=== PATIENT | female | born 1950 | race Caucasian/White ===

== ENCOUNTER → 2017-06-23 | Outpatient (CLI) | payer MEDICARE ==
[2017-06-23 11:37] LABS: Cholesterol 145 mg/dL (<200); HDL Cholesterol 68 mg/dL (40-60); LDL Cholesterol,Calculated 54 mg/dL (0-99); Triglycerides 115 mg/dL (<150)
== END | disposition home or self-care (01) ==
LOC: EEVIPCON 10:39 → LABWHC1 10:39
PROVIDERS: ATTEND Psychiatry & Neurology Pain Medicine
DX: I63.9 Cerebral infarction, unspecified (principal)
CPT/HCPCS: 36415; 80061

== ENCOUNTER 2021-09-12 10:58 | Day surgery (SDC) | payer MEDICARE ==
[2021-09-09 12:41] VITALS: BMI 21.9
[~2021-09-12 10:58] MED LIST: HYDROmorphone 0.5 MG/0.5 ML SYRINGE IVP PRN; LACTATED RINGERS 1,000 ML IV SCH; LIDOCAINE 1% (10MG/ML) FOR IV START INTRADERMA PRN; ONDANSETRON 4 MG/2 ML VIAL IVP ONE
[2021-09-12] MEDS ORDERED: ONDANSETRON 4 MG/2 ML VIAL IVP ONE (12:07)
[2021-09-12] MEDS ORDERED: fentaNYL (PF) 50 MCG/ML 2 ML AMP IVP ONE (12:18)
[2021-09-12] MEDS ORDERED: MIDAZOLAM 2 MG/2 ML VIAL IVP ONE (12:18)
[2021-09-12] MEDS ORDERED: CLINDAMYCIN 600 MG in DEXTROSE 5% IN WATER 50 ML IVPB STA ×2 (12:25)
[2021-09-12] MEDS ORDERED: LIDOCAINE 2% INJ 20 MG/ML (2 ML VIAL) ONE (12:34)
[2021-09-12] MEDS ORDERED: ROPIVACAINE 5 MG/ML 30 ML VIAL ONE (12:34)
[2021-09-12] MEDS ORDERED: PROPOFOL 10 MG/ML 20 ML VIAL IV ONE (12:34)
[2021-09-12] MEDS ORDERED: SODIUM CHLORIDE 0.9% (PF) 10 ML VIAL ONE (12:34)
[2021-09-12 13:38] VITALS: TEMP 97.2
--- NOTE | 2021-09-12 13:47 | P.ANPRN ---
Procedure Note - Anesthesia - Nerve Block Performed Left Axillary Single Time Out Performed: Yes ([id number]) Date of Procedure: 09/12/21 Procedure Start Time: 12:18 Procedure Stop Time: 12:24 Location of Patient: PreOp Indication: Acute Post-Operative Pain, Requested by Surgeon Specifically requested for management of pain by DrDaniella: Blair Kurtz Sedation Type: Sedate with meaningful contact maintained Preparation: Sterile Prep Position: Supine Catheter: None Needle Types: Pajunk Needle Gauge: 21 Ultrasound used to visualize needle placement: Yes Ultrasound used to observe medication spread: Yes Injectate: 0.5% Ropivacaine (see comment for volume) (7.5cc + 2.5cc nacl at each median, radial, ulnar and msklcut) Blood Aspirated: No Pain Paresthesia on Injection Noted: No Resistance on Injection: Normal Image Stored and Saved: Yes
--- NOTE | 2021-09-12 14:09 | P.OP ---
Date of Procedure: 09/12/21 Procedure(s) Performed: PREOPERATIVE DIAGNOSES: 1. Left distal radius comminuted displaced Colles' type fracture 2. Moderate osteoporosis POSTOPERATIVE DIAGNOSES: 1. Left distal radius comminuted displaced Colles' type fracture 2. Moderate osteoporosis PROCEDURES PERFORMED: 1. Left distal radius fracture closed reduction and percutaneous pinning 2. Short arm splint placement ANESTHESIA: java software: None COMPLICATIONS: None ESTIMATED BLOOD LOSS: Less than 1 mL. DISPOSITION: To post-anesthesia care unit INDICATIONS: Virginia is a 71-year-old female who fell a couple weeks ago and sustained a displaced fracture of the distal radius. The fracture was initially reduced with good alignment, however has shifted out of place over the past week. We have discussed leaving this fracture alone and letting it heal with residual deformity which would probably be acceptable in terms of function, but considering the amount of dorsal angulation I feel that closed reduction percutaneous pinning would the optimal treatment for this situation. The patient wishes to proceed with surgery. I discussed the steps of the surgery as well as potential risks and complications as being inclusive of, but not limited to: Bleeding, infection, scarring, discomfort, blood vessel and/or nerve damage, need for further surgery, deformity, stiffness, tendon injury, pin site infection, osteomyelitis, loss of limb or life, and other risks. The patient is aware these risks and wishes to proceed with surgery. The consent form has been signed. PROCEDURE: After appropriate consent was obtained, the patient was taken to the operating room placed in the supine position. Anesthesia was initiated, and after confirmation of adequate anesthesia, the patient was carefully positioned. Care was taken to make sure that all pressure points were adequately padded. Prepping and draping were completed in the usual aseptic fashion using ChloraPrep. Timeout was called, confirming patient identity, side, procedure, and administration of antibiotics. The patient's fracture was reduced using manual manipulation technique. This was performed under mini C-arm guidance. Once an acceptable reduction had been obtained, 2 small 3 mm incisions were created on the dorsal aspect of the wrist and spread down to bone using a small mosquito hemostat. 0.062 inch K wires were deployed through these incisions using Kapandji intra-focal pinning technique into the proximal fragment under mini C-arm guidance. 2 such pins were used: one between extensor compartments 3 and 4, and another between compartments 4 and 5. Both pins had good purchase in the volar cortex, and the fracture was buttressed into a very good position on the lateral view. Additionally, one radial styloid pin was placed just dorsal to the first dorsal compartment and directed across the fracture site into the proximal fragment cortex. All 3 pins had satisfactory far cortical purchase. Final mini C-arm images were taken and saved, showing satisfactory realignment of the distal radius fracture. Pins were bent and trimmed. Relaxing incisions were created around the pins using a 15 blade as necessary. Pin protectors were applied. A nonadherent dressing was applied over the pin sites and a well-padded well molded volar splint with the wrist in neutral was applied. Patient tolerated the procedure well and taken to recovery room in stable condition. Counts were correct.
[2021-09-12] MEDS ORDERED: LACTATED RINGERS 1,000 ML IV ONE (14:33)
[2021-09-12 15:05] VITALS: BP 132/82; PULSE 80; RESP 18
== END 2021-09-12 15:50 | disposition home or self-care (01) ==
LOC: OR 10:58
PROVIDERS: ATTEND Orthopaedic Surgery
DX: S52.532A Colles' fracture of left radius, initial encounter for closed fracture (principal); M81.0 Age-related osteoporosis without current pathological fracture; G89.18 Other acute postprocedural pain
CPT/HCPCS: 64415; 25606; J2250; J2405; J3010; J2795; J2704; J1170; J2001

== ENCOUNTER → 2022-02-03 | Outpatient (CLI) | payer MEDICARE ==
--- NOTE | 2022-02-03 20:34 | MR ---
EXAMINATION TYPE: MR cervical spine wo con DATE OF EXAM: 02/03/2022 COMPARISON: None HISTORY: Neck pain, degeneration, stenosis TECHNIQUE: Multiplanar, multisequence images of the cervical spine were acquired without contrast. C2-C3: No evidence for degenerative disc disease. No disc bulge/herniation or protrusion. No Canal stenosis. Foramina are patent bilaterally. There is some facet arthropathy change. C3-C4: Facet arthropathy and uncovertebral joint hypertrophy result in some right-sided foraminal enc roachment, no evident disc herniation. C4-C5: Uncovertebral joint hypertrophy causes some mild right-sided foraminal encroachment which is c ontributed by some anterolisthesis grade 1 C4-5, no disc herniation. C5-C6: Posterior extension endplate disc complex causes mild anterior mass effect on the thecal sac. Uncovertebral joint hypertrophy causes bilateral foraminal encroachment. C6-C7: Posterior extension endplate disc complex causes mild anterior mass effect on the thecal sac. Uncovertebral joint hypertrophy contributes to cause foraminal encroachment bilaterally. C7-T1: No evidence for degenerative disc disease. No disc bulge/herniation or protrusion. No Canal stenosis. Foramina are patent bilaterally. Cervical segments are intact. There is a scoliotic curvature in the thoracic spine, compensatory cur ve in the cervical spine. There is multilevel spondylosis. No significant spinal stenosis. Reversal the normal cervical lordosis is noted centered at C5. Cervical spinal cord is of normal signal. Cran iovertebral junction relationships are within normal limits. IMPRESSION: Scoliosis, degenerative disc disease, facet arthropathy, multilevel foraminal encroachment.
== END | disposition home or self-care (01) ==
LOC: RADMRIMAIN 19:30
PROVIDERS: ATTEND Orthopaedic Surgery
DX: M48.02 Spinal stenosis, cervical region (principal); M50.30 Other cervical disc degeneration, unspecified cervical region
CPT/HCPCS: 72141

== ENCOUNTER → 2022-02-06 | Outpatient (CLI) | payer MEDICARE ==
[~2022-02-06] MED LIST changes: +DENOSUMAB 60 MG/ML 1 ML SYRINGE SQ NR; -HYDROmorphone 0.5 MG/0.5 ML SYRINGE IVP PRN; -LACTATED RINGERS 1,000 ML IV SCH; -LIDOCAINE 1% (10MG/ML) FOR IV START INTRADERMA PRN; -ONDANSETRON 4 MG/2 ML VIAL IVP ONE
[2022-02-06 08:01] VITALS: BP 120/73; PULSE 67; RESP 16; TEMP 97.5
== END | disposition home or self-care (01) ==
LOC: PROCWHC3 07:46
PROVIDERS: ATTEND Family Medicine
DX: M81.0 Age-related osteoporosis without current pathological fracture (principal)
CPT/HCPCS: 96372; J0897

== ENCOUNTER 2022-04-05 09:02 | Day surgery (SDC) | payer MEDICARE ==
[2022-03-31 14:21] VITALS: BMI 24.7
[~2022-04-05 09:02] MED LIST changes: -DENOSUMAB 60 MG/ML 1 ML SYRINGE SQ NR; +LACTATED RINGERS 1,000 ML IV SCH; +LIDOCAINE 1% (10MG/ML) FOR IV START INTRADERMA PRN
[2022-04-05 09:49] VITALS: RESP 18; TEMP 98.1
[2022-04-05] MEDS ORDERED: LACTATED RINGERS 1,000 ML IV ONE (09:53)
--- NOTE | 2022-04-05 10:28 | P.GSHP ---
History of Present Illness H&P Date: 04/05/22 CHIEF COMPLAINT: Colon screen HISTORY OF PRESENT ILLNESS: The patient is a 72-year-old female who presents for colon screen. Lower endoscopy was offered for further evaluation and management. PAST MEDICAL HISTORY: Please see list. PAST SURGICAL HISTORY: Please see list. MEDICATIONS: Please see list. ALLERGIES: Please see list. SOCIAL HISTORY: No illicit drug use FAMILY HISTORY: No reports of Crohn disease or ulcerative colitis. REVIEW OF ORGAN SYSTEMS: CONSTITUTIONAL: No reports of fevers or chills. PHYSICAL EXAM: VITAL SIGNS: Stable GENERAL: Well-developed pleasant in no acute distress. HEENT: No scleral icterus. Extraocular movements grossly intact. Moist buccal mucosa. NECK: Supple without lymphadenopathy. CHEST: Unlabored respirations. Equal bilateral excursions. CARDIOVASCULAR: Regular rate and rhythm. Distal 2+ pulses. ABDOMEN: Soft, nontender, nondistended. MUSCULOSKELETAL: No clubbing, cyanosis, or edema. ASSESSMENT: 1. Colon screen. PLAN: 1. Recommend proceeding with a lower endoscopy Past Medical History Past Medical History: COPD, CVA/TIA, Deep Vein Thrombosis (DVT), Hyperlipidemia, Renal Disease, Seizure Disorder Additional Past Medical History / Comment(s): 2017 cva right side weakness and slow responses at times, short term memory impairment s/p stroke. osteoporosis, low BP, glaucoma, stage 3 chronic kidney disease, chronic sinusitis, left hand fracture s/p fall, stomach ulcers, syncope, dehydration, epilepsy over 25 years ago from last seizures, small hole in heart, 3 small brain aneurysms History of Any Multi-Drug Resistant Organisms: None Reported Past Surgical History: Adenoidectomy, Hysterectomy, Tonsillectomy Additional Past Surgical History / Comment(s): left hand surgey, Past Anesthesia/Blood Transfusion Reactions: No Reported Reaction Smoking Status: Current every day smoker - Past Family History Mother Family Medical History: No Reported History Medications and Allergies Home Medications Medication Instructions Recorded Confirmed Type Aspirin 81 mg PO HS 09/09/21 03/31/22 History Atorvastatin [Lipitor] 40 mg PO HS 09/09/21 03/31/22 History Calcium Carbonate [Calcium] 1,200 mg PO DAILY 09/09/21 03/31/22 History Clopidogrel [Plavix] 75 mg PO HS 09/09/21 03/31/22 History Fluticasone Propionate 220 Mcg 2 puff INHALATION RT-BID PRN 09/09/21 03/31/22 History [Flovent 220 Mcg Inhaler (Mhu)] HYDROcodone/APAP 7.5-325MG [[place] 1 tab PO Q6HR PRN 09/09/21 03/31/22 History 7.5-325] Ipratropium [place] 0.06%Nasal 2 spray EA NOSTRIL BID 09/09/21 03/31/22 History [Atrovent Nasal 0.06%] Latanoprost/Pf [Latanoprost 0.005% 1 drop BOTH EYES HS 09/09/21 03/31/22 History Eye Drop] Midodrine HCl [ProAmantine] 2.5 mg PO DAILY 09/09/21 03/31/22 History Ubidecarenone [Co Q-10] 200 mg PO DAILY 09/09/21 03/31/22 History HYDROcodone/APAP 7.5-325MG [[place] 1 - 2 tab PO Q6HR PRN #32 tab 09/12/21 03/31/22 Rx 7.5-325] Denosumab [Prolia] 60 mg SQ DIRECTED 03/31/22 03/31/22 History Allergies Allergy/AdvReac Type Severity Reaction Status Date / Time Penicillins Allergy throat Verified 03/31/22 14:06 swelling Surgical - Exam Vital Signs Temp Pulse Resp BP Pulse Ox 98.1 F 78 18 132/68 98 04/05/22 09:48 04/05/22 09:48 04/05/22 09:48 04/05/22 09:48 04/05/22 09:48
[2022-04-05] MEDS ORDERED: PROPOFOL 10 MG/ML 20 ML VIAL IV ONE (10:30)
[2022-04-05 11:32] VITALS: BP 139/77; PULSE 65
--- NOTE | 2022-04-05 12:04 | P.PCN ---
Date of Procedure: 04/05/22 Description of Procedure: PREOPERATIVE DIAGNOSIS: Colon screening POSTOPERATIVE DIAGNOSIS: Colitis Diverticulosis Internal hemorrhoids, grade 2 OPERATION: Colonoscopy to the distal ascending colon SURGEON: Joanna Dang MD. ANESTHESIA: MAC. INDICATIONS: The patient is an 72-year-old female who presents for colonoscopy screening. Benefits and risks were described and informed consent was obtained. DESCRIPTION OF PROCEDURE: The patient had undergone Sutab prep. The patient had been brought into the operating room and laid in the left lateral decubitus position. After adequate intravenous sedation, the rectum was examined with 2% lidocaine jelly. External hemorrhoids were encountered. The rectal tone was within normal limits. No lesions were palpated in the rectal vault. An Olympus colonoscope was advanced to the distal ascending cold and despite abdominal wall pressure. The prep was good. Sigmoid diverticulosis was encountered. No colonic polyps were found and removed. Colitis at rectum. Retroflexion of the scope demonstrated grade 3 internal hemorrhoids without active bleeding or inflammation. The colon was desufflated. The patient had tolerated the procedure well. Withdrawal time was over 6 minutes. FINDINGS: Aronchick preparation quality scale 2 (1-5) Internal hemorrhoids, grade 3 External hemorrhoids, grade 3. No arteriovenous malformations. Sigmoid diverticulosis Highly redundant sigmoid colon with termination of scope at distal ascending colon Colitis at rectum RECOMMENDATIONS: Recommend barium enema Plan - Discharge Summary New Discharge Prescriptions: Continue Midodrine HCl [ProAmantine] 2.5 mg PO DAILY Latanoprost/Pf [Latanoprost 0.005% Eye Drop] 1 drop BOTH EYES HS HYDROcodone/APAP 7.5-325MG [[place] 7.5-325] 1 tab PO Q6HR PRN PRN Reason: Pain Clopidogrel [Plavix] 75 mg PO HS Atorvastatin [Lipitor] 40 mg PO HS Denosumab [Prolia] 60 mg SQ DIRECTED Fluticasone Propionate 220 Mcg [Flovent 220 Mcg Inhaler] 2 puff INHALATION RT-BID PRN PRN Reason: Shortness Of Breath Calcium Carbonate [Calcium] 1,200 mg PO DAILY Ubidecarenone [Co Q-10] 200 mg PO DAILY Ipratropium [place] 0.06%Nasal [Atrovent Nasal 0.06%] 2 spray EA NOSTRIL BID Aspirin 81 mg PO HS HYDROcodone/APAP 7.5-325MG [[place] 7.5-325] 1 - 2 tab PO Q6HR PRN #32 tab PRN Reason: Pain Discharge Medication List Aspirin 81 mg PO HS 09/09/21 [History] Atorvastatin [Lipitor] 40 mg PO HS 09/09/21 [History] Calcium Carbonate [Calcium] 1,200 mg PO DAILY 09/09/21 [History] Clopidogrel [Plavix] 75 mg PO HS 09/09/21 [History] Fluticasone Propionate 220 Mcg [Flovent 220 Mcg Inhaler] 2 puff INHALATION RT- BID PRN 09/09/21 [History] HYDROcodone/APAP 7.5-325MG [[place] 7.5-325] 1 tab PO Q6HR PRN 09/09/21 [History] Ipratropium [place] 0.06%Nasal [Atrovent Nasal 0.06%] 2 spray EA NOSTRIL BID 09/09/21 [History] Latanoprost/Pf [Latanoprost 0.005% Eye Drop] 1 drop BOTH EYES HS 09/09/21 [History] Midodrine HCl [ProAmantine] 2.5 mg PO DAILY 09/09/21 [History] Ubidecarenone [Co Q-10] 200 mg PO DAILY 09/09/21 [History] HYDROcodone/APAP 7.5-325MG [[place] 7.5-325] 1 - 2 tab PO Q6HR PRN #32 tab 09/12/21 [Rx] Denosumab [Prolia] 60 mg SQ DIRECTED 03/31/22 [History] Follow up Appointment(s)/Referral(s): Joanna Dang MD [STAFF PHYSICIAN] - 04/18/22 Patient Instructions/Handouts: Diverticulosis (GEN), Diverticulosis Diet (GEN), Colitis (ED) Activity/Diet/Wound Care/Special Instructions: Recommend barium enema Discharge Disposition: HOME SELF-CARE
== END 2022-04-05 12:28 | disposition home or self-care (01) ==
LOC: ORWHC2ENDO 09:02
PROVIDERS: ATTEND Surgery Plastic and Reconstructive Surgery
DX: Z12.11 Encounter for screening for malignant neoplasm of colon (principal); K52.9 Noninfective gastroenteritis and colitis, unspecified; K64.4 Residual hemorrhoidal skin tags; K57.30 Diverticulosis of large intestine without perforation or abscess without bleeding; K64.2 Third degree hemorrhoids; J44.9 Chronic obstructive pulmonary disease, unspecified; Z79.51 Long term (current) use of inhaled steroids; F17.200 Nicotine dependence, unspecified, uncomplicated; Z86.73 Personal history of transient ischemic attack (TIA), and cerebral infarction without residual deficits; Z86.718 Personal history of other venous thrombosis and embolism; G40.909 Epilepsy, unspecified, not intractable, without status epilepticus; E78.5 Hyperlipidemia, unspecified; M81.0 Age-related osteoporosis without current pathological fracture; H40.9 Unspecified glaucoma; N18.30 Chronic kidney disease, stage 3 unspecified; Z87.81 Personal history of (healed) traumatic fracture; Z87.19 Personal history of other diseases of the digestive system; Z86.69 Personal history of other diseases of the nervous system and sense organs; Z86.79 Personal history of other diseases of the circulatory system; Z98.890 Other specified postprocedural states; Z79.82 Long term (current) use of aspirin; Z79.899 Other long term (current) drug therapy; Z79.02 Long term (current) use of antithrombotics/antiplatelets; Z88.0 Allergy status to penicillin
CPT/HCPCS: 45378; J2704

== ENCOUNTER → 2022-05-01 | Outpatient (CLI) | payer MEDICARE ==
--- NOTE | 2022-05-01 11:35 | FL ---
EXAMINATION TYPE: FL barium enema DATE OF EXAM: 05/01/2022 11:23 AM CLINICAL INDICATION:Female, 72 years old with history of D12.6 BENIGN NEOPLASM OF COLON, UNSPECIFIED; COMPARISON: None TECHNIQUE: The procedure was explained and patient history elicited. All patient questions were answ ered prior to beginning. Multiple spot fluoroscopic images of the colon were obtained after the recta l administration of liquid barium as the contrast agent. Multiple postprocedural overhead images, w ere obtained and reviewed. Fluoroscopic time: 5 minutes 17 seconds min Fluoroscopic images:0 Radiographs taken: 41 FINDINGS: The special agent in charge abdominal radiograph demonstrates a normal bowel gas pattern without dilated loo ps of small or large bowel. There is no evidence for organomegaly or pneumoperitoneum. No abnormal calcifications. The visualized osseous structures are intact. Multilevel disc degeneration changes t hroughout the spine. The colon demonstrates redundant course with multiple overlapping loops of colon. Contour without gertrudis dence of focal stricture, internal filling defects. Few scattered clonic diverticula present. Views of the cecum with manual compression are unremarkable. IMPRESSION: 1. No evidence for abnormal stricture or mass. 2. Colonic diverticulosis.
== END | disposition home or self-care (01) ==
LOC: RADFLMAIN 09:28
PROVIDERS: ATTEND Surgery Plastic and Reconstructive Surgery
DX: D12.6 Benign neoplasm of colon, unspecified (principal); K57.30 Diverticulosis of large intestine without perforation or abscess without bleeding
CPT/HCPCS: 74270

== ENCOUNTER → 2022-05-19 | Outpatient (CLI) | payer MEDICARE ==
[2022-05-19 23:00] LABS: Basophils # (A) 0.07 X 10*3/uL (0.00-0.10); Basophils % (A) 1.3 %; Eosinophils % (A) 7.2 %; HCT 42.1 % (37.2-46.3); HGB 12.8 g/dL (12.0-15.0); Immature Grans, Automated 0.4 %; Lymphocytes # (A) 1.65 X 10*3/uL (0.90-5.00); Lymphocytes % (A) 29.7 %; MCH 30.3 pg (27.0-32.0); MCHC 30.4 g/dL (32.0-37.0); MCV 99.8 fL (80.0-97.0); Mean Platelet Volume 9.9 fL (9.5-12.2); Monocytes % (A) 7.2 %; NRBC Per 100 WBC 0 /100 WBCS (0.0-0.0); Neutrophils # (A) 3.02 X 10*3/uL (1.80-7.70); Neutrophils % (A) 54.2 %; Platelet Count 174 X 10*3/uL (140-440); RBC 4.22 X 10*6/uL (4.10-5.20); WBC 5.56 X 10*3/uL (4.50-10.00)
[2022-05-19 23:30] LABS: % Iron Saturation 20.88 (12.00-45.00); African American GFR (CKD) 54.9 (60.0-200.0); Anion Gap 12.9 mmol/L (10.00-18.00); BUN/Creat Ratio 19.4 Ratio (12.00-20.00); Blood Urea Nitrogen 22.5 mg/dL (9.0-27.0); Calcium 9.6 mg/dL (8.7-10.3); Non-African American GFR(CKD) 47.3 (60.0-200.0); Phosphorus 3.5 mg/dL (2.4-5.1); Uric Acid 4.1 mg/dL (2.9-7.7)
[2022-05-19 23:43] LABS: Albumin 4.5 g/dL (3.8-4.9)
== END | disposition home or self-care (01) ==
LOC: LABWHC1 12:24
PROVIDERS: ATTEND Internal Medicine Nephrology
DX: E55.9 Vitamin D deficiency, unspecified (principal); N18.31 Chronic kidney disease, stage 3a; D63.1 Anemia in chronic kidney disease; M10.9 Gout, unspecified; N39.0 Urinary tract infection, site not specified; N25.81 Secondary hyperparathyroidism of renal origin; R80.9 Proteinuria, unspecified
CPT/HCPCS: 36415; 80048; 82040; 82306; 83540; 83550; 83735; 83970; 84100; 84550; 85025

== ENCOUNTER → 2022-11-13 | Outpatient (CLI) | payer MEDICARE ==
--- NOTE | 2022-11-15 08:02 | CTL ---
EXAMINATION TYPE: CT Low Dose Lung DATE OF EXAM ORDERED: 11/13/2022 HISTORY: 72-year-old female F17.210, nicotine dependence, current smoker with 40 pack-year history. L rudolph cancer screening CT DLP: 69.[address] CTDI: 2.0 mGy Automated exposure control for dose reduction was used. SCREENING VISIT: Baseline COMPARISON: None TECHNIQUE: Low dose computed tomography scan was performed through the chest with coronal and sagitta l reconstructions. CT DIAGNOSTIC QUALITY: Satisfactory FINDINGS: The heart is normal size without pericardial effusion. Aorta normal caliber with mild atherosclerotic arch calcifications and conventional arch vessel branc augie anatomy. No thoracic lymphadenopathy by CT size criteria. There is biapical pleural-parenchymal scarring and mild emphysematous change. Additional scattered baltazar bpleural interstitial thickening. There appears to be some interstitial density and groundglass fuentes e with a lower lung predominance along with some subpleural microcystic change and possible mild bron chiolectasis. Again, lower lung predominance. A few tiny calcified granulomas at the right base. Tiny 2 mm pulmonary nodule superior segment left lower lobe, axial image 123. Otherwise, no suspicious pulmonary nodule or mass. Visualized upper abdomen shows a 1 cm cortical lesion at the upper pole right kidney, probably a tiny cyst. This should be reassessed in 6 months to exclude a solid renal mass. Moderate atherosclerotic calcifications abdominal aorta. Bones: No osseous destructive process. IMPRESSION: 1. BI-RADS 2, benign. A few benign calcified granulomas as well as a tiny 2 mm left lower lobe pulmon marry nodule on baseline screening. 2. COPD with mild emphysema. 3. However, in addition, there is interstitial change scattered throughout, lower lung predominant gr oundglass, reticulations, and subpleural microcystic change with mild basilar bronchiolectasis. Consi fabio postinflammatory scarring, chronic aspiration, or interstitial pneumonitis such as NSIP. Pulmonar y medicine referral can be considered if no establish diagnosis and if symptomatic. CT 4. Six-month follow-up CT abdomen to reassess a 1 cm cortical lesion of the right kidney. Possible ti ny cyst. A solid mass should be excluded. LUNG RAD AND CT CHEST RECOMMENDATION: Lung-Rad 2 Benign Appearance or Behavior: Continue annual scre ening with LDCT in 12 months. S Modifier (other clinically significant findings): S, see above regarding 6 month follow-up CT abdom en recommendation.
== END | disposition home or self-care (01) ==
LOC: RADCTMAIN 16:12
PROVIDERS: ATTEND Family Medicine
DX: Z12.2 Encounter for screening for malignant neoplasm of respiratory organs (principal); J43.9 Emphysema, unspecified; J84.10 Pulmonary fibrosis, unspecified; R91.1 Solitary pulmonary nodule; F17.210 Nicotine dependence, cigarettes, uncomplicated
CPT/HCPCS: 71271

== ENCOUNTER → 2022-11-15 | Outpatient (CLI) | payer MEDICARE ==
[~2022-11-15] MED LIST changes: +DENOSUMAB 60 MG/ML 1 ML SYRINGE SQ NR; -LACTATED RINGERS 1,000 ML IV SCH; -LIDOCAINE 1% (10MG/ML) FOR IV START INTRADERMA PRN
[2022-11-15 11:57] VITALS: BP 114/69; PULSE 86; RESP 15; TEMP 98.3
== END ==
LOC: PROCWHC3 11:46
PROVIDERS: ATTEND Family Medicine
DX: M81.0 Age-related osteoporosis without current pathological fracture (principal)
CPT/HCPCS: 96372; J0897

== ENCOUNTER → 2023-05-22 | Outpatient (CLI) | payer MEDICARE ==
[2023-05-22 08:47] VITALS: BP 136/78; PULSE 74; RESP 16; TEMP 97.5
== END ==
LOC: PROCWHC3 08:00
PROVIDERS: ATTEND Family Medicine
DX: M81.0 Age-related osteoporosis without current pathological fracture (principal)
CPT/HCPCS: 96372; J0897

== ENCOUNTER → 2023-11-21 | Outpatient (CLI) | payer MEDICARE ==
--- NOTE | 2023-11-21 11:45 | CTL ---
EXAMINATION TYPE: CT Low Dose Lung DATE OF EXAM: 11/21/2023 7:28 AM CLINICAL INDICATION:Female, 73 years old with history of Z12.2 LUNG CA SCR F17.210 CURRENT SMOKER; cu rrent smoker 1/2 PPD x40 years , history of tobacco use. COMPARISON: 11/13/2022 TECHNIQUE: Multiple axial non-contrast scans were obtained from approximately the lung apices through the upper abdomen. Coronal and sagittal reformatted images were obtained. Low dose technique was uti lized. CT DLP: 71.5 mGycm, Automated exposure control for dose reduction was used. CT Contrast: Contrast used: None Oral contrast used: None FINDINGS: ======== Lack of intravenous contrast and low dose technique limits the evaluation of the vascular and soft ti ssue structures. LUNGS: No evidence of pulmonary fibrosis. No evidence of focal consolidation, pneumothorax or pleural effusion. Centrilobular emphysema changes. Scattered interstitial prominence. Nodules: RUL: None. RML: 4 mm series 9 image 13 RLL: None. MELIA: None. LLL: None. AIRWAY: Patent and unremarkable. HEART: Size within normal limits. MEDIASTINUM: No gross evidence of adenopathy. VASCULATURE: No aortic aneurysm. MUSCULOSKELETAL: No acute osseous abnormalities SOFT TISSUES/LYMPH NODES: Unremarkable. LOWER NECK: No significant findings. UPPER ABDOMEN: No significant findings. IMPRESSION: 1. No clinically significant pulmonary nodules. 2. Mild emphysema. 3. Mild interstitial lung disease most pronounced on the periphery similar to prior. CT LUNG RAD AND CT CHEST RECOMMENDATION: Lung-Rad 2 Benign Appearance or Behavior: Continue annual sc reening with LDCT in 12 months. S Modifier (other clinically significant findings): None Recommend smoking cessation (if current smoker), or continuation of smoking cessation (if prior smoke r). Annual screening for lung cancer with low-dose computed tomography is recommended in adults ages 55 to 77 years who have a 30 pack-year smoking history and currently smoke or have quit within the pa st 15 years. Screening should be discontinued once a person has not smoked for 15 years or develops a health problem that substantially limits life expectancy or the ability or willingness to have curat cheko lung surgery. Lung rads 2021 [email or web address]
== END | disposition home or self-care (01) ==
LOC: RADCTMAIN 06:55
PROVIDERS: ATTEND Family Medicine
DX: Z12.2 Encounter for screening for malignant neoplasm of respiratory organs (principal); F17.210 Nicotine dependence, cigarettes, uncomplicated; J43.9 Emphysema, unspecified; J84.9 Interstitial pulmonary disease, unspecified
CPT/HCPCS: 71271

== ENCOUNTER → 2023-11-21 | Outpatient (CLI) | payer MEDICARE ==
--- NOTE | 2023-11-21 09:24 | BD ---
EXAMINATION TYPE: Axial Bone Density DATE OF EXAM: 11/21/2023 CLINICAL HISTORY: 73 years old Female. ICD-10 CODE: Z78.0 ASYMP [place]KR[place] STATE Height: 62.5 in Weight: 142 lbs FRAX RISK QUESTIONS: Family History (Parent hip fracture): yes mother History of Fracture in Adulthood: left wrist age 71 Secondary Osteoporosis: 3. Menopause before 45: age 36 Current Tobacco Use: yes RISK FACTORS HISTORY OF: History of Wrist Fracture: lt wrist age 71 Surgery to Wrist (left): age 71 MEDICATIONS: Osteoporosis Medications: Which medication: Prolia How Lon years EXAM MEASUREMENTS: Bone mineral densitometry was performed using the [email or web address] System. Bone mineral density as measured about the Lumbar spine is: ----- L1-L4(G/cm2): 1.007 T Score Values are as follows: ----- L1: -2.0 ----- L2: -1.2 ----- L3: -0.8 ----- L4: -1.9 ----- L1-L4: -1.4 Z Score Values are as follows: ----- L1: -0.3 ----- L2: 0.6 ----- L3: 0.9 ----- L4: -0.1 ----- L1-L4: 0.3 Bone mineral density baseline Bone mineral density about the R hip (g/cm2): 0.715 Bone mineral density about the L hip (g/cm2): 0.780 T Score values are as follows: -----R Neck: -2.6 -----L Neck: -2.4 -----R Total: -2.3 -----L Total: -1.8 Z Score values are as follows: -----R Neck: -0.7 -----L Neck: -0.6 -----R Total: -0.7 -----L Total: -0.2 Bone mineral density baseline FRAX%s: The graph provided illustrates a 33.9% chance for a major osteoporotic fx and a 23.0% chance for the hips probability for fx in 10 years time. IMPRESSION: Osteopenia (T Score between -2.5 and -1). There is slightly increased risk of fracture and the patient may be considered for treatment. Re-Screen 2-5 years. NOTE: T-SCORE=SD OF THE YOUNG ADULT MEAN.
== END | disposition home or self-care (01) ==
LOC: RADBDWWP 07:21
PROVIDERS: ATTEND Family Medicine
DX: M81.0 Age-related osteoporosis without current pathological fracture (principal); M85.89 Other specified disorders of bone density and structure, multiple sites; Z78.0 Asymptomatic menopausal state
CPT/HCPCS: 77080

== ENCOUNTER → 2023-12-17 | Outpatient (CLI) | payer MEDICARE ==
[~2023-12-17] MED LIST changes: -DENOSUMAB 60 MG/ML 1 ML SYRINGE SQ NR; +DENOSUMAB 60 MG/ML 1 ML SYRINGE SQ ONE
[2023-12-17 13:42] VITALS: BP 118/75; PULSE 100; RESP 16; TEMP 97.5
== END | disposition home or self-care (01) ==
LOC: PROCWHC3 13:33
PROVIDERS: ATTEND Family Medicine
DX: M81.0 Age-related osteoporosis without current pathological fracture (principal)
CPT/HCPCS: 96372; J0897

== ENCOUNTER 2024-06-19 11:56 | Outpatient (CLI) | payer MEDICARE ==
[2024-06-19 12:19] VITALS: BP 107/72; PULSE 71; RESP 18; TEMP 97.3
[2024-06-19] MEDS: DENOSUMAB 60 MG/ML 1 ML SYRINGE SQ NR (12:20)
== END 2024-06-19 12:41 | disposition home or self-care (01) ==
LOC: PROCWHC3 11:56
PROVIDERS: ATTEND Family Medicine
DX: M81.0 Age-related osteoporosis without current pathological fracture (principal)
CPT/HCPCS: 96372; J0897

== ENCOUNTER 2024-07-25 09:26 | Inpatient (IN) | payer MEDICARE ==
--- NOTE | 2024-07-25 09:46 | ED ---
General Adult HPI - General Chief complaint: Shortness of Breath Stated complaint: weakness,fever,VENKATA Time Seen by Provider: 07/25/24 09:37 Source: patient, family, RN notes reviewed Mode of arrival: wheelchair Limitations: no limitations - History of Present Illness Initial comments: Patient is a 74-year-old female present to the emergency department not feeling well. Patient was diagnosed positive influenza 1 week ago and was given Tamiflu. Patient was feeling somewhat better and then started getting worse again yesterday. Patient feels chilled. Patient is weak all over. Patient does have cough that is productive, unclear what color. Patient has generalized weakness and some mild dyspnea. Patient does have underlying COPD. Majority of history taken from daughter as patient prefers not to talk. Patient did take Tylenol this morning prior to arrival - Related Data Home Medications Medication Instructions Recorded Confirmed Aspirin 81 mg PO DAILY 09/09/21 07/25/24 Atorvastatin [Lipitor] 40 mg PO DAILY 09/09/21 07/25/24 Clopidogrel [Plavix] 75 mg PO DAILY 09/09/21 07/25/24 Latanoprost/Pf [Latanoprost 0.005% 1 drop BOTH EYES HS 09/09/21 07/25/24 Eye Drop] Midodrine HCl [ProAmantine] 2.5 mg PO DAILY 09/09/21 07/25/24 Calcium Carbonate/Vitamin D3 2 tab PO DAILY 07/25/24 07/25/24 [Calcium 600 mg-Vit D3 5 mcg (200 unit)] Ubidecarenone [Coenzyme Q10] 200 mg PO DAILY 07/25/24 07/25/24 Allergies Allergy/AdvReac Type Severity Reaction Status Date / Time Penicillins Allergy throat Verified 07/25/24 09:51 swelling Review of Systems ROS Statement: Those systems with pertinent positive or pertinent negative responses have been documented in the HPI. ROS Other: All systems not noted in ROS Statement are negative. Constitutional: Reports: fever, chills Eyes: Denies: eye pain Respiratory: Reports: as per HPI, cough, dyspnea Endocrine: Reports: fatigue Gastrointestinal: Denies: abdominal pain Past Medical History Past Medical History: COPD, CVA/TIA, Deep Vein Thrombosis (DVT), Hyperlipidemia, Renal Disease, Seizure Disorder Additional Past Medical History / Comment(s): 2017 cva right side weakness and slow responses at times, short term memory impairment s/p stroke. osteoporosis, low BP, glaucoma, stage 3 chronic kidney disease, chronic sinusitis, left hand fracture s/p fall, stomach ulcers, syncope, dehydration, epilepsy over 25 years ago from last seizures, small hole in heart, 3 small brain aneurysms History of Any Multi-Drug Resistant Organisms: None Reported Past Surgical History: Adenoidectomy, Hysterectomy, Tonsillectomy Additional Past Surgical History / Comment(s): left hand surgey, Past Anesthesia/Blood Transfusion Reactions: No Reported Reaction Past Psychological History: No Psychological Hx Reported Smoking Status: Current every day smoker Past Alcohol Use History: None Reported Past Drug Use History: None Reported - Past Family History Mother Family Medical History: No Reported History Brother(s) Family Medical History: Cancer Additional Family Medical History / Comment(s): Lung CA, TB General Exam Limitations: no limitations General appearance: alert Head exam: Present: normocephalic Eye exam: Present: normal appearance Neck exam: Present: normal inspection Respiratory exam: Present: rhonchi Cardiovascular Exam: Present: regular rate, normal rhythm GI/Abdominal exam: Present: soft. Absent: tenderness Extremities exam: Present: normal inspection. Absent: pedal edema, calf t enderness Neurological exam: Present: alert Psychiatric exam: Present: flat affect Skin exam: Present: normal color Course Vital Signs 07/25/24 07/25/24 07/25/24 09:30 10:18 10:45 Temperature 98 F Pulse Rate 99 98 97 Respiratory 20 22 Rate Blood Pressure 118/75 O2 Sat by Pulse 90 L 96 Oximetry 07/25/24 07/25/24 07/25/24 10:55 11:05 14:00 Temperature Pulse Rate 98 92 94 Respiratory 20 18 Rate Blood Pressure 116/69 106/48 O2 Sat by Pulse 97 96 Oximetry EKG Findings - EKG Results: EKG: interpreted by ERMD, sinus rhythm, normal axis, normal QRS, normal ST/T Medical Decision Making - Medical Decision Making Was pt. sent in by a medical professional or institution (, PA, SECURITY GUARD SUPERVISOR, urgent care, hospital, or fpc...) When possible be specific @ -No Did you speak to anyone other than the patient for history (EMS, parent, family, police, friend...)? What history was obtained from this source @ -Daughter is present helps provide history as patient is a poor historian Did you review nursing and triage notes (agree or disagree)? Why? @ -I reviewed and agree with nursing and triage notes Were old charts reviewed (outside hosp., previous admission, EMS record, old EKG, old radiological studies, urgent care reports/EKG's, fpc records)? Report findings @ -No old charts were reviewed Differential Diagnosis (chest pain, altered mental status, abdominal pain women, abdominal pain men, vaginal bleeding, weakness, fever, dyspnea, syncope, headache, dizziness, GI bleed, back pain, seizure, CVA, palpatations, mental health, musculoskeletal)? @ -Differential Dyspnea: Coronary syndrome, arrhythmia, tamponade, asthma, COPD, pulmonary embolism, pneumonia, pneumothorax, pulmonary effusion, anaphylaxis, diabetic ketoacidosis, flailed chest, pulmonary contusion, diaphragmatic rupture, anemia, neuromuscular, this is not meant to be an all-inclusive list. EKG interpreted by me (3pts min.). @ -As above X-rays interpreted by me (1pt min.). @ -Chest x-ray concerning for lower infiltrate CT interpreted by me (1pt min.). @ -None done U/S interpreted by me (1pt. min.). @ -None done What testing was considered but not performed or refused? (CT, X-rays, U/S, labs)? Why? @ -None What meds were considered but not given or refused? Why? @ -None Did you discuss the management of the patient with other professionals (professionals i.e. , PA, SECURITY GUARD SUPERVISOR, lab, RT, psych nurse, social worker masters, salesperson men's hats, teacher, enforcement safety officer, case fitter)? Give summary @ -Case discussed with Dr. Newton who did evaluate patient and will admit covering Dr. Shields. Was smoking cessation discussed for >3mins.? @ -No Was critical care preformed (if so, how long)? @ -31 minutes critical care time Were there social determinants of health that impacted care today? How? (Homelessness, low income, unemployed, alcoholism, drug addiction, transportation, low edu. Level, literacy, decrease access to med. care, retirement, rehab)? @ -No Was there de-escalation of care discussed even if they declined (Discuss DNR or withdrawal of care, Hospice)? DNR status @ -No What co-morbidities impacted this encounter? (DM, HTN, Smoking, COPD, CAD, Cancer, CVA, ARF, Chemo, Hep., AIDS, mental health diagnosis, sleep apnea, morbid obesity)? @ -None Was patient admitted / discharged? Hospital course, mention meds given and route, prescriptions, significant lab abnormalities, going to OR and other pertinent info. @ -Patient presents with cough dyspnea and weakness. Chest x-ray showing potential pneumonia. There is concern for pneumonia and sepsis diagnosed at 1440. Blood cultures and IV antibiotics will be added. Admission orders written. Patient and family updated. Patient was reevaluated. Undiagnosed new problem with uncertain prognosis? @ -No Drug Therapy requiring intensive monitoring for toxicity (Heparin, Nitro, Insulin, Cardizem)? @ -No Were any procedures done? @ -No Diagnosis/symptom? @ -Pneumonia Acute, or Chronic, or Acute on Chronic? @ -Acute Uncomplicated (without systemic symptoms) or Complicated (systemic symptoms)? @ -Default Side effects of treatment? @ -No Exacerbation, Progression, or Severe Exacerbation? @ -No Poses a threat to life or bodily function? How? (Chest pain, USA, CT, pneumonia, PE, COPD, DKA, ARF, appy, cholecystitis, CVA, Diverticulitis, Homicidal, Suicidal, threat to staff... and all critical care pts) @ -No - Lab Data Result diagrams: 07/25/24 10:03 07/25/24 10:03 Lab Results 07/25/24 07/25/24 07/25/24 Range/Units 10:03 10:03 10:03 WBC 15.1 H (3.8-10.6) k/uL RBC 4.13 (3.80-5.40) m/uL Hgb 12.6 (11.4-16.0) gm/dL Hct 39.2 (34.0-46.0) % MCV 95.0 (80.0-100.0) fL MCH 30.5 (25.0-35.0) pg MCHC 32.1 (31.0-37.0) g/dL RDW 13.0 (11.5-15.5) % Plt Count 197 (150-450) k/uL MPV 7.4 Neutrophils % (Manual) 60 % Band Neuts % (Manual) 25 % Lymphocytes % (Manual) 6 % Monocytes % (Manual) 8 % Eosinophils % (Manual) 1 % Neutrophils # (Manual) 12.80 H (1.3-7.7) k/uL Lymphocytes # (Manual) 0.91 L (1.0-4.8) k/uL Monocytes # (Manual) 1.21 H (0-1.0) k/uL Eosinophils # (Manual) 0.15 (0-0.7) k/uL Nucleated RBCs 0 (0-0) /100 WBC Manual Slide Review Performed RBC Morphology Normal Sodium 139 (137-145) mmol/L Potassium 3.8 (3.5-5.1) mmol/L Chloride 105 (98-107) mmol/L Carbon Dioxide 23 (22-30) mmol/L Anion Gap 11 mmol/L BUN 28 H (7-17) mg/dL Creatinine 1.01 (0.52-1.04) mg/dL Est GFR (CKD-EPI)AfAm 64 (>60 ml/min/1.73 sqM) Est GFR (CKD-EPI)NonAf 55 (>60 ml/min/1.73 sqM) Glucose 153 H (74-99) mg/dL Lactic Ac Sepsis Rflx Plasma Lactic Acid Sam 2.8 H* (0.7-2.0) mmol/L Calcium 9.9 (8.4-10.2) mg/dL Magnesium 1.3 L (1.6-2.3) mg/dL Total Bilirubin 1.2 (0.2-1.3) mg/dL AST 24 (14-36) U/L ALT 34 (4-34) U/L Alkaline Phosphatase 111 (38-126) U/L NT-Pro-B Natriuret Pep pg/mL Total Protein 6.6 (6.3-8.2) g/dL Albumin 4.1 (3.5-5.0) g/dL Influenza Type A (PCR) (Not Detectd) Influenza Type B (PCR) (Not Detectd) RSV (PCR) (Not Detectd) SARS-CoV-2 (PCR) (Not Detectd) 07/25/24 07/25/24 07/25/24 Range/Units 10:03 10:03 10:32 WBC (3.8-10.6) k/uL RBC (3.80-5.40) m/uL Hgb (11.4-16.0) gm/dL Hct (34.0-46.0) % MCV (80.0-100.0) fL MCH (25.0-35.0) pg MCHC (31.0-37.0) g/dL RDW (11.5-15.5) % Plt Count (150-450) k/uL MPV Neutrophils % (Manual) % Band Neuts % (Manual) % Lymphocytes % (Manual) % Monocytes % (Manual) % Eosinophils % (Manual) % Neutrophils # (Manual) (1.3-7.7) k/uL Lymphocytes # (Manual) (1.0-4.8) k/uL Monocytes # (Manual) (0-1.0) k/uL Eosinophils # (Manual) (0-0.7) k/uL Nucleated RBCs (0-0) /100 WBC Manual Slide Review RBC Morphology Sodium (137-145) mmol/L Potassium (3.5-5.1) mmol/L Chloride (98-107) mmol/L Carbon Dioxide (22-30) mmol/L Anion Gap mmol/L BUN (7-17) mg/dL Creatinine (0.52-1.04) mg/dL Est GFR (CKD-EPI)AfAm (>60 ml/min/1.73 sqM) Est GFR (CKD-EPI)NonAf (>60 ml/min/1.73 sqM) Glucose (74-99) mg/dL Lactic Ac Sepsis Rflx Y Plasma Lactic Acid Sam (0.7-2.0) mmol/L Calcium (8.4-10.2) mg/dL Magnesium (1.6-2.3) mg/dL Total Bilirubin (0.2-1.3) mg/dL AST (14-36) U/L ALT (4-34) U/L Alkaline Phosphatase (38-126) U/L NT-Pro-B Natriuret Pep 2720 pg/mL Total Protein (6.3-8.2) g/dL Albumin (3.5-5.0) g/dL Influenza Type A (PCR) Not Detected (Not Detectd) Influenza Type B (PCR) Not Detected (Not Detectd) RSV (PCR) Not Detected (Not Detectd) SARS-CoV-2 (PCR) Not Detected (Not Detectd) Disposition Clinical Impression: Pneumonia Disposition: ADMITTED IP TO THIS HOSP Is patient prescribed a controlled substance at d/c from ED?: No Referrals: Travon Marc DO [Primary Care Provider] - 1-2 days Time of Disposition: 14:41
[2024-07-25] MEDS: IBUPROFEN 400 MG TAB PO STA (10:17)
[2024-07-25] MEDS: SODIUM CHLORIDE 0.9% 1,000 ML IV SCH (10:17)
--- NOTE | 2024-07-25 10:25 | XR ---
EXAMINATION TYPE: XR chest 2V DATE OF EXAM: 07/25/2024 10:19 AM COMPARISON: None CLINICAL INDICATION: Female, 74 years old with history of difficulty breathing, shortness of breath TECHNIQUE: AP and lateral views FINDINGS: Heart borderline enlarged. Interstitial prominence and mild patchy bibasilar densities. No sizable pl eural effusion. IMPRESSION: Correlate for CHF with pulmonary vascular congestion. [facility], , 07/25/2024 10:22 AM
[2024-07-25 10:29] LABS: ALT 34 U/L (4-34); AST 24 U/L (14-36); African American GFR (CKD) 64 (>60 ml/min/1.73 sqM); Albumin 4.1 g/dL (3.5-5.0); Alkaline Phosphatase 111 U/L (38-126); Anion Gap 11 mmol/L; Blood Urea Nitrogen 28 mg/dL (7-17); Calcium 9.9 mg/dL (8.4-10.2); Carbon Dioxide 23 mmol/L (22-30); Chloride 105 mmol/L (98-107); Glucose 153 mg/dL (74-99); Magnesium 1.3 mg/dL (1.6-2.3); Non-African American GFR(CKD) 55 (>60 ml/min/1.73 sqM); Potassium 3.8 mmol/L (3.5-5.1); Sodium 139 mmol/L (137-145); Total Bilirubin 1.2 mg/dL (0.2-1.3); Total Protein 6.6 g/dL (6.3-8.2)
[2024-07-25 10:38] LABS: HCT 39.2 % (34.0-46.0); HGB 12.6 gm/dL (11.4-16.0); MCH 30.5 pg (25.0-35.0); MCHC 32.1 g/dL (31.0-37.0); Mean Platelet Volume 7.4; Platelet Count 197 k/uL (150-450); RBC 4.13 m/uL (3.80-5.40); WBC 15.1 k/uL (3.8-10.6)
[2024-07-25] MEDS: IPRATROPIUM-ALBUTEROL 3 ML NEB INHALATION STA (10:44)
[2024-07-25 10:54] LABS: Influenza A Not Detected (Not Detectd); Influenza B Not Detected (Not Detectd); RSV Not Detected (Not Detectd)
[2024-07-25 11:39] LABS: Band Neutrophils % 25 %; Eosinophils # (M) 0.15 k/uL (0-0.7); Lymphocytes # (M) 0.91 k/uL (1.0-4.8); Monocytes # (M) 1.21 k/uL (0-1.0); Neutrophils % (M) 60 %; Nucleated Red Blood Cells 0 /100 WBC (0-0); Total Cells Counted 100
[2024-07-25 11:40] LABS: RBC Morphology Normal
[2024-07-25] MEDS ORDERED: DEXTROSE 50% SYRINGE 50 ML IVP PRN ×2 (13:56)
--- NOTE | 2024-07-25 14:29 | HP ---
HISTORY AND PHYSICAL CHIEF COMPLAINT: Shortness of breath, fever, weakness. HISTORY OF PRESENT ILLNESS: This is a 74-year-old woman with a past medical history of multiple medical problems, was diagnosed of having influenza about a week ago from [facility]. The patient had cough and sputum. The patient was given Tamiflu, but the patient was getting weaker, short of breath, confused. The patient had an episode of vomiting yesterday. The patient is feeling chilly feeling. The patient came to [facility], had features of sepsis and as well as right lower lobe pneumonia. The patient is being admitted for further evaluation and treatment. There is no history of any headache, or loss of consciousness at this time. The viral testing is negative at this time. PAST MEDICAL HISTORY: Reviewed include COPD, hyperlipidemia, DVT. Rest of the history and rest of the chart are also reviewed. HOME MEDICATIONS: Reviewed include Coenzyme Q10. Rest of the medications reviewed. ALLERGIES: Penicillin. FAMILY HISTORY: History of lung cancer. SOCIAL HISTORY: Current smoking. REVIEW OF SYSTEMS: Fourteen-point review of systems is negative except as mentioned earlier. PHYSICAL EXAMINATION: VITAL SIGNS: Pulse is 92, blood pressure 116/69, respirations 20. HEENT: Conjunctivae normal. NECK: No JVD. CARDIOVASCULAR: S1, S2. RESPIRATIONS: Breath sounds diminished at the bases. Bilateral scattered rhonchi and crackles. ABDOMEN: Soft, nontender. NERVOUS SYSTEM: Diffusely weak. LABORATORY DATA: Lactic acid 2.8. Rest of the labs are noted. ASSESSMENT: 1. Chronic obstructive pulmonary disease acute exacerbation with right lower pneumonia, possibly gram-negative. 2. History of recent flu. 3. Possible sepsis present on admission, change in mental status, metabolic encephalopathy. 4. Increased WBC. 5. History of deep venous thrombosis. 6. Hyperlipidemia. 7. History of seizure. 8. Multiple complex medical issues. RECOMMENDATIONS AND DISCUSSION: This is a 74-year-old woman, who presented with multiple complex medical issues, we will monitor the patient closely. Continue current management and continue symptomatic treatment. We will recommend broad-spectrum IV antibiotics. The patient had episodes of vomiting. I would recommend Zosyn to begin with Infectious Disease, Pulmonary consultation and cultures, bronchodilators, steroids. Prognosis guarded because of multiple complex medical issues. Further recommendations to follow. See orders for further details. Discussed with family at length at the bedside. MMODL / IJN: [id number] /
[2024-07-25] MEDS: LEVOFLOXACIN 500MG-D5W PMX 500 MG in DEXTROSE/WATER 1 100ML.BAG IVPB SCH (14:34)
[2024-07-25] MEDS: methylPREDNISolone SOD SUCCI 125 MG/2 ML VIAL IV SCH (14:37)
[2024-07-25] MEDS: PANTOPRAZOLE 40 MG/10 ML VIAL IVP SCH (14:39)
[2024-07-25] MEDS ORDERED: PNEUMONIA PROTOCOL UTILIZED 1 EACH MISC PO PRN (14:41)
[2024-07-25] MEDS: HEPARIN SODIUM,PORCINE 5,000 UNIT/ML 1 ML VIAL SQ SCH (15:17)
[2024-07-25] MEDS: CEFEPIME 2 GM in SODIUM CHLORIDE 0.9% 100 ML IVPB STA (15:29)
[2024-07-25] MEDS: CEFEPIME 2 GM in SODIUM CHLORIDE 0.9% 100 ML IVPB SCH ×2 (15:44→22:51)
[2024-07-25] MEDS: AZITHROMYCIN 500 MG in SODIUM CHLORIDE 0.9% 250 ML IVPB STA (16:12)
[2024-07-25] MEDS: FORMOTEROL FUMARATE 20 MCG/2 ML NEBU INHALATION SCH (16:34)
[2024-07-25] MEDS: BUDESONIDE 1 MG/2 ML NEBU INHALATION SCH (16:34)
[2024-07-25] MEDS: IPRATROPIUM-ALBUTEROL 3 ML NEB INHALATION SCH (16:36)
[2024-07-25 18:10] LABS: Glucose,Whole Blood 159 mg/dL (70-110)
[2024-07-25] MEDS: INSULIN LISPRO (HumaLOG) 100 UNIT/ML 10 mL VL SQ SCH (18:15)
[2024-07-25] MEDS: HYDROcodone/APAP 5-325MG 1 EACH TAB PO PRN (18:16)
--- NOTE | 2024-07-25 19:18 | CT ---
EXAMINATION TYPE: CT chest angio for PE DATE OF EXAM: 07/25/2024 6:53 PM COMPARISON: 11/21/2023 CLINICAL INDICATION: Female, 74 years old with history of elevated d dimer / shortness of breath., Hi gh dimer, SOB, weakness. Flu x 1 week ago with fever., TECHNIQUE: CT of the chest is performed on a spiral scan at 2 mm thick sections. Study is performed with intravenous contrast timed for evaluation for pulmonary embolism. This will limit additional po rtions of the evaluation. 10mm MIP images reconstructed by the technologist are reviewed on the comp uter in the coronal and sagittal planes. Contrast used:50 cc mL of Isovue 370 with IV Contrast, (none if empty) Oral contrast used: (none if empty) CT DLP: 229 mGycm, Automated exposure control for dose reduction was used. FINDINGS: No persistent filling defects are evident to suggest an acute pulmonary embolism. No mediastinal or hilar adenopathy enlarged by CT criteria is evident. There are several small lymph nodes within the mediastinum increased in size from comparison. The ascending aorta diameter at the level of the main pulmonary artery is 3.5 cm. The main pulmonary artery diameter at the bifurcation is 2.6 cm. No definite coronary artery calcification evident. There is a large consolidation with air bronchograms posterior medial right lung. Correlate for pneum onia or mass. Infiltrate is also present left infrahilar region. Findings are new from the comparison of 11/21/[address] sections were through the upper abdomen. Upper abdomen appears unremarkable. IMPRESSION: 1. No acute pulmonary embolism. 2. Consolidation or mass within the posterior medial right lung base. Correlate with symptoms. Follow -up to clearing is recommended. 3. Scattered infiltrates in the left lower lung field. Mass and infectious etiologies within the diff erential. [facility], , 07/25/2024 7:15 PM
[2024-07-25] MEDS ORDERED: IPRATROPIUM-ALBUTEROL 3 ML NEB INHALATION PRN (20:02)
[2024-07-25 23:33] LABS: Glucose,Whole Blood 164 mg/dL (70-110)
[2024-07-26] MEDS: LATANOPROST 0.005% OPHTH DROPS 2.5 ML BTL BOTH EYES SCH (01:21)
[2024-07-26 06:07] LABS: Glucose,Whole Blood 159 mg/dL (70-110)
--- NOTE | 2024-07-26 07:15 | P.CONS ---
History of Present Illness - Reason for Consult Consult date: 07/25/24 Sepsis Requesting physician: Pilar Newton - Chief Complaint Weakness and cough x days - History of Present Illness Patient is a 74-year-old female with a past medical history significant for COPD, CVA/TIA, Deep Vein Thrombosis (DVT), Hyperlipidemia, Renal Disease, Seizure Disorder presenting to the hospital for evaluation of not feeling well in this patient who was recently diagnosed with influenza A and has been treated with the Tamiflu patient mention did have some improvement initially however started getting worse day before presentation to the hospital has been complaining of feeling chilled generalized weakness patient also complaining of cough which has been moderate intensity bring up some sputum but not sure about the color and also associated shortness of breath with the symptoms the patient was evaluated on presentation to the hospital patient was afebrile no fever have been called subsequently patient was mildly tachycardic heart rate of 99 but not hypotensive she was hypoxic with O2 sats of 90% on presentation to the hospital currently on 2 L nasal cannula oxygen patient did have white count of 15.1 with a left shift creatinine is 1.01 electrolytes are normal liver enzymes normal influenza RSV COVID testing negative patient did yun ve a chest x-ray suggestive of correlate for CHF with pulmonary vascular congestion patient has been started on cefepime and Zithromax infectious disease was consulted for further management of antibiotic therapy Review of Systems Positive point and negatives has been mentioned in the HPI, complete review of systems was performed and all other systems are negative Past Medical History Past Medical History: COPD, CVA/TIA, Deep Vein Thrombosis (DVT), Hyperlipidemia, Renal Disease, Seizure Disorder Additional Past Medical History / Comment(s): 2017 cva right side weakness and slow responses at times, short term memory impairment s/p stroke. osteoporosis, low BP, glaucoma, stage 3 chronic kidney disease, chronic sinusitis, left hand fracture s/p fall, stomach ulcers, syncope, dehydration, epilepsy over 25 years ago from last seizures, small hole in heart, 3 small brain aneurysms History of Any Multi-Drug Resistant Organisms: None Reported Past Surgical History: Adenoidectomy, Hysterectomy, Tonsillectomy Additional Past Surgical History / Comment(s): left hand surgey, Past Anesthesia/Blood Transfusion Reactions: No Reported Reaction Past Psychological History: No Psychological Hx Reported Smoking Status: Current every day smoker Past Alcohol Use History: None Reported Past Drug Use History: None Reported - Past Family History Mother Family Medical History: No Reported History Brother(s) Family Medical History: Cancer Additional Family Medical History / Comment(s): Lung CA, TB Medications and Allergies Home Medications Medication Instructions Recorded Confirmed Type Aspirin 81 mg PO DAILY 09/09/21 07/25/24 History Atorvastatin [Lipitor] 40 mg PO DAILY 09/09/21 07/25/24 History Clopidogrel [Plavix] 75 mg PO DAILY 09/09/21 07/25/24 History Latanoprost/Pf [Latanoprost 0.005% 1 drop BOTH EYES HS 09/09/21 07/25/24 History Eye Drop] Midodrine HCl [ProAmantine] 2.5 mg PO DAILY 09/09/21 07/25/24 History Calcium Carbonate/Vitamin D3 2 tab PO DAILY 07/25/24 07/25/24 History [Calcium 600 mg-Vit D3 5 mcg (200 unit)] Ubidecarenone [Coenzyme Q10] 200 mg PO DAILY 07/25/24 07/25/24 History Allergies Allergy/AdvReac Type Severity Reaction Status Date / Time Penicillins Allergy throat Verified 07/25/24 09:51 swelling Physical Exam Vitals: Vital Signs Temp Pulse Resp BP Pulse Ox 07/25/24 14:00 94 18 106/48 96 07/25/24 11:05 92 20 116/69 97 07/25/24 10:55 98 07/25/24 10:45 97 07/25/24 10:18 98 22 96 07/25/24 09:30 98 F 99 20 118/75 90 L Intake and Output 07/24/24 07/25/24 07/25/24 22:59 06:59 14:59 Other: Weight 63.503 kg GENERAL DESCRIPTION: Elderly female lying in bed, no distress. No tachypnea or accessory muscle of respiration use. HEENT: Shows Pallor , no scleral icterus. Oral mucous membrane is dry. No thrush NECK: Trachea central, no thyromegaly. LUNGS: Unlabored breathing. Decreased breath sound at the base HEART: S1, S2, regular rate and rhythm. No loud murmur ABDOMEN: Soft, no tenderness , guarding or rigidity, no organomegaly EXTREMITIES: No edema of feet. SKIN: No rash, no masses palpable. NEUROLOGICAL: The patient is awake, alert, oriented x3, mood and affect normal. Results CBC & Chem 7: 07/25/24 10:03 07/25/24 10:03 Labs: Abnormal Lab Results - Last 24 Hours (Table) 07/25/24 07/25/24 07/25/24 Range/Units 10:03 10:03 10:03 WBC 15.1 H (3.8-10.6) k/uL Neutrophils # (Manual) 12.80 H (1.3-7.7) k/uL Lymphocytes # (Manual) 0.91 L (1.0-4.8) k/uL Monocytes # (Manual) 1.21 H (0-1.0) k/uL BUN 28 H (7-17) mg/dL Glucose 153 H (74-99) mg/dL Plasma Lactic Acid Sam 2.8 H* (0.7-2.0) mmol/L Magnesium 1.3 L (1.6-2.3) mg/dL Assessment and Plan (1) Sepsis Current Visit: Yes Status: Acute Code(s): A41.9 - SEPSIS, UNSPECIFIED ORGANISM SNOMED Code(s): 49243544 (2) Penicillin allergy Current Visit: Yes Status: Acute Code(s): Z88.0 - ALLERGY STATUS TO PENICILLIN SNOMED Code(s): 35870952 (3) Leukocytosis Current Visit: Yes Status: Acute Code(s): D72.829 - ELEVATED WHITE BLOOD CELL COUNT, UNSPECIFIED SNOMED Code(s): 575230750 (4) Pneumonia Current Visit: Yes Status: Acute Code(s): J18.9 - PNEUMONIA, UNSPECIFIED ORGANISM SNOMED Code(s): 829541373 Plan: 1patient presented to hospital with generalized weakness increasing shortness of breath patient also have a cough productive of sputum patient did have tachycardia with a heart rate of 99 elevated white count meeting criteria for SIRS source is likely pneumonia in this patient who recently did have influenza will need to cover for resistant gram-positive as well as gram-negative pathogen 2-try to obtain sputum for Gram stain and culture 3-patient will be treated with cefepime and Zithromax while waiting for the workup to be completed We will follow on clinical condition and cultures to further adjust medication if needed Thank you for this consultation we will follow the patient along with you Dictation was produced using dragon dictation software. please excuse any grammatical, word or spelling errors. Time with Patient: Greater than 30
--- NOTE | 2024-07-26 07:22 | XR ---
EXAMINATION TYPE: XR chest 2V DATE OF EXAM: 07/26/2024 6:49 AM COMPARISON: 07/25/2024 CLINICAL INDICATION: Female, 74 years old with history of pneumonia, TECHNIQUE: XR chest 2V view(s) obtained. FINDINGS: The heart size is normal. The pulmonary vasculature is normal. Minimal infiltrate may be developing along the left lower lobe. Correlate for developing pneumonia. C onsider atypical pneumonia. IMPRESSION: 1. Mild developing infiltrate along the left lower lobe. Correlate for pneumonia. Atelectasis could b e considered. Consider atypical pneumonia. [facility], , 07/26/2024 7:20 AM
[2024-07-26] MEDS ORDERED: CALCIUM CARBONATE PO SCH (09:00)
[2024-07-26] MEDS ORDERED: VITAMIN D3 PO SCH (09:00)
[2024-07-26] MEDS ORDERED: [UNRECOGNIZED DRUG - OTHER] PO SCH (09:00)
[2024-07-26] MEDS: IPRATROPIUM-ALBUTEROL 3 ML NEB INHALATION SCH (09:07)
[2024-07-26 09:49] LABS: ALT 27 U/L (8-44); AST 20 U/L (13-35); Albumin 3.5 g/dL (3.8-4.9); Albumin/Globulin Ratio 1.94 Ratio (1.60-3.17); Alkaline Phosphatase 65 U/L (41-126); BUN/Creat Ratio 24.64 Ratio (12.00-20.00); Blood Urea Nitrogen 27.1 mg/dL (9.0-27.0); Calcium 8.4 mg/dL (8.7-10.3); Carbon Dioxide 20.6 mmol/L (21.6-31.8); Chloride 108 mmol/L (96-109); Globulin 1.8 g/dL (1.6-3.3); Glucose 142 mg/dL (70-110); Potassium 4.1 mmol/L (3.5-5.5); Sodium 141 mmol/L (135-145); Total Bilirubin 0.7 mg/dL (0.3-1.2); Total Protein 5.3 g/dL (6.2-8.2)
[2024-07-26 10:19] LABS: Basophils # (A) 0.07 X 10*3/uL (0.00-0.10); Basophils % (A) 0.5 %; Eosinophils # (A) 0.32 X 10*3/uL (0.04-0.35); Eosinophils % (A) 2.4 %; HCT 34.1 % (37.2-46.3); HGB 11.1 g/dL (12.0-15.0); Lymphocytes # (A) 0.75 X 10*3/uL (0.90-5.00); Lymphocytes % (A) 5.7 %; MCH 30.9 pg (27.0-32.0); MCHC 32.6 g/dL (32.0-37.0); Mean Platelet Volume 10.4 FL (9.5-12.2); Monocytes # (A) 0.45 X 10*3/uL (0.20-1.00); Monocytes % (A) 3.4 %; NRBC Per 100 WBC 0 X 10*3/uL (0.00-0.01); Neutrophils % (A) 83.9 %; Platelet Count 158 X 10*3/uL (140-440); RBC 3.59 X 10*6/uL (4.10-5.20); RDW 13.3 % (11.5-14.5); WBC 13.23 X 10*3/uL (4.50-10.00)
[2024-07-26] MEDS: MIDODRINE 5 MG TAB PO SCH (10:59)
[2024-07-26] MEDS: CHOLECALCIFEROL 25 MCG (1000 IU) TABLET PO SCH (11:02)
[2024-07-26] MEDS: CLOPIDOGREL 75 MG TAB PO SCH (11:03)
[2024-07-26] MEDS: CALCIUM CARBONATE 500 MG CHEWABLE PO SCH (11:03)
[2024-07-26] MEDS: PANTOPRAZOLE 40 MG TABLET PO SCH (11:03)
[2024-07-26] MEDS: ASPIRIN 81 MG PO SCH (11:03)
[2024-07-26] MEDS: ATORVASTATIN 40 MG TAB PO SCH (11:03)
[2024-07-26] MEDS: NICOTINE 14MG/24HR PATCH TRANSDERM SCH (11:08)
[2024-07-26] MEDS ORDERED: VANCOMYCIN IV PER PHARMACY 1 EACH MISC MISCELLANE PRN (11:24)
[2024-07-26 12:12] LABS: Glucose,Whole Blood 180 mg/dL (70-110)
[2024-07-26] MEDS: AZITHROMYCIN 500 MG in SODIUM CHLORIDE 0.9% 250 ML IVPB SCH (12:48)
[2024-07-26] MEDS: VANCOMYCIN 1,250 MG in SODIUM CHLORIDE 0.9% 250 ML IVPB ONE (14:22)
--- NOTE | 2024-07-26 14:54 | P.PN ---
Subjective Progress Note Date: 07/26/24 Principal diagnosis: Reason for follow-up is pneumonia Patient is a 74-year-old female with a past medical history significant for COPD, CVA/TIA, Deep Vein Thrombosis (DVT), Hyperlipidemia, Renal Disease, Seizure Disorder presenting to the hospital for evaluation of not feeling well in this patient who was recently diagnosed with influenza A and has been treated with the Tamiflu presented to hospital with weakness including shortness of breath and cough has been diagnosed with pneumonia. On today's evaluation that is 07/26/2024, patient did not have any fever and denies any chills, patient is breathing slightly comfortably on 3 L nasal oxygen, patient with no chest pain or any worsening cough patient did not have any abdominal pain nausea vomiting or any loose stools. Patient white count is down to 13.23, creatinine is 1.[address] angiogram of the chest that was negative for PE showed large consolidation medial right lung Objective - Vital Signs Vital signs: Vital Signs Temp 97.8 F 07/26/24 07:06 Pulse 86 07/26/24 12:31 Resp 20 07/26/24 07:06 BP 108/62 07/26/24 07:06 Pulse Ox 97 07/26/24 07:06 FiO2 Intake & Output 07/25/24 07/26/24 07/26/24 18:59 06:59 18:59 Output Total 350 Balance -350 Weight 63.503 kg 63.503 kg Output: Urine 350 Other: # Voids 2 3 # Bowel Movements 1 - Exam GENERAL DESCRIPTION: An elderly female lying in bed in no distress RESPIRATORY SYSTEM: Unlabored breathing , decreased breath sounds at bases HEART: S1 S2 regular rate and rhythm , ABDOMEN: Soft , no tenderness EXTREMITIES: No edema feet - Labs CBC & Chem 7: 07/26/24 05:55 07/26/24 05:55 Labs: Abnormal Lab Results - Last 24 Hours (Table) 07/25/24 07/25/24 07/25/24 Range/Units 14:51 14:51 18:04 WBC (4.50-10.00) X 10*3/uL RBC (4.10-5.20) X 10*6/uL Hgb (12.0-15.0) g/dL Hct (37.2-46.3) % Immature Gran # (0.00-0.04) X 10*3/uL Neutrophils # (1.80-7.70) X 10*3/uL Lymphocytes # (0.90-5.00) X 10*3/uL D-Dimer 28.80 H (<0.60) mg/L FEU Carbon Dioxide (21.6-31.8) mmol/L Anion Gap (4.00-12.00) mmol/L BUN (9.0-27.0) mg/dL Est GFR (CKD-EPI) (>=60) BUN/Creatinine Ratio (12.00-20.00) Ratio Glucose (70-110) mg/dL POC Glucose (mg/dL) 159 H (70-110) mg/dL Plasma Lactic Acid Sam 3.0 H* (0.7-2.0) mmol/L Calcium (8.7-10.3) mg/dL Total Protein (6.2-8.2) g/dL Albumin (3.8-4.9) g/dL Procalcitonin (0.02-0.50) ng/mL 07/25/24 07/26/24 07/26/24 Range/Units 23:32 05:55 05:55 WBC 13.23 H (4.50-10.00) X 10*3/uL RBC 3.59 L (4.10-5.20) X 10*6/uL Hgb 11.1 L (12.0-15.0) g/dL Hct 34.1 L (37.2-46.3) % Immature Gran # 0.54 H (0.00-0.04) X 10*3/uL Neutrophils # 11.10 H (1.80-7.70) X 10*3/uL Lymphocytes # 0.75 L (0.90-5.00) X 10*3/uL D-Dimer (<0.60) mg/L FEU Carbon Dioxide 20.6 L (21.6-31.8) mmol/L Anion Gap 12.40 H (4.00-12.00) mmol/L BUN 27.1 H (9.0-27.0) mg/dL Est GFR (CKD-EPI) 53 L (>=60) BUN/Creatinine Ratio 24.64 H (12.00-20.00) Ratio Glucose 142 H (70-110) mg/dL POC Glucose (mg/dL) 164 H (70-110) mg/dL Plasma Lactic Acid Sam (0.7-2.0) mmol/L Calcium 8.4 L (8.7-10.3) mg/dL Total Protein 5.3 L (6.2-8.2) g/dL Albumin 3.5 L (3.8-4.9) g/dL Procalcitonin (0.02-0.50) ng/mL 07/26/24 07/26/24 07/26/24 Range/Units 05:55 06:05 12:09 WBC (4.50-10.00) X 10*3/uL RBC (4.10-5.20) X 10*6/uL Hgb (12.0-15.0) g/dL Hct (37.2-46.3) % Immature Gran # (0.00-0.04) X 10*3/uL Neutrophils # (1.80-7.70) X 10*3/uL Lymphocytes # (0.90-5.00) X 10*3/uL D-Dimer (<0.60) mg/L FEU Carbon Dioxide (21.6-31.8) mmol/L Anion Gap (4.00-12.00) mmol/L BUN (9.0-27.0) mg/dL Est GFR (CKD-EPI) (>=60) BUN/Creatinine Ratio (12.00-20.00) Ratio Glucose (70-110) mg/dL POC Glucose (mg/dL) 159 H 180 H (70-110) mg/dL Plasma Lactic Acid Sam (0.7-2.0) mmol/L Calcium (8.7-10.3) mg/dL Total Protein (6.2-8.2) g/dL Albumin (3.8-4.9) g/dL Procalcitonin 2.82 H (0.02-0.50) ng/mL Assessment and Plan (1) Sepsis Current Visit: Yes Status: Acute Code(s): A41.9 - SEPSIS, UNSPECIFIED ORGANISM SNOMED Code(s): 92650958 (2) Penicillin allergy Current Visit: Yes Status: Acute Code(s): Z88.0 - ALLERGY STATUS TO PENICILLIN SNOMED Code(s): 61629706 (3) Leukocytosis Current Visit: Yes Status: Acute Code(s): D72.829 - ELEVATED WHITE BLOOD CELL COUNT, UNSPECIFIED SNOMED Code(s): 092458778 (4) Pneumonia Current Visit: Yes Status: Acute Code(s): J18.9 - PNEUMONIA, UNSPECIFIED ORGANISM SNOMED Code(s): 762924128 Plan: 1patient presented to hospital with generalized weakness increasing shortness of breath patient also have a cough productive of sputum patient did have tachycardia with a heart rate of 99 elevated white count meeting criteria for SIRS source is likely pneumonia in this patient who recently did have influenza will need to cover for resistant gram-positive as well as gram-negative pathogen 2-sputum has been obtained results will be followed 3-patient did have a CT of the chest with significant pneumonia right side, patient will be treated with cefepime and Zithromax while waiting for the culture finalize Family the bedside question concern answered Dictation was produced using [employer] dictation software. please excuse any grammatical, word or spelling errors. Time with Patient: Less than 30
--- NOTE | 2024-07-26 15:23 | P.CNPUL ---
History of Present Illness Consult date: 07/26/24 Reason for consult: dyspnea History of present illness: This is a 74-year-old female patient, presenting with symptoms of weakness, lethargy, cough, chest tightness, congestion, shortness of breath and wheeze. Her symptoms started approximately a week ago. At that time, the patient went to an urgent care and she was diagnosed having influenza infection. She was given Tamiflu. She did improve and her condition subsequently compensated. She was producing colored sputum. She was also getting progressively more weak and debilitated and for that reason she ended up coming into the hospital. In the hospital, she was given a combination of Rocephin and Zithromax. Repeat viral screen came back negative. The white cell count was at 13 with a hemoglobin of 11.1 and a platelet count of 158. D-dimer was quite elevated at 28. Based on that, the patient was given a CT angiogram that showed no evidence of any pulmonary embolism. However, there was an extensive consolidation in the right lower lobe posterior/superior segment in addition to some scattered infiltration in the left lung specially along the lines of the lingula. She is currently on oxygen at 3 L and her current pulse ox is 97%. Hemodynamically stable. She is a former smoker. She is known to have COPD. She also has a remote history of DVT and pulmonary embolism more than 20 years ago and the patient is currently off anticoagulants. She has history of hypertension, previous history of CVA back in 2017 with some right-sided weakness and impairment in the short-term memory following the stroke. She has osteoporosis, chronic stage III kidney disease, glaucoma, and previous history of [employer]IVE aneurysms, nonsurgical. Review of Systems Constitutional: Reports fatigue, Reports weakness Eyes: denies as per HPI, denies blurred vision, denies bulging eye, denies decreased vision, denies diplopia, denies discharge, denies dry eye, denies irritation, denies itching, denies pain, denies photophobia, denies loss of peripheral vision, denies loss of vision, denies tunnel vision/blind spots Ears: deny: decreased hearing, ear discharge, earache, tinnitus Ears, nose, mouth and throat: Reports as per HPI Breasts: absent: as per HPI, change in shape, gynecomastia, masses, nipple discharge, pain, skin changes, swelling Cardiovascular: Reports decreased exercise tolerance, Reports dyspnea on exertion Respiratory: Reports cough, Reports cough with sputum, Reports dyspnea, Reports wheezing Gastrointestinal: Reports as per HPI Genitourinary: Reports as per HPI Menstruation: Reports as per HPI Musculoskeletal: Reports muscle weakness Musculoskeletal: absent: ankle pain, ankle stiffness, ankle swelling, as per HPI, elbow pain, elbow stiffness, elbow swelling, foot pain, foot stiffness, foot swelling, hand pain, hand stiffness, hand swelling, hip pain, hip stiffness, hip swelling, knee pain, knee stiffness, knee swelling, shoulder pain, shoulder stiffness, shoulder swelling, wrist pain, wrist stiffness, wrist swelling Integumentary: Reports as per HPI Neurological: Reports as per HPI Psychiatric: Reports as per HPI Endocrine: Reports as per HPI, Reports fatigue Hematologic/Lymphatic: Reports as per HPI Allergic/Immunologic: Reports as per HPI Past Medical History Past Medical History: COPD, CVA/TIA, Deep Vein Thrombosis (DVT), Hyperlipidemia, Renal Disease, Seizure Disorder Additional Past Medical History / Comment(s): 2017 cva right side weakness and slow responses at times, short term memory impairment s/p stroke. osteoporosis, low BP, glaucoma, stage 3 chronic kidney disease, chronic sinusitis, left hand fracture s/p fall, stomach ulcers, syncope, dehydration, epilepsy over 25 years ago from last seizures, small hole in heart, 3 small brain aneurysms History of Any Multi-Drug Resistant Organisms: None Reported Past Surgical History: Adenoidectomy, Hysterectomy, Tonsillectomy Additional Past Surgical History / Comment(s): left hand surgey, Past Anesthesia/Blood Transfusion Reactions: No Reported Reaction Past Psychological History: No Psychological Hx Reported Smoking Status: Current every day smoker Past Alcohol Use History: None Reported Past Drug Use History: None Reported - Past Family History Mother Family Medical History: No Reported History Brother(s) Family Medical History: Cancer Additional Family Medical History / Comment(s): Lung CA, TB Medications and Allergies Home Medications Medication Instructions Recorded Confirmed Type Aspirin 81 mg PO DAILY 09/09/21 07/25/24 History Atorvastatin [Lipitor] 40 mg PO DAILY 09/09/21 07/25/24 History Clopidogrel [Plavix] 75 mg PO DAILY 09/09/21 07/25/24 History Latanoprost/Pf [Latanoprost 0.005% 1 drop BOTH EYES HS 09/09/21 07/25/24 History Eye Drop] Midodrine HCl [ProAmantine] 2.5 mg PO DAILY 09/09/21 07/25/24 History Calcium Carbonate/Vitamin D3 2 tab PO DAILY 07/25/24 07/25/24 History [Calcium 600 mg-Vit D3 5 mcg (200 unit)] Ubidecarenone [Coenzyme Q10] 200 mg PO DAILY 07/25/24 07/25/24 History Allergies Allergy/AdvReac Type Severity Reaction Status Date / Time Penicillins Allergy throat Verified 07/25/24 09:51 swelling Physical Exam Vitals: Vital Signs Temp Pulse Pulse Resp BP BP Pulse Ox 07/26/24 09:28 84 07/26/24 09:18 86 07/26/24 09:07 84 07/26/24 07:06 97.8 F 86 20 108/62 97 07/26/24 01:34 98.1 F 89 16 127/68 97 07/25/24 21:31 90 20 117/60 96 07/25/24 20:14 89 07/25/24 20:04 87 07/25/24 20:03 87 07/25/24 20:00 98.0 F 94 17 112/57 94 L 07/25/24 19:52 85 07/25/24 18:04 95 18 115/33 96 07/25/24 17:08 87 20 97/54 96 07/25/24 15:39 95 20 95/51 07/25/24 14:00 94 18 106/48 96 Intake and Output 07/25/24 07/26/24 07/26/24 22:59 06:59 14:59 Output Total 350 Balance -350 Output: Urine 350 Other: # Voids 2 3 # Bowel Movements 1 Weight 63.503 kg The patient appeared lethargic and weak, currently on 2 L of oxygen by nasal cannula. No altered mentation. No use of accessory muscles of breathing. Head exam is unremarkable. No scleral icterus or corneal arcus noted. Neck is without jugular venous distension, thyromegaly, or carotid bruits. Carotid upstrokes are brisk bilaterally. Lungs are scattered rhonchi and crackles heard bilaterally worse in the right lung base. Cardiac exam reveals the PMI to be normally sized and situated. Rhythm is regular. First and second heart sounds normal. No murmurs, rubs or gallops. Abdominal exam reveals normal bowel sounds, no masses, no organomegaly and no aortic enlargement. Extremities are nonedematous and both femoral and pedal pulses are normal. Examination of the skin revealed no evidence of significant rashes, suspicious appearing nevi or other concerning lesions. Neurologically, the patient is awake and alert and the patient does not have any focal neurological deficit. Cranial nerves are essentially intact. Results - Laboratory Findings CBC and BMP: 07/26/24 05:55 07/26/24 05:55 PT/INR, D-dimer D-Dimer 28.80 mg/L FEU (<0.60) H 07/25/24 14:51 Abnormal lab findings: Abnormal Labs 07/25/24 07/25/24 07/25/24 10:03 10:03 10:03 WBC 15.1 H RBC Hgb Hct Immature Gran # Neutrophils # Neutrophils # (Manual) 12.80 H Lymphocytes # Lymphocytes # (Manual) 0.91 L Monocytes # (Manual) 1.21 H D-Dimer Carbon Dioxide Anion Gap BUN 28 H Est GFR (CKD-EPI) BUN/Creatinine Ratio Glucose 153 H POC Glucose (mg/dL) Plasma Lactic Acid Sam 2.8 H* Calcium Magnesium 1.3 L Total Protein Albumin 07/25/24 07/25/24 07/25/24 14:51 14:51 18:04 WBC RBC Hgb Hct Immature Gran # Neutrophils # Neutrophils # (Manual) Lymphocytes # Lymphocytes # (Manual) Monocytes # (Manual) D-Dimer 28.80 H Carbon Dioxide Anion Gap BUN Est GFR (CKD-EPI) BUN/Creatinine Ratio Glucose POC Glucose (mg/dL) 159 H Plasma Lactic Acid Sam 3.0 H* Calcium Magnesium Total Protein Albumin 07/25/24 07/26/24 07/26/24 23:32 05:55 05:55 WBC 13.23 H RBC 3.59 L Hgb 11.1 L Hct 34.1 L Immature Gran # 0.54 H Neutrophils # 11.10 H Neutrophils # (Manual) Lymphocytes # 0.75 L Lymphocytes # (Manual) Monocytes # (Manual) D-Dimer Carbon Dioxide 20.6 L Anion Gap 12.40 H BUN 27.1 H Est GFR (CKD-EPI) 53 L BUN/Creatinine Ratio 24.64 H Glucose 142 H POC Glucose (mg/dL) 164 H Plasma Lactic Acid Sam Calcium 8.4 L Magnesium Total Protein 5.3 L Albumin 3.5 L 07/26/24 06:05 WBC RBC Hgb Hct Immature Gran # Neutrophils # Neutrophils # (Manual) Lymphocytes # Lymphocytes # (Manual) Monocytes # (Manual) D-Dimer Carbon Dioxide Anion Gap BUN Est GFR (CKD-EPI) BUN/Creatinine Ratio Glucose POC Glucose (mg/dL) 159 H Plasma Lactic Acid Sam Calcium Magnesium Total Protein Albumin - Diagnostic Findings Chest x-ray: image reviewed CT scan - chest: image reviewed Assessment and Plan Plan: Bilateral pneumonia following an acute viral infection, most likely secondary to bacterial superinfection. The patient had an influenza infection approximately a week ago and she was treated with Tamiflu. After some initial improvement, the patient's condition decompensated. Acute hypoxic respiratory failure currently on 3 days of oxygen by nasal cannula Acute leukocytosis related to above Generalized weakness and lethargy secondary to pneumonia, rule out underlying sepsis COPD exacerbation secondary to above with secondary shortness of breath Remote history of DVT and pulmonary embolism, currently on no anticoagulants Chronic kidney disease, currently inactive and stable History of seizure disorder History of CVA back in 2017 with some residual memory deficits and right-sided weakness History of [employer]IVE aneurysm History of glaucoma Osteoporosis Plan Titrate oxygen flow to maintain saturation above 90% Broad-spectrum antibiotic coverage coverage for gram-negative and staph. The patient will be given a combination of cefepime, Zithromax and vancomycin DuoNeb nebulized treatments [id number] IV Solu-Medrol 60 mg every 6 hours Check procalcitonin level Obtain sputum Gram stain and culture Obtain blood culture Resume home medications Heparin subcu for DVT prophylaxis Will continue to follow
[2024-07-26 16:46] LABS: Glucose,Whole Blood 250 mg/dL (70-110)
[2024-07-26 19:24] LABS: Glucose,Whole Blood 131 mg/dL (70-110)
--- NOTE | 2024-07-26 20:22 | US ---
EXAMINATION TYPE: US venous doppler duplex LE BI DATE OF EXAM: 07/26/2024 7:51 PM COMPARISON: NONE CLINICAL INDICATION: Female, 74 years old with history of dvt; DVT, Pain TECHNIQUE: The lower extremity deep venous system is examined utilizing real time linear array sonog summer with graded compression, color doppler sonography, and spectral doppler. SIDE PERFORMED: Bilateral FINDINGS: VESSELS IMAGED: Common Femoral Vein Deep Femoral Vein Greater Saphenous Vein * Femoral Vein Popliteal Vein Small Saphenous Vein * Proximal Calf Veins (* superficial vessels) Right Leg: Negative for DVT, Color Doppler imaging shows patency of the vessels. Spectral waveforms are within normal limits. Left Leg: Positive for DVT Popliteal Vein, Color Doppler imaging shows patency of the vessels. Spect ral waveforms are within normal limits. IMPRESSION: 1. Deep venous thrombosis within the left popliteal vein. 2. Right lower extremity ultrasound negative for deep venous thrombosis. [facility], , 07/26/2024 8:20 PM
--- NOTE | 2024-07-27 03:58 | PN ---
PROGRESS NOTE DATE OF SERVICE: 07/26/2024 SUBJECTIVE: This is a 74-year-old woman, who was admitted with fever, COPD exacerbation and right lower lobe pneumonia, who also had recent flu. The patient also is confused. The patient is on broad spectrum IV antibiotics. Cultures are negative so far. The flu testing was negative. This time, procalcitonin was elevated 2.82. PAST MEDICAL HISTORY: Reviewed. REVIEW OF SYSTEMS: Fourteen-point review of systems negative except as mentioned earlier., except tiredness. PHYSICAL EXAMINATION: VITAL SIGNS: Pulse is 84, blood pressure 108/65, respirations 20. HEENT: Conjunctivae normal. NECK: No JVD. CARDIOVASCULAR: S1, S2. RESPIRATIONS: Few scattered rhonchi. ABDOMEN: Soft. Nontender. LEGS: No edema. NERVOUS SYSTEM: Nonfocal. LABORATORY DATA: D-dimer is significantly elevated. CT angio of the chest showed a posteromedial lung base mass or consolidation on the right. ASSESSMENT: 1. Chronic obstructive pulmonary disease with exacerbation with bilateral pneumonia, right more than left with possibly gram-negative with sepsis present on admission. 2. Rule out right basal mass lesion. 3. History of recent flu. 4. Increased WBC. 5. History of deep venous thrombosis. 6. Hyperlipidemia. 7. History of seizure disorders. 8. Multiple complex medical issues. RECOMMENDATIONS: Recommended to continue with current management, continue with treatment. The patient is on cefepime. I will continue to monitor. I would recommend infectious Disease and Pulmonary consultations. I would also recommend ultrasound of the legs to complete the workup. Prognosis is extremely guarded because of multiple complex medical issues. Further recommendations were discussed with family. MMALLYSONL / KRYSTENN: [id number] /
[2024-07-27 04:18] LABS: African American GFR (CKD) 84 (>60 ml/min/1.73 sqM); Non-African American GFR(CKD) 73 (>60 ml/min/1.73 sqM)
[2024-07-27 06:01] LABS: Glucose,Whole Blood 146 mg/dL (70-110)
[2024-07-27] MEDS ORDERED: LEVOFLOXACIN 750MG-D5W PMX 750 MG in DEXTROSE/WATER 1 150ML.BAG IVPB SCH (09:00)
[2024-07-27] MEDS: VANCOMYCIN 1,250 MG in SODIUM CHLORIDE 0.9% 250 ML IVPB SCH (10:05)
--- NOTE | 2024-07-27 11:36 | P.PN ---
Subjective Progress Note Date: 07/27/24 This is a 74-year-old female patient, presenting with symptoms of weakness, lethargy, cough, chest tightness, congestion, shortness of breath and wheeze. Her symptoms started approximately a week ago. At that time, the patient went to an urgent care and she was diagnosed having influenza infection. She was given Tamiflu. She did improve and her condition subsequently compensated. She was producing colored sputum. She was also getting progressively more weak and debilitated and for that reason she ended up coming into the hospital. In the hospital, she was given a combination of Rocephin and Zithromax. Repeat viral screen came back negative. The white cell count was at 13 with a hemoglobin of 11.1 and a platelet count of 158. D-dimer was quite elevated at 28. Based on that, the patient was given a CT angiogram that showed no evidence of any pulmonary embolism. However, there was an extensive consolidation in the right lower lobe posterior/superior segment in addition to some scattered infiltration in the left lung specially along the lines of the lingula. She is currently on oxygen at 3 L and her current pulse ox is 97%. Hemodynamically stable. She is a former smoker. She is known to have COPD. She also has a remote history of DVT and pulmonary embolism more than 20 years ago and the patient is currently off anticoagulants. She has history of hypertension, previous history of CVA back in 2017 with some right-sided weakness and impairment in the short-term memory following the stroke. She has osteoporosis, chronic stage III kidney disease, glaucoma, and previous history of PHOTOCOPYING EQUIPMENT REPAIRER aneurysms, nonsurgical. On today's evaluation of 07/27/2024, the patient remains on broad-spectrum antibiotics. She is on a combination of cefepime Zithromax and vancomycin. Sputum and blood culture still pending for now. Clinically, feeling better, more awake and alert compared to yesterday. Cough and congestion somewhat subsided compared to yesterday. Hemodynamically stable remains on 3 L of oxygen by nasal cannula with a pulse ox of 98%. Procalcitonin level is elevated suggestive of underlying bacterial infection. Her procalcitonin level was at 2.35. Legionella urine antigen was negative. Viral screen was negative. Objective - Vital Signs Vital signs: Vital Signs Temp 98 F 07/27/24 07:54 Pulse 93 07/27/24 07:54 Resp 20 07/27/24 07:54 BP 118/66 07/27/24 07:54 Pulse Ox 98 07/27/24 07:54 FiO2 32 07/26/24 16:04 Intake & Output 07/26/24 07/27/24 07/27/24 18:59 06:59 18:59 Intake Total 150 Output Total 350 Balance -350 150 Intake: Oral 150 Output: Urine 350 Other: Voiding Method Toilet External Catheter # Voids 1 1 - Exam The patient appeared lethargic and weak, currently on 2 L of oxygen by nasal cannula. No altered mentation. No use of accessory muscles of breathing. Head exam is unremarkable. No scleral icterus or corneal arcus noted. Neck is without jugular venous distension, thyromegaly, or carotid bruits. Carotid upstrokes are brisk bilaterally. Lungs are scattered rhonchi and crackles heard bilaterally worse in the right lung base. Cardiac exam reveals the PMI to be normally sized and situated. Rhythm is regular. First and second heart sounds normal. No murmurs, rubs or gallops. Abdominal exam reveals normal bowel sounds, no masses, no organomegaly and no aortic enlargement. Extremities are nonedematous and both femoral and pedal pulses are normal. Examination of the skin revealed no evidence of significant rashes, suspicious appearing nevi or other concerning lesions. Neurologically, the patient is awake and alert and the patient does not have any focal neurological deficit. Cranial nerves are essentially intact. - Labs CBC & Chem 7: 07/26/24 05:55 07/27/24 03:25 Labs: Abnormal Lab Results - Last 24 Hours (Table) 07/26/24 07/26/24 07/26/24 Range/Units 05:55 05:55 05:55 WBC 13.23 H (4.50-10.00) X 10*3/uL RBC 3.59 L (4.10-5.20) X 10*6/uL Hgb 11.1 L (12.0-15.0) g/dL Hct 34.1 L (37.2-46.3) % Immature Gran # 0.54 H (0.00-0.04) X 10*3/uL Neutrophils # 11.10 H (1.80-7.70) X 10*3/uL Lymphocytes # 0.75 L (0.90-5.00) X 10*3/uL Carbon Dioxide 20.6 L (21.6-31.8) mmol/L Anion Gap 12.40 H (4.00-12.00) mmol/L BUN 27.1 H (9.0-27.0) mg/dL Est GFR (CKD-EPI) 53 L (>=60) BUN/Creatinine Ratio 24.64 H (12.00-20.00) Ratio Glucose 142 H (70-110) mg/dL POC Glucose (mg/dL) (70-110) mg/dL Calcium 8.4 L (8.7-10.3) mg/dL Total Protein 5.3 L (6.2-8.2) g/dL Albumin 3.5 L (3.8-4.9) g/dL Procalcitonin 2.82 H (0.02-0.50) ng/mL 07/26/24 07/26/24 07/26/24 Range/Units 12:09 16:44 19:22 WBC (4.50-10.00) X 10*3/uL RBC (4.10-5.20) X 10*6/uL Hgb (12.0-15.0) g/dL Hct (37.2-46.3) % Immature Gran # (0.00-0.04) X 10*3/uL Neutrophils # (1.80-7.70) X 10*3/uL Lymphocytes # (0.90-5.00) X 10*3/uL Carbon Dioxide (21.6-31.8) mmol/L Anion Gap (4.00-12.00) mmol/L BUN (9.0-27.0) mg/dL Est GFR (CKD-EPI) (>=60) BUN/Creatinine Ratio (12.00-20.00) Ratio Glucose (70-110) mg/dL POC Glucose (mg/dL) 180 H 250 H 131 H (70-110) mg/dL Calcium (8.7-10.3) mg/dL Total Protein (6.2-8.2) g/dL Albumin (3.8-4.9) g/dL Procalcitonin (0.02-0.50) ng/mL 07/27/24 Range/Units 05:59 WBC (4.50-10.00) X 10*3/uL RBC (4.10-5.20) X 10*6/uL Hgb (12.0-15.0) g/dL Hct (37.2-46.3) % Immature Gran # (0.00-0.04) X 10*3/uL Neutrophils # (1.80-7.70) X 10*3/uL Lymphocytes # (0.90-5.00) X 10*3/uL Carbon Dioxide (21.6-31.8) mmol/L Anion Gap (4.00-12.00) mmol/L BUN (9.0-27.0) mg/dL Est GFR (CKD-EPI) (>=60) BUN/Creatinine Ratio (12.00-20.00) Ratio Glucose (70-110) mg/dL POC Glucose (mg/dL) 146 H (70-110) mg/dL Calcium (8.7-10.3) mg/dL Total Protein (6.2-8.2) g/dL Albumin (3.8-4.9) g/dL Procalcitonin (0.02-0.50) ng/mL Microbiology - Last 24 Hours (Table) 07/26/24 16:01 Gram Stain - Preliminary Sputum 07/25/24 15:00 Blood Culture - Preliminary Blood Assessment and Plan Plan: Bilateral pneumonia following an acute viral infection, most likely secondary to bacterial superinfection. The patient had an influenza infection approximately a week ago and she was treated with Tamiflu. After some initial improvement, the patient's condition decompensated. Acute hypoxic respiratory failure currently on 3 days of oxygen by nasal cannula Acute leukocytosis related to above Generalized weakness and lethargy secondary to pneumonia, rule out underlying sepsis COPD exacerbation secondary to above with secondary shortness of breath Remote history of DVT and pulmonary embolism, currently on no anticoagulants Chronic kidney disease, currently inactive and stable History of seizure disorder History of CVA back in 2017 with some residual memory deficits and right-sided weakness History of PHOTOCOPYING EQUIPMENT REPAIRER aneurysm History of glaucoma Osteoporosis Plan Clinically better and more improved compared to yesterday. Still on broad- spectrum antibiotics and bronchodilators. She is also on steroids. Titrate oxygen flow to maintain saturation above 90% Broad-spectrum antibiotic coverage coverage for gram-negative and staph. The patient will be given a combination of cefepime, Zithromax and vancomycin. Procalcitonin is elevated suggestive of underlying bacterial infection. DuoNeb nebulized treatments [id number] IV Solu-Medrol 60 mg every 6 hours Check procalcitonin level is elevated Obtain sputum Gram stain and culture, still pending Obtain blood culture Resume home medications Heparin subcu for DVT prophylaxis Will continue to follow
[2024-07-27 11:56] LABS: Glucose,Whole Blood 194 mg/dL (70-110)
--- NOTE | 2024-07-27 13:25 | P.PN ---
Subjective Progress Note Date: 07/27/24 Principal diagnosis: Reason for follow-up is pneumonia Patient is a 74-year-old female with a past medical history significant for COPD, CVA/TIA, Deep Vein Thrombosis (DVT), Hyperlipidemia, Renal Disease, Seizure Disorder presenting to the hospital for evaluation of not feeling well in this patient who was recently diagnosed with influenza A and has been treated with the Tamiflu presented to hospital with weakness including shortness of breath and cough has been diagnosed with pneumonia. On today's evaluation that is 07/27/2024, Patient is afebrile patient is cur rently on 4 L nasal oxygen and mention breathing slightly comfortably denies any chest pain did have a cough but no worsening cough or sputum production no abdominal pain or diarrhea. The patient did have creatinine 0.81 blood in sputum cultures currently pending Objective - Vital Signs Vital signs: Vital Signs Temp 98 F 07/27/24 07:54 Pulse 93 07/27/24 07:54 Resp 20 07/27/24 07:54 BP 118/66 07/27/24 07:54 Pulse Ox 98 07/27/24 07:54 FiO2 32 07/26/24 16:04 Intake & Output 07/26/24 07/27/24 07/27/24 18:59 06:59 18:59 Intake Total 150 Output Total 350 Balance -350 150 Intake: Oral 150 Output: Urine 350 Other: Voiding Method Toilet External Catheter # Voids 1 1 - Exam GENERAL DESCRIPTION: An elderly female lying in bed in no distress RESPIRATORY SYSTEM: Unlabored breathing , decreased breath sounds at bases HEART: S1 S2 regular rate and rhythm , ABDOMEN: Soft , no tenderness EXTREMITIES: No edema feet - Labs CBC & Chem 7: 07/26/24 05:55 07/27/24 03:25 Labs: Abnormal Lab Results - Last 24 Hours (Table) 07/26/24 07/26/24 07/26/24 Range/Units 05:55 11:32 12:09 POC Glucose (mg/dL) 180 H (70-110) mg/dL Procalcitonin 2.82 H 2.34 H (0.02-0.50) ng/mL 07/26/24 07/26/24 07/27/24 Range/Units 16:44 19:22 05:59 POC Glucose (mg/dL) 250 H 131 H 146 H (70-110) mg/dL Procalcitonin (0.02-0.50) ng/mL Microbiology - Last 24 Hours (Table) 07/26/24 16:01 Gram Stain - Preliminary Sputum 07/25/24 15:00 Blood Culture - Preliminary Blood Assessment and Plan (1) Sepsis Current Visit: Yes Status: Acute Code(s): A41.9 - SEPSIS, UNSPECIFIED ORGANISM SNOMED Code(s): 83179688 (2) Penicillin allergy Current Visit: Yes Status: Acute Code(s): Z88.0 - ALLERGY STATUS TO PENICILLIN SNOMED Code(s): 38245490 (3) Leukocytosis Current Visit: Yes Status: Acute Code(s): D72.829 - ELEVATED WHITE BLOOD CELL COUNT, UNSPECIFIED SNOMED Code(s): 197362765 (4) Pneumonia Current Visit: Yes Status: Acute Code(s): J18.9 - PNEUMONIA, UNSPECIFIED ORGANISM SNOMED Code(s): 091771113 Plan: 1patient presented to hospital with generalized weakness increasing shortness of breath patient also have a cough productive of sputum patient did have tachycardia with a heart rate of 99 elevated white count meeting criteria for SIRS source is likely pneumonia in this patient who recently did have influenza will need to cover for resistant gram-positive as well as gram-negative pathogen 2-blood sputum culture has been pending 3-patient did have a CT of the chest with significant pneumonia right side, 4-patient will be continued cefepime and vancomycin while waiting for the culture to finalize discontinue Zithromax Dictation was produced using [employer] dictation software. please excuse any grammatical, word or spelling errors. Time with Patient: Less than 30
[2024-07-27 17:21] LABS: Glucose,Whole Blood 152 mg/dL (70-110)
[2024-07-27] MEDS: CEFEPIME 2 GM in SODIUM CHLORIDE 0.9% 100 ML IVPB SCH (17:26)
--- NOTE | 2024-07-27 19:23 | P.CONS ---
History of Present Illness - Reason for Consult Consult date: 07/27/24 Left lower extremity DVT - History of Present Illness The patient is a 74-year-old white female, with multiple medical problems. She had come into the emergency room, because of progressive shortness of breath, chest discomfort, and cough. The patient did go to the urgent care 7 to 8 days ago, because of respiratory symptoms as well as fever. She was diagnosed with influenza A, and was placed on Tamiflu. She states that she improved on the same initially, but then developed the above-mentioned symptoms, which were progressive causing her to come to the ER. In the ER her D-dimer was elevated leading to a CT angiogram. This was negative for PE but showed significant right lower lobe consolidation, as well as scattered infiltrates in the left lung. It was therefore felt that the patient likely had developed superimposed bacterial pneumonia. She was admitted, and placed on antibiotics. She is being followed by pulmonary medicine and ID The patient had Dopplers of bilateral lower extremities done, presumably for the elevated D-dimer. She states that she does get nocturnal leg cramps but has not noticed any change in pattern of her chronic complaints. Dopplers were negative on the right but on the left showed a popliteal DVT. Report unfortunately does not mention if this appears to be chronic or acute, or defines specifically if this is occlusive or nonocclusive. The wording of the report appears to indicate that it is nonocclusive The patient's labs showed a mild anemia and leukocytosis, consistent with the fact of infection. The patient states that she had DVT and PE many years ago. She does not recall details but feels that it may have been associated with a hospitalization. She states that she was having multiple seizures at that time. She had a stroke in 2017, and does have problems with recall. She believes that she was treated with warfarin for several months at the time. She has not been on any anticoagulation since but has been taking aspirin. Review of her records in this EMR shows no prior venous Dopplers. I also checked her records in [facility], with again no prior venous Dopplers found Review of Systems Constitutional: Reports fatigue, Reports fever, Reports poor appetite, Reports weakness Eyes: denies blurred vision, denies pain Ears: deny: decreased hearing, ear discharge, earache, tinnitus Ears, nose, mouth and throat: Denies headache, Denies sore throat Cardiovascular: Reports chest pain, Reports shortness of breath Respiratory: Reports cough with sputum, Reports dyspnea Gastrointestinal: Denies abdominal pain, Denies diarrhea, Denies nausea, Denies vomiting Genitourinary: Denies dysuria, Denies hematuria Menstruation: Reports postmenopausal Musculoskeletal: Reports muscle cramps Integumentary: Denies pruritus, Denies rash Neurological: Reports as per HPI, Reports memory loss, Reports weakness (Mild intermittent right-sided weakness with exertion) Psychiatric: Reports difficulty concentrating, Reports memory loss Endocrine: Reports fatigue Hematologic/Lymphatic: Reports as per HPI, Reports thrombophilia Past Medical History Past Medical History: COPD, CVA/TIA, Deep Vein Thrombosis (DVT), Hyperlipidemia, Renal Disease, Seizure Disorder Additional Past Medical History / Comment(s): 2017 cva right side weakness and slow responses at times, short term memory impairment s/p stroke. osteoporosis, low BP, glaucoma, stage 3 chronic kidney disease, chronic sinusitis, left hand fracture s/p fall, stomach ulcers, syncope, dehydration, epilepsy over 25 years ago from last seizures, small hole in heart, 3 small brain aneurysms History of Any Multi-Drug Resistant Organisms: None Reported Past Surgical History: Adenoidectomy, Hysterectomy, Tonsillectomy Additional Past Surgical History / Comment(s): left hand surgey, Past Anesthesia/Blood Transfusion Reactions: No Reported Reaction Past Psychological History: No Psychological Hx Reported Smoking Status: Current every day smoker Past Alcohol Use History: None Reported Past Drug Use History: None Reported - Past Family History Mother Family Medical History: No Reported History Brother(s) Family Medical History: Cancer Additional Family Medical History / Comment(s): Lung CA, TB Medications and Allergies Home Medications Medication Instructions Recorded Confirmed Type Aspirin 81 mg PO DAILY 09/09/21 07/25/24 History Atorvastatin [Lipitor] 40 mg PO DAILY 09/09/21 07/25/24 History Clopidogrel [Plavix] 75 mg PO DAILY 09/09/21 07/25/24 History Latanoprost/Pf [Latanoprost 0.005% 1 drop BOTH EYES HS 09/09/21 07/25/24 History Eye Drop] Midodrine HCl [ProAmantine] 2.5 mg PO DAILY 09/09/21 07/25/24 History Calcium Carbonate/Vitamin D3 2 tab PO DAILY 07/25/24 07/25/24 History [Calcium 600 mg-Vit D3 5 mcg (200 unit)] Ubidecarenone [Coenzyme Q10] 200 mg PO DAILY 07/25/24 07/25/24 History Allergies Allergy/AdvReac Type Severity Reaction Status Date / Time Penicillins Allergy throat Verified 07/25/24 09:51 swelling Physical Exam Vitals: Vital Signs Temp Pulse Pulse Resp BP Pulse Ox 07/27/24 17:22 98.0 F 102 H 20 123/69 96 07/27/24 15:45 96 07/27/24 15:34 92 07/27/24 11:51 92 07/27/24 11:37 88 99 07/27/24 07:54 98 F 93 20 118/66 98 07/27/24 01:14 98.4 F 91 17 109/62 98 07/26/24 20:36 98.5 F 111 H 107/53 98 07/26/24 20:21 96 07/26/24 20:01 95 07/26/24 20:00 95 105 H 97/53 07/26/24 19:49 92 Intake and Output 07/27/24 07/27/24 07/27/24 06:59 14:59 22:59 Intake Total 150 Balance 150 Intake: Oral 150 Other: # Voids 1 2 - Constitutional General appearance: no acute distress (On O2) - EENT Eyes: EOMI, PERRLA ENT: hearing grossly normal, normal oropharynx - Neck Neck: no lymphadenopathy Thyroid: bilateral: normal size - Respiratory Respiratory: right: diminished (Significantly diminished air entry lower one third right lung), left: rales - Cardiovascular Rhythm: regular Heart sounds: normal: S1, S2 - Gastrointestinal General gastrointestinal: normal bowel sounds, soft - Integumentary Integumentary: normal - Neurologic Neurologic: CNII-XII intact - Musculoskeletal Musculoskeletal: generalized weakness, strength equal bilaterally - Psychiatric Appears mildly agitated and in Psychiatric: A&O x's 3 Results CBC & Chem 7: 07/26/24 05:55 07/27/24 03:25 Labs: Abnormal Lab Results - Last 24 Hours (Table) 07/26/24 07/26/24 07/27/24 Range/Units 11:32 19:22 05:59 POC Glucose (mg/dL) 131 H 146 H (70-110) mg/dL Procalcitonin 2.34 H (0.02-0.50) ng/mL 07/27/24 07/27/24 Range/Units 11:54 17:19 POC Glucose (mg/dL) 194 H 152 H (70-110) mg/dL Procalcitonin (0.02-0.50) ng/mL Microbiology - Last 24 Hours (Table) 07/26/24 16:01 Gram Stain - Preliminary Sputum 07/25/24 15:00 Blood Culture - Preliminary Blood Chest x-ray: report reviewed CT scan - chest: report reviewed Venous US: report reviewed Assessment and Plan (1) Deep vein thrombosis (DVT) of popliteal vein of left lower extremity Narrative/Plan: The patient initially had a CT angiogram done because of her respiratory complaints and elevated D-dimer. This was negative for PE as detailed. It is not clear to me as to why the Dopplers were done, whether due to the elevated D-dimer, for complaints of leg cramps, or her prior history of DVT. Per report shows a left popliteal DVT. As noted in the HPI, unfortunately, it does not comment on whether this is chronic or acute appearing, or whether it is occlusive or nonocclusive, clearly. I am assuming that it is nonocclusive, as the report goes on to mention flow in that vessel. -This situation, it is possible that this represents an incidental, old chronic thrombus. If you are able to definitely confirm that, then the patient would require no intervention other than continuation of aspirin, and DVT prophylaxis during this admission. However I could not find any prior studies to compare, either in this EMR, or at [facility]. The patient herself was unable to furnish specific details about her previous event which according to her was several years ago. -Since at this time, it cannot be defined if this clot is old versus new, and the patient does have reasonable provoking risk factors in terms of recent influenza, and ongoing major pneumonia, it is probably reasonable, based on my e stimation of risk versus benefit to start her on anticoagulation currently. We will subsequently follow-up with her daughter and try to get more details, including previous reports for comparison. I will also consult vascular surgery to review the studies and repeat a Doppler if required, to try to define the nature of this clot better if possible. -If down the line it can be confirmed that this is an old clot, and the patient can be taken off full dose anticoagulation and switched back to aspirin. If a new clot is confirmed, or cannot be ruled out, then I would recommend full dose anticoagulation for 3 months for provoked thrombus. In that situation a hypercoagulable workup would also need to be considered as an outpatient for a history of recurrent thrombus Current Visit: Yes Status: Acute Code(s): I82.432 - ACUTE EMBOLISM AND THROMBOSIS OF LEFT POPLITEAL VEIN SNOMED Code(s): 541418879 Plan: Defer to the admitting service and other consultants for management of her presenting complaint, and other medical problems
[2024-07-27 20:42] LABS: Glucose,Whole Blood 166 mg/dL (70-110)
[2024-07-27] MEDS: ENOXAPARIN 60 MG/0.6 ML SYRINGE SQ SCH (21:36)
--- NOTE | 2024-07-28 | PN ---
PROGRESS NOTE DATE OF SERVICE: 07/27/2024 SUBJECTIVE: This is a 74-year-old woman admitted with fever, COPD acute exacerbation as well as bilateral pneumonia, is being closely monitored. The patient is on broad-spectrum IV antibiotics. The venous Doppler was done, which showed positive DVT in the left leg possibly. The patient is being closely monitored. Multiple consultants are following the patient closely. Cultures are negative so far. PAST MEDICAL HISTORY: Reviewed. REVIEW OF SYSTEMS: Fourteen-point review of systems is negative except as mentioned earlier. CURRENT MEDICATIONS: Reviewed. PHYSICAL EXAMINATION: VITAL SIGNS: Pulse 88, blood pressure 118/64, respirations 22. CHEST: A few scattered rhonchi and crackles. ABDOMEN: Soft. NERVOUS SYSTEM: Nonfocal. LABORATORY DATA: WBC 13.23, rest of the labs are noted. Procalcitonin is 2.34. ASSESSMENT: 1. Chronic obstructive pulmonary disease acute exacerbation with bilateral pneumonia, right more than the left, with possibly gram-negative with sepsis present on admission. 2. Rule out right basal lung mass lesion. 3. History of recent flu. 4. Possible left popliteal vein deep venous thrombosis. 5. History of deep venous thrombosis. 6. Increased WBC. 7. Hyperlipidemia. 8. History of seizure disorder. 9. Multiple complex medical issues. RECOMMENDATIONS AND DISCUSSION: I recommend to continue current management and continue symptomatic treatment. Continue with empiric antibiotics. The patient is on cefepime. Follow the cultures. I would also recommend Hematology/Oncology consultation for popliteal DVT, otherwise repeat labs will be ordered. Guarded prognosis. Continue the rest of medications. Further recommendations to follow. Discussed with the family at length. MMODL / IJN: [id number] /
[2024-07-28 04:10] LABS: ALT 25 U/L (4-34); AST 21 U/L (14-36); African American GFR (CKD) 74 (>60 ml/min/1.73 sqM); Albumin 2.8 g/dL (3.5-5.0); Albumin/Globulin Ratio 1.2; Alkaline Phosphatase 89 U/L (38-126); Anion Gap 7 mmol/L; Blood Urea Nitrogen 32 mg/dL (7-17); Calcium 7.8 mg/dL (8.4-10.2); Carbon Dioxide 19 mmol/L (22-30); Chloride 115 mmol/L (98-107); Globulin 2.3 g/dL; Glucose 158 mg/dL (74-99); Non-African American GFR(CKD) 65 (>60 ml/min/1.73 sqM); Potassium 3.5 mmol/L (3.5-5.1); Sodium 141 mmol/L (137-145); Total Bilirubin 0.6 mg/dL (0.2-1.3); Total Protein 5.1 g/dL (6.3-8.2)
[2024-07-28] MEDS: VANCOMYCIN 1,250 MG in SODIUM CHLORIDE 0.9% 250 ML IVPB SCH (06:09)
[2024-07-28 06:18] LABS: Glucose,Whole Blood 148 mg/dL (70-110)
[2024-07-28 08:58] LABS: Acanthocytes 2+ (None Seen); Basophils # (A) 0.04 X 10*3/uL (0.00-0.10); Basophils % (A) 0.3 %; Eosinophils # (A) 0 X 10*3/uL (0.04-0.35); Eosinophils % (A) 0 %; HCT 30.3 % (37.2-46.3); HGB 9.6 g/dL (12.0-15.0); Lymphocytes # (A) 0.65 X 10*3/uL (0.90-5.00); Lymphocytes % (A) 4.1 %; MCH 30.9 pg (27.0-32.0); MCHC 31.7 g/dL (32.0-37.0); MCV 97.4 FL (80.0-97.0); Mean Platelet Volume 10.9 FL (9.5-12.2); Monocytes # (A) 0.42 X 10*3/uL (0.20-1.00); Monocytes % (A) 2.6 %; NRBC Per 100 WBC 0 X 10*3/uL (0.00-0.01); Neutrophils # (A) 14.62 X 10*3/uL (1.80-7.70); Neutrophils % (A) 91.9 %; Platelet Count 215 X 10*3/uL (140-440); RBC 3.11 X 10*6/uL (4.10-5.20); RDW 14.3 % (11.5-14.5); WBC 15.91 X 10*3/uL (4.50-10.00)
--- NOTE | 2024-07-28 10:18 | CA ---
Transthoracic Echo Report Name: Virginia Johnson Age: 74 Gender: F : 1950 Exam Date: 07/25/2024 14:14 Exam Location: [place] [facility] Ht (in): 63 Wt (lb): 140 Ordering Physician: Pilar Newton MD Attending/Referring Phys: Scutcher Tender Chelo Duran RDCS Procedure CPT: Indications: stroke Cardiac Hx: Technical Quality: Good Contrast 1: Agitated Saline Total Dose (mL): 9 Contrast 2: Total Dose (mL): MEASUREMENTS (Male / Female) Normal Values 2D ECHO LV Diastolic Diameter PLAX 3.0 cm 4.2 - 5.9 / 3.9 - 5.3 cm LV Systolic Diameter PLAX 2.4 cm IVS Diastolic Thickness 1.2 cm 0.6 - 1.0 / 0.6 - 0.9 cm LVPW Diastolic Thickness 1.0 cm 0.6 - 1.0 / 0.6 - 0.9 cm LV Relative Wall Thickness 0.7 RV Internal Dim ED PLAX 2.8 cm LA Systolic Diameter LX 3.3 cm 3.0 - 4.0 / 2.7 - 3.8 cm LV Diastolic Volume MOD 4C 58.3 cm??? LV Systolic Volume MOD 4C 27.9 cm??? LV Ejection Fraction MOD 4C 52.1 % LV Cardiac Index MOD 4C 1703.4 cm???/min???m??? LV Diastolic Length 4C 7.2 cm LV Systolic Length 4C 6.0 cm LV Diastolic Volume MOD 2C 38.2 cm??? LV Systolic Volume MOD 2C 16.3 cm??? LV Ejection Fraction MOD 2C 57.4 % LV Cardiac Index MOD 2C 1231.7 cm???/min???m??? LV Diastolic Length 2C 7.3 cm LV Systolic Length 2C 6.1 cm M-MODE Aortic Root Diameter MM 2.7 cm DOPPLER AV Peak Velocity 109.4 cm/s AV Peak Gradient 4.8 mmHg Mitral E Point Velocity 61.5 cm/s Mitral A Point Velocity 63.5 cm/s Mitral E to A Ratio 1.0 MV Deceleration Time 192.9 ms MV E' Velocity 7.9 cm/s Mitral E to MV E' Ratio 7.8 FINDINGS Left Ventricle Left ventricular ejection fraction is estimated at 55-60 %. Small left ventricular cavity. Mildly increased septal wall thickness. Mildly increased posterior wall thickness. Normal left ventricular wall motion. Right Ventricle Normal right ventricular size. Unable to estimate the right ventricular systolic pressure. Right Atrium Normal right atrial size. No right atrial thrombus or mass seen. Negative agitated saline bubble study for right to left shunt. Left Atrium Normal left atrial size. No left atrial thrombus or mass present. Mitral Valve Structurally normal mitral valve. No mitral stenosis, regurgitation or prolapse. Aortic Valve Trileaflet aortic valve. No aortic valve stenosis or regurgitation. Tricuspid Valve Structurally normal tricuspid valve. Mild tricuspid regurgitation. Pulmonic Valve Structurally normal pulmonic valve. No pulmonic regurgitation. Pericardium No pericardial effusion. Aorta Normal size aortic root and proximal ascending aorta. CONCLUSIONS Indication: CVA shortness of breath weakness fever Hyperdynamic circulation Left ventricular ejection fraction greater than 60% No intracardiac masses No evidence for [id number] shunt at the interatrial level Previewed by: Dr. Robe Gross MD (Electronically Signed) Final Date: 28 July 2024 10:17
[2024-07-28 12:14] LABS: Glucose,Whole Blood 185 mg/dL (70-110)
--- NOTE | 2024-07-28 12:15 | P.GSCN ---
History of Present Illness Consult date: 07/28/24 Reason for Consult: DVT left lower extremity old versus new. Please evaluate to define if acute or chronic Requesting physician: Edwin Starks History of present illness: This is a pleasant 74-year-old female who presented to the emergency department with complaints of shortness of breath and not feeling well. Patient states she was recently diagnosed with influenza. States she was starting to feel better after taking her Tamiflu but then was feeling worse again overall started having nausea and vomiting and increased weakness. Patient is admitted with pneumonia. She has a past medical history including COPD, daily smoker, hypertension, previous history of CVA with some right-sided weakness and short-term memory deficits, chronic kidney disease and remote history of left lower extremity DVT and pulmonary embolism over 20 years ago. Apparently patient was complaining of some left lower extremity discomfort and cramping in her leg yesterday when she got up to walk. They ordered a venous duplex that reports a left lower extremity popliteal deep vein thrombosis. Hematology was consulted for lower extremity DVT for anticoagulation recommendations. Family Sociologist made consulted vascular surgery to evaluate whether DVT is acute or chronic. Patient had not been anticoagulation, she was started on Lovenox 60 mg every 12 hours. Patient currently denies any shortness of breath or chest pain. She is on 2 L of oxygen per nasal cannula. Denies any pain in her left lower extremity or swelling. Review of Systems A 14 point review systems was completed all pertinent positives and negatives as stated in the HPI. Past Medical History Past Medical History: COPD, CVA/TIA, Deep Vein Thrombosis (DVT), Hyperlipidemia, Renal Disease, Seizure Disorder Additional Past Medical History / Comment(s): 2017 cva right side weakness and slow responses at times, short term memory impairment s/p stroke. osteoporosis, low BP, glaucoma, stage 3 chronic kidney disease, chronic sinusitis, left hand fracture s/p fall, stomach ulcers, syncope, dehydration, epilepsy over 25 years ago from last seizures, small hole in heart, 3 small brain aneurysms History of Any Multi-Drug Resistant Organisms: None Reported Past Surgical History: Adenoidectomy, Hysterectomy, Tonsillectomy Additional Past Surgical History / Comment(s): left hand surgey, Past Anesthesia/Blood Transfusion Reactions: No Reported Reaction Past Psychological History: No Psychological Hx Reported Smoking Status: Current every day smoker Past Alcohol Use History: None Reported Past Drug Use History: None Reported - Past Family History Mother Family Medical History: No Reported History Brother(s) Family Medical History: Cancer Additional Family Medical History / Comment(s): Lung CA, TB Medications and Allergies Home Medications Medication Instructions Recorded Confirmed Type Aspirin 81 mg PO DAILY 09/09/21 07/25/24 History Atorvastatin [Lipitor] 40 mg PO DAILY 09/09/21 07/25/24 History Clopidogrel [Plavix] 75 mg PO DAILY 09/09/21 07/25/24 History Latanoprost/Pf [Latanoprost 0.005% 1 drop BOTH EYES HS 09/09/21 07/25/24 History Eye Drop] Midodrine HCl [ProAmantine] 2.5 mg PO DAILY 09/09/21 07/25/24 History Calcium Carbonate/Vitamin D3 2 tab PO DAILY 07/25/24 07/25/24 History [Calcium 600 mg-Vit D3 5 mcg (200 unit)] Ubidecarenone [Coenzyme Q10] 200 mg PO DAILY 07/25/24 07/25/24 History Allergies Allergy/AdvReac Type Severity Reaction Status Date / Time Penicillins Allergy throat Verified 07/25/24 09:51 swelling Surgical - Exam Vital Signs Temp Pulse Resp BP Pulse Ox 98 F 99 20 118/75 90 L 07/25/24 09:30 07/25/24 09:30 07/25/24 09:30 07/25/24 09:30 07/25/24 09:30 General appearance: The patient is alert, oriented, appears in no acute distress. HET: Head is normocephalic and atraumatic. Pupils are equal and reactive. Neck: Supple. Heart: Regular. Lungs: Equal expansion, normal respiratory effort. Abdomen: Soft, nontender, nondistended. Extremities: Normal skin color and turgor. Left lower extremity without any swelling. Palpable DP and PT pulse. Neurological: No focal deficits. Strength and sensation are grossly intact. Results - Labs 07/28/24 03:09 07/28/24 03:09 Abnormal Lab Results - Last 24 Hours (Table) 07/26/24 07/27/24 07/27/24 Range/Units 11:32 11:54 17:19 Chloride (98-107) mmol/L Carbon Dioxide (22-30) mmol/L BUN (7-17) mg/dL Glucose (74-99) mg/dL POC Glucose (mg/dL) 194 H 152 H (70-110) mg/dL Calcium (8.4-10.2) mg/dL Total Protein (6.3-8.2) g/dL Albumin (3.5-5.0) g/dL Procalcitonin 2.34 H (0.02-0.50) ng/mL 07/27/24 07/28/24 07/28/24 Range/Units 20:40 03:09 06:13 Chloride 115 H (98-107) mmol/L Carbon Dioxide 19 L (22-30) mmol/L BUN 32 H (7-17) mg/dL Glucose 158 H (74-99) mg/dL POC Glucose (mg/dL) 166 H 148 H (70-110) mg/dL Calcium 7.8 L (8.4-10.2) mg/dL Total Protein 5.1 L (6.3-8.2) g/dL Albumin 2.8 L (3.5-5.0) g/dL Procalcitonin (0.02-0.50) ng/mL Microbiology - Last 24 Hours (Table) 07/25/24 15:00 Blood Culture - Preliminary Blood 07/26/24 16:01 Gram Stain - Preliminary Sputum Diabetes panel 07/28/24 Range/Units 03:09 Sodium 141 (137-145) mmol/L Potassium 3.5 (3.5-5.1) mmol/L Chloride 115 H (98-107) mmol/L Carbon Dioxide 19 L (22-30) mmol/L BUN 32 H (7-17) mg/dL Creatinine 0.89 (0.52-1.04) mg/dL Glucose 158 H (74-99) mg/dL Calcium 7.8 L (8.4-10.2) mg/dL AST 21 (14-36) U/L ALT 25 (4-34) U/L Alkaline Phosphatase 89 (38-126) U/L Total Protein 5.1 L (6.3-8.2) g/dL Albumin 2.8 L (3.5-5.0) g/dL Calcium panel 07/28/24 Range/Units 03:09 Calcium 7.8 L (8.4-10.2) mg/dL Albumin 2.8 L (3.5-5.0) g/dL Pituitary panel 07/28/24 Range/Units 03:09 Sodium 141 (137-145) mmol/L Potassium 3.5 (3.5-5.1) mmol/L Chloride 115 H (98-107) mmol/L Carbon Dioxide 19 L (22-30) mmol/L BUN 32 H (7-17) mg/dL Creatinine 0.89 (0.52-1.04) mg/dL Glucose 158 H (74-99) mg/dL Calcium 7.8 L (8.4-10.2) mg/dL Adrenal panel 07/28/24 Range/Units 03:09 Sodium 141 (137-145) mmol/L Potassium 3.5 (3.5-5.1) mmol/L Chloride 115 H (98-107) mmol/L Carbon Dioxide 19 L (22-30) mmol/L BUN 32 H (7-17) mg/dL Creatinine 0.89 (0.52-1.04) mg/dL Glucose 158 H (74-99) mg/dL Calcium 7.8 L (8.4-10.2) mg/dL Total Bilirubin 0.6 (0.2-1.3) mg/dL AST 21 (14-36) U/L ALT 25 (4-34) U/L Alkaline Phosphatase 89 (38-126) U/L Total Protein 5.1 L (6.3-8.2) g/dL Albumin 2.8 L (3.5-5.0) g/dL - Imaging Comments: Ultrasound venous duplex bilateral lower extremities reports deep venous thrombosis within the left popliteal vein. Right lower extremity ultrasound negative for deep vein thrombosis. Chest CT angiogram reports no acute pulmonary embolism. Consolidation or mass within the posterior medial right lung base. Correlate with symptoms. Follow- up to clearing is recommended. Scattered infiltrates in the left lower lung field. Mass and infectious etiologies within the differential. Assessment and Plan Assessment: 1. Left lower extremity popliteal deep vein thrombosis 2. Pneumonia 3. Smoker 4. Remote history of pulmonary embolism in left lower extremity DVT greater than 20 years ago Plan: Venous duplex reviewed with Dr. Hernandez from radiology and appears to be acute left popliteal deep vein thrombosis. Continue anticoagulation per recommendations from hematology. There is no indication for any vascular surgical intervention. Thank you for this consultation, we will sign off at this time. The impression and plan of care has been dictated as directed. Dr. Copeland I performed a history and examination of this patient, discussed the same with the dictator. I agree with the dictator's note ,documented as a scribe. Any additional findings or plans will be noted.
--- NOTE | 2024-07-28 12:20 | P.PN ---
Subjective Progress Note Date: 07/28/24 Principal diagnosis: Reason for follow-up is pneumonia Patient is a 74-year-old female with a past medical history significant for COPD, CVA/TIA, Deep Vein Thrombosis (DVT), Hyperlipidemia, Renal Disease, Seizure Disorder presenting to the hospital for evaluation of not feeling well in this patient who was recently diagnosed with influenza A and has been treated with the Tamiflu presented to hospital with weakness including shortness of breath and cough has been diagnosed with pneumonia. On today's evaluation that is 07/28/2024, patient has been afebrile, patient is breathing comfortably and is currently on 2 L nasal oxygen, patient denies having any chest pain and cough has decreased in intensity, patient denies nausea vomiting or diarrhea and no abdominal pain. Patient white count is 15.91, creatinine 0.89 blood and sputum cultures currently pending Objective - Vital Signs Vital signs: Vital Signs Temp 97.8 F 07/28/24 07:30 Pulse 71 07/28/24 07:30 Resp 17 07/28/24 07:30 BP 145/74 07/28/24 07:30 Pulse Ox 96 07/28/24 07:30 FiO2 32 07/26/24 16:04 Intake & Output 07/27/24 07/28/24 07/28/24 18:59 06:59 18:59 Other: Voiding Method Toilet # Voids 2 - Exam GENERAL DESCRIPTION: An elderly female lying in bed in no distress RESPIRATORY SYSTEM: Unlabored breathing , decreased breath sounds at bases HEART: S1 S2 regular rate and rhythm , ABDOMEN: Soft , no tenderness EXTREMITIES: No edema feet - Labs CBC & Chem 7: 07/28/24 03:09 07/28/24 03:09 Labs: Abnormal Lab Results - Last 24 Hours (Table) 07/26/24 07/27/24 07/27/24 Range/Units 11:32 11:54 17:19 WBC (4.50-10.00) X 10*3/uL RBC (4.10-5.20) X 10*6/uL Hgb (12.0-15.0) g/dL Hct (37.2-46.3) % MCV (80.0-97.0) FL MCHC (32.0-37.0) g/dL Immature Gran # (0.00-0.04) X 10*3/uL Neutrophils # (1.80-7.70) X 10*3/uL Lymphocytes # (0.90-5.00) X 10*3/uL Eosinophils # (0.04-0.35) X 10*3/uL Acanthocytes (Spur) (None Seen) Chloride (98-107) mmol/L Carbon Dioxide (22-30) mmol/L BUN (7-17) mg/dL Glucose (74-99) mg/dL POC Glucose (mg/dL) 194 H 152 H (70-110) mg/dL Calcium (8.4-10.2) mg/dL Total Protein (6.3-8.2) g/dL Albumin (3.5-5.0) g/dL Procalcitonin 2.34 H (0.02-0.50) ng/mL 07/27/24 07/28/24 07/28/24 Range/Units 20:40 03:09 03:09 WBC 15.91 H (4.50-10.00) X 10*3/uL RBC 3.11 L (4.10-5.20) X 10*6/uL Hgb 9.6 L (12.0-15.0) g/dL Hct 30.3 L (37.2-46.3) % MCV 97.4 H (80.0-97.0) FL MCHC 31.7 L (32.0-37.0) g/dL Immature Gran # 0.18 H (0.00-0.04) X 10*3/uL Neutrophils # 14.62 H (1.80-7.70) X 10*3/uL Lymphocytes # 0.65 L (0.90-5.00) X 10*3/uL Eosinophils # 0 L (0.04-0.35) X 10*3/uL Acanthocytes (Spur) 2+ A (None Seen) Chloride 115 H (98-107) mmol/L Carbon Dioxide 19 L (22-30) mmol/L BUN 32 H (7-17) mg/dL Glucose 158 H (74-99) mg/dL POC Glucose (mg/dL) 166 H (70-110) mg/dL Calcium 7.8 L (8.4-10.2) mg/dL Total Protein 5.1 L (6.3-8.2) g/dL Albumin 2.8 L (3.5-5.0) g/dL Procalcitonin (0.02-0.50) ng/mL 07/28/24 Range/Units 06:13 WBC (4.50-10.00) X 10*3/uL RBC (4.10-5.20) X 10*6/uL Hgb (12.0-15.0) g/dL Hct (37.2-46.3) % MCV (80.0-97.0) FL MCHC (32.0-37.0) g/dL Immature Gran # (0.00-0.04) X 10*3/uL Neutrophils # (1.80-7.70) X 10*3/uL Lymphocytes # (0.90-5.00) X 10*3/uL Eosinophils # (0.04-0.35) X 10*3/uL Acanthocytes (Spur) (None Seen) Chloride (98-107) mmol/L Carbon Dioxide (22-30) mmol/L BUN (7-17) mg/dL Glucose (74-99) mg/dL POC Glucose (mg/dL) 148 H (70-110) mg/dL Calcium (8.4-10.2) mg/dL Total Protein (6.3-8.2) g/dL Albumin (3.5-5.0) g/dL Procalcitonin (0.02-0.50) ng/mL Microbiology - Last 24 Hours (Table) 07/25/24 15:00 Blood Culture - Preliminary Blood 07/26/24 16:01 Gram Stain - Preliminary Sputum Assessment and Plan (1) Sepsis Current Visit: Yes Status: Acute Code(s): A41.9 - SEPSIS, UNSPECIFIED OR GANISM SNOMED Code(s): 86290903 (2) Penicillin allergy Current Visit: Yes Status: Acute Code(s): Z88.0 - ALLERGY STATUS TO PENICILLIN SNOMED Code(s): 19066466 (3) Leukocytosis Current Visit: Yes Status: Acute Code(s): D72.829 - ELEVATED WHITE BLOOD KATINA L COUNT, UNSPECIFIED SNOMED Code(s): 284952706 (4) Pneumonia Current Visit: Yes Status: Acute Code(s): J18.9 - PNEUMONIA, UNSPECIFIED ORGANISM SNOMED Code(s): 392282690 Plan: 1patient presented to hospital with generalized weakness increasing shortness of breath patient also have a cough productive of sputum patient did have tachycardia with a heart rate of 99 elevated white count meeting criteria for SIRS source is likely pneumonia in this patient who recently did have influenza will need to cover for resistant gram-positive as well as gram-negative pathogen 2-blood sputum culture has been pending 3-patient did have a CT of the chest with significant pneumonia right side, there was no PE she did have a DVT on the ultrasound being followed by vascular and hematology 4-patient current being treated with cefepime and vancomycin while waiting for the culture to finalize and monitor clinical course closely Dictation was produced using [employer] dictation software. please excuse any grammatical, word or spelling errors. Time with Patient: Less than 30
--- NOTE | 2024-07-28 15:33 | P.PN ---
Subjective Progress Note Date: 07/28/24 This is a 74-year-old female patient, presenting with symptoms of weakness, lethargy, cough, chest tightness, congestion, shortness of breath and wheeze. Her symptoms started approximately a week ago. At that time, the patient went to an urgent care and she was diagnosed having influenza infection. She was given Tamiflu. She did improve and her condition subsequently compensated. She was producing colored sputum. She was also getting progressively more weak and debilitated and for that reason she ended up coming into the hospital. In the hospital, she was given a combination of Rocephin and Zithromax. Repeat viral screen came back negative. The white cell count was at 13 with a hemoglobin of 11.1 and a platelet count of 158. D-dimer was quite elevated at 28. Based on that, the patient was given a CT angiogram that showed no evidence of any pulmonary embolism. However, there was an extensive consolidation in the right lower lobe posterior/superior segment in addition to some scattered infiltration in the left lung specially along the lines of the lingula. She is currently on oxygen at 3 L and her current pulse ox is 97%. Hemodynamically stable. She is a former smoker. She is known to have COPD. She also has a remote history of DVT and pulmonary embolism more than 20 years ago and the patient is currently off anticoagulants. She has history of hypertension, previous history of CVA back in 2017 with some right-sided weakness and impairment in the short-term memory following the stroke. She has osteoporosis, chronic stage III kidney disease, glaucoma, and previous history of MATERIALS MANAGEMENT MANAGER aneurysms, nonsurgical. On today's evaluation of 07/27/2024, the patient remains on broad-spectrum antibiotics. She is on a combination of cefepime Zithromax and vancomycin. Sputum and blood culture still pending for now. Clinically, feeling better, more awake and alert compared to yesterday. Cough and congestion somewhat subsided compared to yesterday. Hemodynamically stable remains on 3 L of oxygen by nasal cannula with a pulse ox of 98%. Procalcitonin level is elevated s uggestive of underlying bacterial infection. Her procalcitonin level was at 2.35. Legionella urine antigen was negative. Viral screen was negative. The patient is seen today July 28, 2024 in follow-up on the regular medical floor. She is currently resting in bed. Maintaining O2 saturations in the 90s on 2 L/min per nasal cannula. Blood and sputum cultures revealed no growth. White count 15.9. Hemoglobin 9.6. Platelets 258. Sodium 141. Potassium 3.5. Bicarb 19. BUN 32. Creatinine 0.89. Glucose 158. She remains on DuoNeb inhalations, Pulmicort and Perforomist inhalations, Solu-Medrol. Remains on vancomycin and cefepime. NicoDerm patch in place. Lovenox for DVT prophylaxis. Objective - Vital Signs Vital signs: Vital Signs Temp 97.8 F 07/28/24 07:30 Pulse 92 07/28/24 15:20 Resp 17 07/28/24 07:30 BP 145/74 07/28/24 07:30 Pulse Ox 96 07/28/24 07:30 FiO2 32 07/26/24 16:04 Intake & Output 07/27/24 07/28/24 07/28/24 18:59 06:59 18:59 Other: Voiding Method Toilet # Voids 2 - Exam GENERAL EXAM: Alert, weak, 74-year-old female, on 2 L nasal cannula, comfortable in no apparent distress. HEAD: Normocephalic. EYES: Normal reaction of pupils, equal size. NOSE: Clear with pink turbinates. THROAT: No erythema or exudates. NECK: No masses, no JVD. CHEST: No chest wall deformity. LUNGS: Equal air entry with no crackles, wheeze, rhonchi or dullness. CVS: S1 and S2 normal with no audible murmur, regular rhythm. ABDOMEN: No hepatosplenomegaly, normal bowel sounds, no guarding or rigidity. SPINE: No scoliosis or deformity SKIN: No rashes CENTRAL NERVOUS SYSTEM: No focal deficits, tone is normal in all 4 extremities. EXTREMITIES: There is no peripheral edema. No clubbing, no cyanosis. Peripheral pulses are intact. - Labs CBC & Chem 7: 07/28/24 03:09 07/28/24 03:09 Labs: Abnormal Lab Results - Last 24 Hours (Table) 07/27/24 07/27/24 07/28/24 Range/Units 17:19 20:40 03:09 WBC (4.50-10.00) X 10*3/uL RBC (4.10-5.20) X 10*6/uL Hgb (12.0-15.0) g/dL Hct (37.2-46.3) % MCV (80.0-97.0) FL MCHC (32.0-37.0) g/dL Immature Gran # (0.00-0.04) X 10*3/uL Neutrophils # (1.80-7.70) X 10*3/uL Lymphocytes # (0.90-5.00) X 10*3/uL Eosinophils # (0.04-0.35) X 10*3/uL Acanthocytes (Spur) (None Seen) Chloride 115 H (98-107) mmol/L Carbon Dioxide 19 L (22-30) mmol/L BUN 32 H (7-17) mg/dL Glucose 158 H (74-99) mg/dL POC Glucose (mg/dL) 152 H 166 H (70-110) mg/dL Calcium 7.8 L (8.4-10.2) mg/dL Total Protein 5.1 L (6.3-8.2) g/dL Albumin 2.8 L (3.5-5.0) g/dL 07/28/24 07/28/24 07/28/24 Range/Units 03:09 06:13 12:13 WBC 15.91 H (4.50-10.00) X 10*3/uL RBC 3.11 L (4.10-5.20) X 10*6/uL Hgb 9.6 L (12.0-15.0) g/dL Hct 30.3 L (37.2-46.3) % MCV 97.4 H (80.0-97.0) FL MCHC 31.7 L (32.0-37.0) g/dL Immature Gran # 0.18 H (0.00-0.04) X 10*3/uL Neutrophils # 14.62 H (1.80-7.70) X 10*3/uL Lymphocytes # 0.65 L (0.90-5.00) X 10*3/uL Eosinophils # 0 L (0.04-0.35) X 10*3/uL Acanthocytes (Spur) 2+ A (None Seen) Chloride (98-107) mmol/L Carbon Dioxide (22-30) mmol/L BUN (7-17) mg/dL Glucose (74-99) mg/dL POC Glucose (mg/dL) 148 H 185 H (70-110) mg/dL Calcium (8.4-10.2) mg/dL Total Protein (6.3-8.2) g/dL Albumin (3.5-5.0) g/dL Microbiology - Last 24 Hours (Table) 07/26/24 16:01 Gram Stain - Preliminary Sputum Sputum Culture - Preliminary 07/25/24 15:00 Blood Culture - Preliminary Blood Assessment and Plan Assessment: Bilateral pneumonia following an acute viral infection, most likely secondary to bacterial superinfection. The patient had an influenza infection approximately a week ago and she was treated with Tamiflu. After some initial improvement, the patient's condition decompensated Acute hypoxic respiratory failure currently on 2 L of oxygen by nasal cannula Acute leukocytosis related to above Generalized weakness and lethargy secondary to pneumonia, rule out underlying sepsis COPD exacerbation secondary to above with secondary shortness of breath Remote history of DVT and pulmonary embolism, currently on no anticoagulants Chronic kidney disease, currently inactive and stable History of seizure disorder History of CVA back in 2017 with some residual memory deficits and right-sided weakness History of MATERIALS MANAGEMENT MANAGER aneurysm History of glaucoma Osteoporosis Plan: The patient was seen and evaluated Labs and medications reviewed Currently on oxygen at 2 L/min per nasal cannula Continued on DuoNeb inhalations Continued on Pulmicort and Perforomist inhalations Continued on Solu-Medrol NicoDerm patch in place Educated regarding smoking cessation Lovenox for DVT prophylaxis Protonix for GI prophylaxis Remains on vancomycin and cefepime Blood and sputum cultures pending We will continue to follow I have personally seen and examined the patient, performed the documentation and the assessment and plan as written. Number of minutes spent on the visit: 10 Dictation was produced using [employer] dictation software. Please excuse any grammatical, word or spelling errors.
[2024-07-28 16:41] LABS: Glucose,Whole Blood 180 mg/dL (70-110)
--- NOTE | 2024-07-28 19:19 | P.PN ---
Subjective Progress Note Date: 07/28/24 Pt resting comfortably in bedside chair. Denies SOB. Continues on heparin drip Objective - Vital Signs Vital signs: Vital Signs Temp 97.8 F 07/28/24 07:30 Pulse 92 07/28/24 11:12 Resp 17 07/28/24 07:30 BP 145/74 07/28/24 07:30 Pulse Ox 96 07/28/24 07:30 FiO2 32 07/26/24 16:04 Intake & Output 07/27/24 07/28/24 07/28/24 18:59 06:59 18:59 Other: Voiding Method Toilet # Voids 2 - Constitutional General appearance: Present: average body habitus, no acute distress - EENT Eyes: Present: anicteric sclerae, EOMI ENT: Present: hearing grossly normal - Respiratory Details: breathing is even and unlabored - Cardiovascular Details: skin warm and dry - Gastrointestinal General gastrointestinal: Present: soft. Absent: tenderness - Integumentary Integumentary: Absent: cyanotic, jaundiced - Psychiatric Psychiatric: Present: A&O x's 3 - Labs CBC & Chem 7: 07/28/24 03:09 07/28/24 03:09 Labs: Abnormal Lab Results - Last 24 Hours (Table) 07/27/24 07/27/24 07/27/24 Range/Units 11:54 17:19 20:40 WBC (4.50-10.00) X 10*3/uL RBC (4.10-5.20) X 10*6/uL Hgb (12.0-15.0) g/dL Hct (37.2-46.3) % MCV (80.0-97.0) FL MCHC (32.0-37.0) g/dL Immature Gran # (0.00-0.04) X 10*3/uL Neutrophils # (1.80-7.70) X 10*3/uL Lymphocytes # (0.90-5.00) X 10*3/uL Eosinophils # (0.04-0.35) X 10*3/uL Acanthocytes (Spur) (None Seen) Chloride (98-107) mmol/L Carbon Dioxide (22-30) mmol/L BUN (7-17) mg/dL Glucose (74-99) mg/dL POC Glucose (mg/dL) 194 H 152 H 166 H (70-110) mg/dL Calcium (8.4-10.2) mg/dL Total Protein (6.3-8.2) g/dL Albumin (3.5-5.0) g/dL 07/28/24 07/28/24 07/28/24 Range/Units 03:09 03:09 06:13 WBC 15.91 H (4.50-10.00) X 10*3/uL RBC 3.11 L (4.10-5.20) X 10*6/uL Hgb 9.6 L (12.0-15.0) g/dL Hct 30.3 L (37.2-46.3) % MCV 97.4 H (80.0-97.0) FL MCHC 31.7 L (32.0-37.0) g/dL Immature Gran # 0.18 H (0.00-0.04) X 10*3/uL Neutrophils # 14.62 H (1.80-7.70) X 10*3/uL Lymphocytes # 0.65 L (0.90-5.00) X 10*3/uL Eosinophils # 0 L (0.04-0.35) X 10*3/uL Acanthocytes (Spur) 2+ A (None Seen) Chloride 115 H (98-107) mmol/L Carbon Dioxide 19 L (22-30) mmol/L BUN 32 H (7-17) mg/dL Glucose 158 H (74-99) mg/dL POC Glucose (mg/dL) 148 H (70-110) mg/dL Calcium 7.8 L (8.4-10.2) mg/dL Total Protein 5.1 L (6.3-8.2) g/dL Albumin 2.8 L (3.5-5.0) g/dL Microbiology - Last 24 Hours (Table) 07/25/24 15:00 Blood Culture - Preliminary Blood Assessment and Plan (1) Deep vein thrombosis (DVT) of popliteal vein of left lower extremity Current Visit: Yes Status: Acute Code(s): I82.432 - ACUTE EMBOLISM AND THRO MBOSIS OF LEFT POPLITEAL VEIN SNOMED Code(s): 366715426 (2) Leukocytosis Current Visit: Yes Status: Acute Code(s): D72.829 - ELEVATED WHITE BLOOD CELL COUNT, UNSPECIFIED SNOMED Code(s): 542298082 (3) Pneumonia Current Visit: Yes Status: Acute Code(s): J18.9 - PNEUMONIA, UNSPECIFIED ORGANISM SNOMED Code(s): 383986431 Plan: LLE DVT: The patient initially had a CT angiogram done because of her respiratory complaints and elevated D-dimer. This was negative for PE as detailed. It is not clear to me as to why the Dopplers were done, whether due to the elevated D-dimer, for complaints of leg cramps, or her prior history of DVT. Per report shows a left popliteal DVT. As noted in the HPI, unfortunately, it does not comment on whether this is chronic or acute appearing, or whether it is occlusive or nonocclusive, clearly. I am assuming that it is nonocclusive, as the report goes on to mention flow in that vessel. -This situation, it is possible that this represents an incidental, old chronic thrombus. If you are able to definitely confirm that, then the patient would require no intervention other than continuation of aspirin, and DVT prophylaxis during this admission. However I could not find any prior studies to compare, either in this EMR, or at [facility]. The patient herself was unable to furnish specific details about her previous event which according to her was several years ago. -Since at this time, it cannot be defined if this clot is old versus new, and the patient does have reasonable provoking risk factors in terms of recent influenza, and ongoing major pneumonia, it is probably reasonable, based on my estimation of risk versus benefit to start her on anticoagulation currently. -We spoke with daughter today, who states she believes patient had BLE DVTs approx 15 years ago, and possible PE as well. Unsure how long she was anticoagulated for at that time or what drug was used -Will consult vascular surgery to review the studies and repeat a Doppler if required, to try to define the nature of this clot better if possible. -Upon review of vascular surgery note, they further reviewed case with radiology and this is felt to be an acute clot. In this case, we would recommend full dose anticoagulation for 3 months for provoked thrombus. Once no innervations or procedures are planned, pt can be transitioned to Eliquis or Xarelto -Due to history of recurrent thrombus, will schedule clinic f/u to obtain hypercoagulable workup
[2024-07-28 20:11] LABS: Glucose,Whole Blood 186 mg/dL (70-110)
--- NOTE | 2024-07-28 23:21 | PN ---
PROGRESS NOTE DATE OF SERVICE: 07/28/2024 SUBJECTIVE: This is a 74-year-old woman, who was admitted with COPD with acute exacerbation, bilateral pneumonia, who also had DVT of the popliteal vein. Multiple consultants are following the patient closely. Vascular Surgery has seen the patient, recommends anticoagulation. No chest pain. No palpitation. PHYSICAL EXAMINATION: VITAL SIGNS: Pulse is 92, blood pressure 145/75, respirations 17. CHEST: Clear to auscultation. CARDIOVASCULAR: S1 and S2. ABDOMEN: Soft. NERVOUS SYSTEM: Nonfocal. LABORATORY DATA: Reviewed. ASSESSMENT: 1. Chronic obstructive pulmonary disease with acute exacerbation with bilateral pneumonia, right more than the left, with possibly gram-negative with sepsis present on admission. 2. Rule out right basal lung mass lesion. 3. Left popliteal vein deep vein thrombosis, possibly acute per Vascular. 4. History of recent flu. 5. History of deep vein thrombosis. 6. Increased WBC. 7. Hyperlipidemia. 8. Seizure disorders. 9. Multiple complex medical issues. RECOMMENDATIONS: Recommended to continue with current management, continue with symptomatic treatment. Continue with the antibiotic. Continue with bronchodilators. Increase ambulation. Otherwise, the patient is on aspirin and Lovenox 60 subcu b.i.d. We will continue to monitor. Further recommendations to follow. Repeat labs will be ordered. MMODL / IJN: [id number] /
[2024-07-29 06:16] LABS: Glucose,Whole Blood 155 mg/dL (70-110)
[2024-07-29 08:40] LABS: HCT 30.9 % (37.2-46.3); HGB 9.7 g/dL (12.0-15.0); MCH 30.1 pg (27.0-32.0); MCHC 31.4 g/dL (32.0-37.0); Mean Platelet Volume 10.5 FL (9.5-12.2); NRBC Per 100 WBC 0 X 10*3/uL (0.00-0.01); Platelet Count 230 X 10*3/uL (140-440); RBC 3.22 X 10*6/uL (4.10-5.20); RDW 14.2 % (11.5-14.5); WBC 13.84 X 10*3/uL (4.50-10.00)
[2024-07-29 08:48] LABS: BUN/Creat Ratio 31.33 Ratio (12.00-20.00); Blood Urea Nitrogen 28.2 mg/dL (9.0-27.0); Carbon Dioxide 19.5 mmol/L (21.6-31.8); Chloride 115 mmol/L (96-109); Glucose 166 mg/dL (70-110); Potassium 3.9 mmol/L (3.5-5.5); Sodium 143 mmol/L (135-145)
[2024-07-29 08:49] LABS: Calcium 7.6 mg/dL (8.7-10.3)
[2024-07-29 11:16] LABS: Band Neutrophils % 5 %; Basophils # (M) 0 X 10*3/uL (0.00-0.10); Crenated RBC 2+ (None Seen); Eosinophils # (M) 0 X 10*3/uL (0.04-0.35); Lymphocytes # (M) 1.11 X 10*3/uL (0.90-5.00); Metamyelocytes % 3 % (0-0); Monocytes # (M) 0.83 X 10*3/uL (0.20-1.00); Myelocytes % 7 % (0-0); Neutrophils # (M) 10.52 X 10*3/uL (1.80-7.70); Neutrophils % (M) 71 %
[2024-07-29 11:31] LABS: Glucose,Whole Blood 244 mg/dL (70-110)
--- NOTE | 2024-07-29 12:35 | P.PN ---
Subjective Progress Note Date: 07/29/24 Principal diagnosis: Reason for follow-up is pneumonia Patient is a 74-year-old female with a past medical history significant for COPD, CVA/TIA, Deep Vein Thrombosis (DVT), Hyperlipidemia, Renal Disease, Seizure Disorder presenting to the hospital for evaluation of not feeling well in this patient who was recently diagnosed with influenza A and has been treated with the Tamiflu presented to hospital with weakness including shortness of breath and cough has been diagnosed with pneumonia. On today's evaluation that is 07/29/2024, Patient is afebrile this morning p atient denies having any chest pain still complaining of some shortness of breath but no worsening cough, the patient is currently on 2 L nasal cannula oxygen, patient denies any abdominal pain no diarrhea no nausea no vomiting. Patient white count is down to 13.84, creatinine 0.9 sputum did not grow MRSA or Pseudomonas blood culture has been pending Objective - Vital Signs Vital signs: Vital Signs Temp 98.5 F 07/29/24 07:14 Pulse 78 07/29/24 09:42 Resp 16 07/29/24 09:18 BP 152/80 07/29/24 07:14 Pulse Ox 96 07/29/24 09:17 FiO2 32 07/26/24 16:04 Intake & Output 07/28/24 07/29/24 07/29/24 18:59 06:59 18:59 Intake Total 1000 720 Balance 1000 720 Intake: Intake, IV Titration 1000 Amount Cefepime 2 gm In Sodium 100 Chloride 0.9% 100 ml @ 25 mls/hr IVPB Q8HR [facility] Rx# :[id number] Sodium Chloride 0.9% 1, 900 000 ml @ 75 mls/hr IV . [id number] [facility] Rx#:[id number] Oral 720 Other: Voiding Method Toilet Toilet # Voids 5 - Exam GENERAL DESCRIPTION: An elderly female lying in bed in no distress RESPIRATORY SYSTEM: Unlabored breathing , decreased breath sounds at bases HEART: S1 S2 regular rate and rhythm , ABDOMEN: Soft , no tenderness EXTREMITIES: No edema feet - Labs CBC & Chem 7: 07/29/24 03:25 07/29/24 03:25 Labs: Abnormal Lab Results - Last 24 Hours (Table) 07/28/24 07/28/24 07/29/24 Range/Units 16:40 20:09 03:25 WBC 13.84 H (4.50-10.00) X 10*3/uL RBC 3.22 L (4.10-5.20) X 10*6/uL Hgb 9.7 L (12.0-15.0) g/dL Hct 30.9 L (37.2-46.3) % MCHC 31.4 L (32.0-37.0) g/dL Neutrophils # (Manual) 10.52 H (1.80-7.70) X 10*3/uL Eosinophils # (Manual) 0 L (0.04-0.35) X 10*3/uL Crenated Cell 2+ A (None Seen) Chloride (96-109) mmol/L Carbon Dioxide (21.6-31.8) mmol/L BUN (9.0-27.0) mg/dL BUN/Creatinine Ratio (12.00-20.00) Ratio Glucose (70-110) mg/dL POC Glucose (mg/dL) 180 H 186 H (70-110) mg/dL Calcium (8.7-10.3) mg/dL 07/29/24 07/29/24 07/29/24 Range/Units 03:25 06:15 11:29 WBC (4.50-10.00) X 10*3/uL RBC (4.10-5.20) X 10*6/uL Hgb (12.0-15.0) g/dL Hct (37.2-46.3) % MCHC (32.0-37.0) g/dL Neutrophils # (Manual) (1.80-7.70) X 10*3/uL Eosinophils # (Manual) (0.04-0.35) X 10*3/uL Crenated Cell (None Seen) Chloride 115 H (96-109) mmol/L Carbon Dioxide 19.5 L (21.6-31.8) mmol/L BUN 28.2 H (9.0-27.0) mg/dL BUN/Creatinine Ratio 31.33 H (12.00-20.00) Ratio Glucose 166 H (70-110) mg/dL POC Glucose (mg/dL) 155 H 244 H (70-110) mg/dL Calcium 7.6 L (8.7-10.3) mg/dL Microbiology - Last 24 Hours (Table) 07/26/24 16:01 Gram Stain - Final Sputum Sputum Culture - Final 07/25/24 15:00 Blood Culture - Preliminary Blood Assessment and Plan (1) Sepsis Current Visit: Yes Status: Acute Code(s): A41.9 - SEPSIS, UNSPECIFIED ORGANISM SNOMED Code(s): 46400631 (2) Penicillin allergy Current Visit: Yes Status: Acute Code(s): Z88.0 - ALLERGY STATUS TO PENICILLIN SNOMED Code(s): 55762254 (3) Leukocytosis Current Visit: Yes Status: Acute Code(s): D72.829 - ELEVATED WHITE BLOOD CELL COUNT, UNSPECIFIED SNOMED Code(s): 643254457 (4) Pneumonia Current Visit: Yes Status: Acute Code(s): J18.9 - PNEUMONIA, UNSPECIFIED ORGANISM SNOMED Code(s): 334755592 Plan: 1patient presented to hospital with generalized weakness increasing shortness of breath patient also have a cough productive of sputum patient did have tachycardia with a heart rate of 99 elevated white count meeting criteria for SIRS source is likely pneumonia in this patient who recently did have influenza will need to cover for resistant gram-positive as well as gram-negative pathogen 2-blood sputum culture has been pending 3-patient did have a CT of the chest with significant pneumonia right side, there was no PE she did have a DVT on the ultrasound being followed by vascular and hematology 4-patient is afebrile white count is trending down sputum has been negative for MRSA/Pseudomonas will continue cefepime however discontinue vancomycin Dictation was produced using [employer] dictation software. please excuse any grammatical, word or spelling errors. Time with Patient: Less than 30
--- NOTE | 2024-07-29 13:50 | P.PN ---
Subjective Progress Note Date: 07/29/24 This is a 74-year-old female patient, presenting with symptoms of weakness, lethargy, cough, chest tightness, congestion, shortness of breath and wheeze. Her symptoms started approximately a week ago. At that time, the patient went to an urgent care and she was diagnosed having influenza infection. She was given Tamiflu. She did improve and her condition subsequently compensated. She was producing colored sputum. She was also getting progressively more weak and debilitated and for that reason she ended up coming into the hospital. In the hospital, she was given a combination of Rocephin and Zithromax. Repeat viral screen came back negative. The white cell count was at 13 with a hemoglobin of 11.1 and a platelet count of 158. D-dimer was quite elevated at 28. Based on that, the patient was given a CT angiogram that showed no evidence of any pulmonary embolism. However, there was an extensive consolidation in the right lower lobe posterior/superior segment in addition to some scattered infiltration in the left lung specially along the lines of the lingula. She is currently on oxygen at 3 L and her current pulse ox is 97%. Hemodynamically stable. She is a former smoker. She is known to have COPD. She also has a remote history of DVT and pulmonary embolism more than 20 years ago and the patient is currently off anticoagulants. She has history of hypertension, previous history of CVA back in 2017 with some right-sided weakness and impairment in the short-term memory following the stroke. 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 On today's evaluation of 07/27/2024, the patient remains on broad-spectrum antibiotics. She is on a combination of cefepime Zithromax and vancomycin. Sputum and blood culture still pending for now. Clinically, feeling better, more awake and alert compared to yesterday. Cough and congestion somewhat subsided compared to yesterday. Hemodynamically stable remains on 3 L of oxygen by nasal cannula with a pulse ox of 98%. Procalcitonin level is elevated s uggestive of underlying bacterial infection. Her procalcitonin level was at 2.35. Legionella urine antigen was negative. Viral screen was negative. The patient is seen today July 28, 2024 in follow-up on the regular medical floor. She is currently resting in bed. Maintaining O2 saturations in the 90s on 2 L/min per nasal cannula. Blood and sputum cultures revealed no growth. White count 15.9. Hemoglobin 9.6. Platelets 258. Sodium 141. Potassium 3.5. Bicarb 19. BUN 32. Creatinine 0.89. Glucose 158. She remains on DuoNeb inhalations, Pulmicort and Perforomist inhalations, Solu-Medrol. Remains on vancomycin and cefepime. NicoDerm patch in place. Lovenox for DVT prophylaxis. The patient is seen today July 29, 2024 in follow-up on the regular medical floor. She is awake and alert. Resting comfortably in bed. Maintaining good O2 saturations in the 90s on 2 L/min per nasal cannula. Remains afebrile. Hemodynamically stable. White count 13.8. Hemoglobin 9.7. Platelets 230. Sodium 143. Potassium 3.9. Bicarb 20. BUN 28. Creatinine 0.9. Glucose 166. She is continued on DuoNeb inhalations, Pulmicort and Perforomist inhalations, IV Solu-Medrol. NicoDerm patch remains in place. Lovenox for anticoagulation. Remains on cefepime. Blood culture revealed no growth. Sputum culture revealed no growth. Objective - Vital Signs Vital signs: Vital Signs Temp 98.7 F 07/29/24 13:21 Pulse 90 07/29/24 13:21 Resp 16 07/29/24 13:21 BP 146/72 07/29/24 13:21 Pulse Ox 98 07/29/24 13:21 FiO2 32 07/26/24 16:04 Intake & Output 07/28/24 07/29/24 07/29/24 18:59 06:59 18:59 Intake Total 1000 720 Balance 1000 720 Intake: Intake, IV Titration 1000 Amount Cefepime 2 gm In Sodium 100 Chloride 0.9% 100 ml @ 25 mls/hr IVPB Q8HR [facility] Rx# :[id number] Sodium Chloride 0.9% 1, 900 000 ml @ 75 mls/hr IV . [id number] [facility] Rx#:[id number] Oral 720 Other: Voiding Method Toilet Toilet # Voids 5 - Exam GENERAL EXAM: Alert, weak, 74-year-old female, resting in bed, on 2 L nasal cannula, in no apparent distress. HEAD: Normocephalic. EYES: Normal reaction of pupils, equal size. NOSE: Clear with pink turbinates. THROAT: No erythema or exudates. NECK: No masses, no JVD. CHEST: No chest wall deformity. LUNGS: Equal air entry with no crackles, wheeze, rhonchi or dullness. CVS: S1 and S2 normal with no audible murmur, regular rhythm. ABDOMEN: No hepatosplenomegaly, normal bowel sounds, no guarding or rigidity. SPINE: No scoliosis or deformity SKIN: No rashes CENTRAL NERVOUS SYSTEM: No focal deficits, tone is normal in all 4 extremities. EXTREMITIES: There is no peripheral edema. No clubbing, no cyanosis. Peripheral pulses are intact. - Labs CBC & Chem 7: 07/29/24 03:25 07/29/24 03:25 Labs: Abnormal Lab Results - Last 24 Hours (Table) 07/28/24 07/28/24 07/29/24 Range/Units 16:40 20:09 03:25 WBC 13.84 H (4.50-10.00) X 10*3/uL RBC 3.22 L (4.10-5.20) X 10*6/uL Hgb 9.7 L (12.0-15.0) g/dL Hct 30.9 L (37.2-46.3) % MCHC 31.4 L (32.0-37.0) g/dL Neutrophils # (Manual) 10.52 H (1.80-7.70) X 10*3/uL Eosinophils # (Manual) 0 L (0.04-0.35) X 10*3/uL Crenated Cell 2+ A (None Seen) Chloride (96-109) mmol/L Carbon Dioxide (21.6-31.8) mmol/L BUN (9.0-27.0) mg/dL BUN/Creatinine Ratio (12.00-20.00) Ratio Glucose (70-110) mg/dL POC Glucose (mg/dL) 180 H 186 H (70-110) mg/dL Calcium (8.7-10.3) mg/dL 07/29/24 07/29/24 07/29/24 Range/Units 03:25 06:15 11:29 WBC (4.50-10.00) X 10*3/uL RBC (4.10-5.20) X 10*6/uL Hgb (12.0-15.0) g/dL Hct (37.2-46.3) % MCHC (32.0-37.0) g/dL Neutrophils # (Manual) (1.80-7.70) X 10*3/uL Eosinophils # (Manual) (0.04-0.35) X 10*3/uL Crenated Cell (None Seen) Chloride 115 H (96-109) mmol/L Carbon Dioxide 19.5 L (21.6-31.8) mmol/L BUN 28.2 H (9.0-27.0) mg/dL BUN/Creatinine Ratio 31.33 H (12.00-20.00) Ratio Glucose 166 H (70-110) mg/dL POC Glucose (mg/dL) 155 H 244 H (70-110) mg/dL Calcium 7.6 L (8.7-10.3) mg/dL Microbiology - Last 24 Hours (Table) 07/26/24 16:01 Gram Stain - Final Sputum Sputum Culture - Final 07/25/24 15:00 Blood Culture - Preliminary Blood Assessment and Plan Assessment: Bilateral pneumonia following an acute viral infection, most likely secondary to bacterial superinfection. The patient had an influenza infection approximately a week ago and she was treated with Tamiflu. After some initial improvement, the patient's condition decompensated Acute hypoxic respiratory failure currently on 2 L of oxygen by nasal cannula Acute leukocytosis related to above Generalized weakness and lethargy secondary to pneumonia, rule out underlying sepsis COPD exacerbation secondary to above with secondary shortness of breath Remote history of DVT and pulmonary embolism, currently on no anticoagulants Chronic kidney disease History of seizure disorder History of CVA back in 2017 with some residual memory deficits and right-sided weakness History of DRY [employer]END[employer] aneurysm History of glaucoma Osteoporosis Plan: The patient was seen and evaluated Labs and medications reviewed Continued on DuoNeb inhalations Continued on Pulmicort and Perforomist inhalations Discontinue Solu-Medrol Initiated on a prednisone taper NicoDerm patch in place Educated regarding smoking cessation Lovenox for DVT prophylaxis Protonix for GI prophylaxis Remains on cefepime per ID service Blood and sputum cultures revealed no growth Will plan for follow-up chest x-ray in a.m. Titrate down the FiO2 as tolerated To be evaluated for possible home oxygen prior to discharge I have personally seen and examined the patient, performed the documentation and the assessment and plan as written. Number of minutes spent on the visit: 10 Dictation was produced using [employer] dictation software. Please excuse any grammatical, word or spelling errors.
--- NOTE | 2024-07-29 16:09 | PN ---
PROGRESS NOTE DATE OF SERVICE: 07/29/2024 SUBJECTIVE: This is a 74-year-old woman, who was admitted with COPD acute exacerbation, pneumonia, also had popliteal DVT. Multiple consultants are following the patient. No chest pain. No palpitation. OBJECTIVE: VITAL SIGNS: Pulse is 90, blood pressure 140/74, respirations 16. CHEST: Clear to auscultation. A few scattered rhonchi and crackles. ABDOMEN: Soft. NERVOUS SYSTEM: Nonfocal. LABORATORY DATA: Reviewed. ASSESSMENT: 1. Chronic obstructive pulmonary disease acute exacerbation with bilateral pneumonia, right more than left, with possibly gram-negative with sepsis present on admission. 2. Rule out right lung basal mass lesion. 3. Left popliteal artery deep vein thrombosis, possibly acute per Vascular. 4. History of recent flu. 5. History of deep vein thrombosis. 6. Increased WBC. 7. Hyperlipidemia. 8. Seizure disorder. 9. Multiple complex medical issues. RECOMMENDATIONS: Recommended to continue current management and continue symptomatic treatment. Otherwise, closely follow with Vascular, Hematology, and Oncology. The patient is on Lovenox. We will continue to monitor. Tapering steroids. Increase ambulation. Possible discharge in the next 24 to 48 hours. Overall prognosis extremely guarded because of multiple complex medical issues. MMODL / IJN: [id number] /
[2024-07-29 16:18] LABS: Glucose,Whole Blood 176 mg/dL (70-110)
[2024-07-29] MEDS ORDERED: VANCOMYCIN TROUGH DUE 1 EACH MISC MISCELLANE ONE (17:00)
--- NOTE | 2024-07-29 19:33 | XR ---
EXAMINATION TYPE: XR chest 1V portable DATE OF EXAM: 07/29/2024 7:22 PM COMPARISON: Chest radiographs from 07/26/2024 TECHNIQUE: XR chest 1V portable Portable AP radiograph of the chest. CLINICAL INDICATION:Female, 74 years old with history of shortness of breath; FINDINGS: Lungs/Pleura: There is no evidence of pleural effusion or pneumothorax. Improving medial right lower lung airspace opacities. Chronic senescent parenchymal change. Pulmonary vascularity: Unremarkable. Heart/mediastinum: Cardiomediastinal silhouette is unremarkable. Atherosclerotic calcifications are seen in the aorta. Musculoskeletal: No acute osseous pathology. IMPRESSION: Improving medial right lower lung airspace opacities. [facility], , 07/29/2024 7:30 PM
[2024-07-29 20:01] LABS: Glucose,Whole Blood 142 mg/dL (70-110)
[2024-07-29] MEDS: CEFEPIME 2 GM in SODIUM CHLORIDE 0.9% 100 ML IVPB SCH (20:41)
--- NOTE | 2024-07-29 23:39 | P.PN ---
Subjective Progress Note Date: 07/29/24 Principal diagnosis: acute on chronic DVT In f/u today pt denies fevers, SOB, chest pain, worsening leg swelling or leg pain. She is very anxious about lovenox injections. Objective - Vital Signs Vital signs: Vital Signs Temp 98.7 F 07/29/24 13:21 Pulse 90 07/29/24 13:21 Resp 16 07/29/24 13:21 BP 146/72 07/29/24 13:21 Pulse Ox 98 07/29/24 13:21 FiO2 32 07/26/24 16:04 Intake & Output 07/28/24 07/29/24 07/29/24 18:59 06:59 18:59 Intake Total 1000 720 Balance 1000 720 Intake: Intake, IV Titration 1000 Amount Cefepime 2 gm In Sodium 100 Chloride 0.9% 100 ml @ 25 mls/hr IVPB Q8HR [facility] Rx# :[id number] Sodium Chloride 0.9% 1, 900 000 ml @ 75 mls/hr IV . [id number] [facility] Rx#:[id number] Oral 720 Other: Voiding Method Toilet Toilet # Voids 5 - Constitutional General appearance: Present: average body habitus, cooperative, mild distress (anxiety) - EENT Eyes: Present: anicteric sclerae, EOMI ENT: Present: hearing grossly normal - Respiratory Respiratory: bilateral: diminished - Cardiovascular Rhythm: regular Heart sounds: normal: S1, S2 Abnormal Heart Sounds: Absent: systolic murmur, diastolic murmur, rub, S3 Gallop, S4 Gallop, click, other - Gastrointestinal General gastrointestinal: Present: soft - Neurologic Neurologic: Present: CNII-XII intact - Musculoskeletal Musculoskeletal: Present: generalized weakness - Psychiatric Psychiatric Comment(s): anxious about injections Psychiatric: Present: A&O x's 3 - Labs CBC & Chem 7: 07/29/24 03:25 07/29/24 03:25 Labs: Abnormal Lab Results - Last 24 Hours (Table) 07/28/24 07/28/24 07/29/24 Range/Units 16:40 20:09 03:25 WBC 13.84 H (4.50-10.00) X 10*3/uL RBC 3.22 L (4.10-5.20) X 10*6/uL Hgb 9.7 L (12.0-15.0) g/dL Hct 30.9 L (37.2-46.3) % MCHC 31.4 L (32.0-37.0) g/dL Neutrophils # (Manual) 10.52 H (1.80-7.70) X 10*3/uL Eosinophils # (Manual) 0 L (0.04-0.35) X 10*3/uL Crenated Cell 2+ A (None Seen) Chloride (96-109) mmol/L Carbon Dioxide (21.6-31.8) mmol/L BUN (9.0-27.0) mg/dL BUN/Creatinine Ratio (12.00-20.00) Ratio Glucose (70-110) mg/dL POC Glucose (mg/dL) 180 H 186 H (70-110) mg/dL Calcium (8.7-10.3) mg/dL 07/29/24 07/29/24 07/29/24 Range/Units 03:25 06:15 11:29 WBC (4.50-10.00) X 10*3/uL RBC (4.10-5.20) X 10*6/uL Hgb (12.0-15.0) g/dL Hct (37.2-46.3) % MCHC (32.0-37.0) g/dL Neutrophils # (Manual) (1.80-7.70) X 10*3/uL Eosinophils # (Manual) (0.04-0.35) X 10*3/uL Crenated Cell (None Seen) Chloride 115 H (96-109) mmol/L Carbon Dioxide 19.5 L (21.6-31.8) mmol/L BUN 28.2 H (9.0-27.0) mg/dL BUN/Creatinine Ratio 31.33 H (12.00-20.00) Ratio Glucose 166 H (70-110) mg/dL POC Glucose (mg/dL) 155 H 244 H (70-110) mg/dL Calcium 7.6 L (8.7-10.3) mg/dL Microbiology - Last 24 Hours (Table) 07/26/24 16:01 Gram Stain - Final Sputum Sputum Culture - Final 07/25/24 15:00 Blood Culture - Preliminary Blood Assessment and Plan (1) Deep vein thrombosis (DVT) of popliteal vein of left lower extremity Current Visit: Yes Status: Acute Priority: High Code(s): I82.432 - ACUTE EMBOLISM AND THROMBOSIS OF LEFT POPLITEAL VEIN SNOMED Code(s): 647329159 Plan: Acute on chronic LLE DVT -Provoked, acute infection/illness. -On further review of case by Vascular and Radiology felt acute component to DVT -Recommend full dose anticoagulation for minimum 3 months for provoked thrombus. -Pt has been placed on lovenox. She is very anxious about injections, to the point of tears. 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 Will see if once her deductible is met if the Rx is affordable. If not, then will try to keep her in samples for the remainder of her treatment. -Due to history of recurrent thrombus, plan for f/u in office for hypercoagulab le workup
[2024-07-30 06:23] LABS: Glucose,Whole Blood 90 mg/dL (70-110)
[2024-07-30] MEDS: predniSONE 20 MG TAB PO SCH (09:14)
[2024-07-30 11:16] LABS: Glucose,Whole Blood 119 mg/dL (70-110)
[2024-07-30 13:12] VITALS: BP 137/74; RESP 17; TEMP 98.4
[2024-07-30 13:29] VITALS: PULSE 80
--- NOTE | 2024-07-30 14:00 | P.PN ---
Subjective Progress Note Date: 07/30/24 This is a 74-year-old female patient, presenting with symptoms of weakness, lethargy, cough, chest tightness, congestion, shortness of breath and wheeze. Her symptoms started approximately a week ago. At that time, the patient went to an urgent care and she was diagnosed having influenza infection. She was given Tamiflu. She did improve and her condition subsequently compensated. She was producing colored sputum. She was also getting progressively more weak and debilitated and for that reason she ended up coming into the hospital. In the hospital, she was given a combination of Rocephin and Zithromax. Repeat viral screen came back negative. The white cell count was at 13 with a hemoglobin of 11.1 and a platelet count of 158. D-dimer was quite elevated at 28. Based on that, the patient was given a CT angiogram that showed no evidence of any pulmonary embolism. However, there was an extensive consolidation in the right lower lobe posterior/superior segment in addition to some scattered infiltration in the left lung specially along the lines of the lingula. She is currently on oxygen at 3 L and her current pulse ox is 97%. Hemodynamically stable. She is a former smoker. She is known to have COPD. She also has a remote history of DVT and pulmonary embolism more than 20 years ago and the patient is currently off anticoagulants. She has history of hypertension, previous history of CVA back in 2017 with some right-sided weakness and impairment in the short-term memory following the stroke. 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 On today's evaluation of 07/27/2024, the patient remains on broad-spectrum antibiotics. She is on a combination of cefepime Zithromax and vancomycin. Sputum and blood culture still pending for now. Clinically, feeling better, more awake and alert compared to yesterday. Cough and congestion somewhat subsided compared to yesterday. Hemodynamically stable remains on 3 L of oxygen by nasal cannula with a pulse ox of 98%. Procalcitonin level is elevated s uggestive of underlying bacterial infection. Her procalcitonin level was at 2.35. Legionella urine antigen was negative. Viral screen was negative. The patient is seen today July 28, 2024 in follow-up on the regular medical floor. She is currently resting in bed. Maintaining O2 saturations in the 90s on 2 L/min per nasal cannula. Blood and sputum cultures revealed no growth. White count 15.9. Hemoglobin 9.6. Platelets 258. Sodium 141. Potassium 3.5. Bicarb 19. BUN 32. Creatinine 0.89. Glucose 158. She remains on DuoNeb inhalations, Pulmicort and Perforomist inhalations, Solu-Medrol. Remains on vancomycin and cefepime. NicoDerm patch in place. Lovenox for DVT prophylaxis. The patient is seen today July 29, 2024 in follow-up on the regular medical floor. She is awake and alert. Resting comfortably in bed. Maintaining good O2 saturations in the 90s on 2 L/min per nasal cannula. Remains afebrile. Hemodynamically stable. White count 13.8. Hemoglobin 9.7. Platelets 230. Sodium 143. Potassium 3.9. Bicarb 20. BUN 28. Creatinine 0.9. Glucose 166. She is continued on DuoNeb inhalations, Pulmicort and Perforomist inhalations, IV Solu-Medrol. NicoDerm patch remains in place. Lovenox for anticoagulation. Remains on cefepime. Blood culture revealed no growth. Sputum culture revealed no growth. The patient is seen today July 30, 2024 in follow-up on the regular medical floor. She is awake and alert in no acute distress. Currently sitting up in bed. Denies any worsening shortness of breath, cough or congestion. Maintaining O2 saturations in the 90s on 2 L/min per nasal cannula. States she is doing much better today. Chest x-ray shows improved right lower lobe airspace opacity. Sputum culture revealed no growth. Blood culture revealed no growth. Glucose 119. She remains on DuoNeb and elations, Pulmicort and Perforomist inhalations, prednisone taper. NicoDerm patch in place. Anticoagulated with Eliquis. Antibiotics in the form of cefepime. Objective - Vital Signs Vital signs: Vital Signs Temp 98.4 F 07/30/24 13:11 Pulse 80 07/30/24 13:29 Resp 17 07/30/24 13:11 BP 137/74 07/30/24 13:11 Pulse Ox 91 L 07/30/24 13:11 FiO2 32 07/26/24 16:04 Intake & Output 04/12/1507/30/24 07/30/24 18:59 06:59 18:59 Intake Total 500 Balance 500 Intake: Oral 500 Other: Voiding Method Toilet # Voids 5 2 - Exam GENERAL EXAM: Alert, pleasant 74-year-old female, sitting up in bed, on 2 L nasal cannula, in no apparent distress. HEAD: Normocephalic. EYES: Normal reaction of pupils, equal size. NOSE: Clear with pink turbinates. THROAT: No erythema or exudates. NECK: No masses, no JVD. CHEST: No chest wall deformity. LUNGS: Equal air entry with faint crackles in the right lung base. CVS: S1 and S2 normal with no audible murmur, regular rhythm. ABDOMEN: No hepatosplenomegaly, normal bowel sounds, no guarding or rigidity. SPINE: No scoliosis or deformity SKIN: No rashes CENTRAL NERVOUS SYSTEM: No focal deficits, tone is normal in all 4 extremities. EXTREMITIES: There is no peripheral edema. No clubbing, no cyanosis. Peripheral pulses are intact. - Labs CBC & Chem 7: 07/29/24 03:25 07/29/24 03:25 Labs: Abnormal Lab Results - Last 24 Hours (Table) 07/29/24 07/29/24 07/30/24 Range/Units 16:16 19:59 11:14 POC Glucose (mg/dL) 176 H 142 H 119 H (70-110) mg/dL Assessment and Plan Assessment: Bilateral pneumonia following an acute viral infection, most likely secondary to bacterial superinfection. The patient had an influenza infection approximately a week ago and she was treated with Tamiflu. After some initial improvement, the patient's condition decompensated. Follow-up chest x-ray shows improvement. Feeling back to her baseline Acute hypoxic respiratory failure currently on 2 L of oxygen by nasal cannula Acute leukocytosis related to above Generalized weakness and lethargy secondary to pneumonia, rule out underlying sepsis COPD exacerbation secondary to above with secondary shortness of breath Remote history of DVT and pulmonary embolism, currently on no anticoagulants Chronic kidney disease History of seizure disorder History of CVA back in 2017 with some residual memory deficits and right-sided weakness History of [employer]NCING [employer] O[employer] aneurysm History of glaucoma Osteoporosis Plan: The patient was seen and evaluated Chest x-ray, labs and medications reviewed Cleared for discharge from the pulmonary standpoint Complete a prednisone taper Add Symbicort, albuterol HFA Anticoagulated with Eliquis NicoDerm patch in place Educated regarding smoking cessation Antibiotics per ID service To be evaluated for possible home oxygen prior to discharge Follow-up in our office in 1 week This patient was seen independently by the pulmonary nurse practitioner addressing pulmonary issues I have personally seen and examined the patient, performed the documentation and the assessment and plan as written. Number of minutes spent on the visit: 24 Dictation was produced using [employer] dictation software. Please excuse any grammatical, word or spelling errors.
[2024-07-30] MEDS ORDERED: ALBUTEROL HFA INHALER INHALATION PRN (14:02)
[2024-07-30] MEDS ORDERED: SYMBICORT 160-4.5 MCG INHALER INHALATION SCH (20:00)
[2024-07-30] MEDS ORDERED: Apixaban Initiation Dose--VTE 5 MG TAB PO SCH (21:00)
--- NOTE | 2024-07-30 22:42 | P.PN ---
Subjective Progress Note Date: 07/30/24 Principal diagnosis: acute on chronic DVT In f/u today pt denies any acute complaints, no chest pain, worsening swelling or pain in the legs. Plan is for discharge today Objective - Vital Signs Vital signs: Vital Signs Temp 98.2 F 07/30/24 07:22 Pulse 88 07/30/24 09:42 Resp 16 07/30/24 08:00 BP 148/73 07/30/24 07:22 Pulse Ox 98 07/30/24 09:17 FiO2 32 07/26/24 16:04 Intake & Output 07/29/24 07/30/24 07/30/24 18:59 06:59 18:59 Intake Total 500 Balance 500 Intake: Oral 500 Other: Voiding Method Toilet # Voids 5 2 - Exam Well-developed, adequately nourished, no acute distress, alert and oriented x 3, respirations unlabored at rest, patient has good color, well-perfused, skin is warm and dry. - Labs CBC & Chem 7: 07/29/24 03:25 07/29/24 03:25 Labs: Abnormal Lab Results - Last 24 Hours (Table) 07/29/24 07/29/24 07/30/24 Range/Units 16:16 19:59 11:14 POC Glucose (mg/dL) 176 H 142 H 119 H (70-110) mg/dL Assessment and Plan (1) Deep vein thrombosis (DVT) of popliteal vein of left lower extremity Status: Acute Priority: High Code(s): I82.432 - ACUTE EMBOLISM AND THROMBOSIS OF LEFT POPLITEAL VEIN SNOMED Code(s): 268755672 Plan: Acute on chronic LLE DVT -Provoked, acute infection/illness. -On further review of case by Vascular and Radiology felt acute component to DVT -Recommend full dose anticoagulation for minimum 3 months for provoked thrombus. -Free month of Eliquis. Will see if once her deductible is met if the Rx is affordable. If not, then will try to keep her in samples for the remainder of her treatment. -Due to history of recurrent thrombus, plan for f/u in office for hypercoagulable workup, patient verbalized understanding the plan is agreeable to the same
--- NOTE | 2024-07-31 10:00 | P.DS ---
Providers Date of admission: 07/26/24 15:00 Expected date of discharge: 07/30/24 Attending physician: Pilar Newton Consults: 07/25/24 13:55 Consult Physician Routine Consulting Provider: Lisa Harvey Consult Reason/Comments: copd Do you want consulting provider notified?: Yes Consult Physician Routine Consulting Provider: Jerilyn Box Consult Reason/Comments: sepsis Do you want consulting provider notified?: Yes 07/27/24 12:28 Consult Physician Routine Consulting Provider: Edwin Starks Consult Reason/Comments: dvt popliteal Do you want consulting provider notified?: Yes Primary care physician: Travon Marc Hospital Course: Final diagnosis Chronic obstructive pulmonary disease acute exacerbation with bilateral pneumonia right more than left with possible gram-negative, with sepsis present on admission Acute hypoxic respiratory failure secondary to above, improved does not qualify for home O2 Possible right lung basal mass lesion, difficult to exclude, will need further outpatient additional studies Left popliteal arterial deep vein thrombosis, likely acute History of recent flu History of DVT Increased WBC Hyperlipidemia Seizure disorder GI prophylaxis DVT prophylaxis Full code Discharge disposition Patient is being discharged in a stable condition with guarded prognosis to home. Patient will follow-up with Dr. Marc in the outpatient setting upon discharge. Patient is to continue with breathing treatments along with Ceftin twice daily for 1 week and close outpatient follow-up with pulmonary as scheduled. Total time taken is greater than 35 minutes. Hospital course This is a 74-year-old female who was recently admitted with increased shortness of breath with fatigue not feeling well and was brought here by family for further evaluation. Patient noted to have COPD acute exacerbation with bilateral pneumonia and acute hypoxic respiratory failure. Multiple consultations including infectious disease and pulmonary following maintained on breathing treatments and will transition to DuoNeb treatments and inhalers on discharge along with oral Ceftin twice daily for 1 week to complete the course. Patient will continue with steroid taper and recommend outpatient follow-up with pulmonary. Patient has been instructed to follow-up with primary care provider on discharge as well. Patient has been cleared by consultations and will be going home. Please refer to consultation notes for further HPI. Patient was evaluated for possible home O2 although does not qualify and is currently above 90% on room air. Currently no reports of chest pain, shortness of breath, or palpitations. Patient is afebrile. No reports of nausea or vomiting and patient is tolerating diet. Patient will be discharged home today. High risk for readmission given significant comorbidities. Physical exam: Gen: This is a 74-year-old female who is awake, alert and oriented x 3, thin built, elderly appearing HEENT: Head is atraumatic, normocephalic. Pupils equal, round. Sclerae is anicteric. NECK: Supple. No JVD. No lymphadenopathy. No thyromegaly. LUNGS: Diminished breath sounds bilaterally otherwise clear to auscultation. No wheezes, a few scattered rhonchi. No intercostal retractions. HEART: S1, S2 are muffled ABDOMEN: Soft. Thin bowel sounds are present. No masses. No tenderness. EXTREMITIES: No pedal edema. No calf tenderness. NEUROLOGICAL: Patient is awake, alert and oriented x3. Cranial nerves 2 through 12 are grossly intact. Please refer to medication reconciliation sheet for a list of medications. The impression and plan of care has been dictated by Debby Yeh, Nurse Practitioner as directed. Dr. Aman MD I have performed a history and examination and MDM of this patient, discussed the same with the dictator, and agree with the dictator's assessment and plan as written ,documented as a scribe. Based on total visit time, I have performed more than 50% of the visit. Patient Condition at Discharge: Stable Plan - Discharge Summary Discharge Rx Participant: No New Discharge Prescriptions: New Apixaban [Eliquis Starter Pack (for VTE)] 5 - 10 mg PO DIRECTED 30 Days #1 each Ipratropium-Albuterol Nebulize [Duoneb 0.5 mg-3 mg/3 ml Soln] 3 ml INHALATION QID #360 ml Nicotine 14Mg/24Hr Patch [Habitrol] 1 patch TRANSDERM DAILY #30 patch Pantoprazole [Protonix] 40 mg PO BID 15 Days #30 tab Budesonide-Formot 160-4.5 Mcg [Symbicort 160-4.5 Mcg Inhaler] 2 puff INHALATION RT-BID 30 Days #1 each Albuterol Inhaler [Ventolin Hfa Inhaler] 2 puff INHALATION RT-QID PRN 30 Days #1 each PRN Reason: Shortness Of Breath Or Wheezing predniSONE See Taper PO DIRECTED #30 tab cefuroxime axetiL [Ceftin] 500 mg PO BID 7 Days #14 tab Continue Midodrine HCl [ProAmantine] 2.5 mg PO DAILY Latanoprost/Pf [Latanoprost 0.005% Eye Drop] 1 drop BOTH EYES HS Clopidogrel [Plavix] 75 mg PO DAILY Atorvastatin [Lipitor] 40 mg PO DAILY Ubidecarenone [Coenzyme Q10] 200 mg PO DAILY Calcium Carbonate/Vitamin D3 [Calcium 600 mg-Vit D3 5 mcg (200 unit)] 2 tab PO DAILY Aspirin 81 mg PO DAILY Discharge Medication List Aspirin 81 mg PO DAILY 09/09/21 [History] Atorvastatin [Lipitor] 40 mg PO DAILY 09/09/21 [History] Clopidogrel [Plavix] 75 mg PO DAILY 09/09/21 [History] Latanoprost/Pf [Latanoprost 0.005% Eye Drop] 1 drop BOTH EYES HS 09/09/21 [History] Midodrine HCl [ProAmantine] 2.5 mg PO DAILY 09/09/21 [History] Calcium Carbonate/Vitamin D3 [Calcium 600 mg-Vit D3 5 mcg (200 unit)] 2 tab PO DAILY 07/25/24 [History] Ubidecarenone [Coenzyme Q10] 200 mg PO DAILY 07/25/24 [History] Apixaban [Eliquis Starter Pack (for VTE)] 5 - 10 mg PO DIRECTED 30 Days #1 each 07/29/24 [Rx] Albuterol Inhaler [Ventolin Hfa Inhaler] 2 puff INHALATION RT-QID PRN 30 Days #1 each 07/30/24 [Rx] Budesonide-Formot 160-4.5 Mcg [Symbicort 160-4.5 Mcg Inhaler] 2 puff INHALATION RT-BID 30 Days #1 each 07/30/24 [Rx] Ipratropium-Albuterol Nebulize [Duoneb 0.5 mg-3 mg/3 ml Soln] 3 ml INHALATION QID #360 ml 07/30/24 [Rx] Nicotine 14Mg/24Hr Patch [Habitrol] 1 patch TRANSDERM DAILY #30 patch 07/30/24 [Rx] Pantoprazole [Protonix] 40 mg PO BID 15 Days #30 tab 07/30/24 [Rx] cefuroxime axetiL [Ceftin] 500 mg PO BID 7 Days #14 tab 07/30/24 [Rx] predniSONE See Taper PO DIRECTED #30 tab 07/30/24 [Rx] Follow up Appointment(s)/Referral(s): Edwin Starks [STAFF PHYSICIAN] - 3 Weeks (Please call office to schedule appointment ) Travon Marc DO [Primary Care Provider] - 08/06/24 2:00 pm (with Juan Diego ) Lisa Harvey MD [STAFF PHYSICIAN] - 10/29/24 9:00 am Activity/Diet/Wound Care/Special Instructions: Okay for discharge Activity limited until follow-up Follow-up with primary care provider on discharge Follow-up with neurology outpatient Follow-up with cardiology outpatient Follow-up with pulmonary outpatient Follow-up with hematology outpatient Continue taking medications as prescribed Continue with Eliquis 10 mg twice daily for 1 week and then titrate down to 5 mg twice daily thereafter Continue antibiotics until finished Continue prednisone taper Continue with breathing inhalational treatments Discharge Disposition: HOME SELF-CARE
--- NOTE | 2024-07-31 14:53 | P.PN ---
Subjective Progress Note Date: 07/30/24 Principal diagnosis: Reason for follow-up is pneumonia Patient is a 74-year-old female with a past medical history significant for COPD, CVA/TIA, Deep Vein Thrombosis (DVT), Hyperlipidemia, Renal Disease, Seizure Disorder presenting to the hospital for evaluation of not feeling well in this patient who was recently diagnosed with influenza A and has been treated with the Tamiflu presented to hospital with weakness including shortness of breath and cough has been diagnosed with pneumonia. On today's evaluation that is 07/30/2024,the patient denies any fever or any chills, patient is breathing comfortably on 2 L nasal cannula oxygen, the patient denies chest pain shortness of breath and cough is decreased in intensity, patient denies abdominal pain, no nausea vomiting or diarrhea.. No new lab has been obtained today sputum and blood culture has been negative Objective - Vital Signs Vital signs: Vital Signs Temp 98.2 F 07/30/24 07:22 Pulse 88 07/30/24 09:42 Resp 16 07/30/24 08:00 BP 148/73 07/30/24 07:22 Pulse Ox 98 07/30/24 09:17 FiO2 32 07/26/24 16:04 Intake & Output 07/29/24 07/30/24 07/30/24 18:59 06:59 18:59 Intake Total 500 Balance 500 Intake: Oral 500 Other: Voiding Method Toilet # Voids 5 2 - Exam GENERAL DESCRIPTION: An elderly female lying in bed in no distress RESPIRATORY SYSTEM: Unlabored breathing , decreased breath sounds at bases HEART: S1 S2 regular rate and rhythm , ABDOMEN: Soft , no tenderness EXTREMITIES: No edema feet - Labs CBC & Chem 7: 07/29/24 03:25 07/29/24 03:25 Labs: Abnormal Lab Results - Last 24 Hours (Table) 07/29/24 07/29/24 07/30/24 Range/Units 16:16 19:59 11:14 POC Glucose (mg/dL) 176 H 142 H 119 H (70-110) mg/dL Assessment and Plan (1) Sepsis Status: Acute Code(s): A41.9 - SEPSIS, UNSPECIFIED ORGANISM SNOMED Code(s): 73603591 (2) Penicillin allergy Status: Acute Code(s): Z88.0 - ALLERGY STATUS TO PENICILLIN SNOMED Code(s): 83942492 (3) Leukocytosis Status: Acute Code(s): D72.829 - ELEVATED WHITE BLOOD CELL COUNT, UNSPECIFIED SNOMED Code(s): 228895714 (4) Pneumonia Status: Acute Code(s): J18.9 - PNEUMONIA, UNSPECIFIED ORGANISM SNOMED Code(s): 564400451 Plan: 1patient presented to hospital with generalized weakness increasing shortness of breath patient also have a cough productive of sputum patient did have tachycardia with a heart rate of 99 elevated white count meeting criteria for SIRS source is likely pneumonia in this patient who recently did have influenza will need to cover for resistant gram-positive as well as gram-negative pathogen 2-blood sputum culture has been pending 3-patient did have a CT of the chest with significant pneumonia right side, there was no PE she did have a DVT on the ultrasound being followed by vascular and hematology 4-patient is afebrile white count is trending down as of yesterday no CBC was done today sputum negative for resistant pathogen patient be admitted for therapy with oral Ceftin discussed with the SPECTROGRAPHER for admitting team Dictation was produced using [employer] dictation software. please excuse any grammatical, word or spelling errors. Time with Patient: Less than 30
== END 2024-07-30 17:18 | disposition home or self-care (01) | DRG 871 ==
LOC: EC 09:26 → 4SSUR 14:41 → OBSVTOIN 07-26 15:00
PROVIDERS: ADMIT Hospitalist; ATTEND Hospitalist
DX: A41.9 Sepsis, unspecified organism (principal); G93.41 Metabolic encephalopathy; J15.69 Pneumonia due to other Gram-negative bacteria; J10.08 Influenza due to other identified influenza virus with other specified pneumonia; J15.9 Unspecified bacterial pneumonia; J96.01 Acute respiratory failure with hypoxia; I82.432 Acute embolism and thrombosis of left popliteal vein; I69.351 Hemiplegia and hemiparesis following cerebral infarction affecting right dominant side; J44.0 Chronic obstructive pulmonary disease with (acute) lower respiratory infection; N18.30 Chronic kidney disease, stage 3 unspecified; G40.909 Epilepsy, unspecified, not intractable, without status epilepticus; I12.9 Hypertensive chronic kidney disease with stage 1 through stage 4 chronic kidney disease, or unspecified chronic kidney disease; D64.9 Anemia, unspecified; J44.1 Chronic obstructive pulmonary disease with (acute) exacerbation; M81.0 Age-related osteoporosis without current pathological fracture; E78.5 Hyperlipidemia, unspecified; F17.210 Nicotine dependence, cigarettes, uncomplicated; Z79.01 Long term (current) use of anticoagulants; Z79.02 Long term (current) use of antithrombotics/antiplatelets; Z79.82 Long term (current) use of aspirin; Z79.899 Other long term (current) drug therapy; Z86.711 Personal history of pulmonary embolism; Z86.718 Personal history of other venous thrombosis and embolism; Z87.11 Personal history of peptic ulcer disease; Z88.0 Allergy status to penicillin; Z90.710 Acquired absence of both cervix and uterus
CPT/HCPCS: 36415; 71045; 71046; 71275; 80048; 80053; 82565; 83036; 83605; 83735; 83880; 84145; 85025; 85379; 87040; 87070; 87205; 87449; 87636; 93306; 93970; 94640; 94760; 96361; 96365; 96366; 96367; 96368; 96372; 96375; 96376; 99291

== ENCOUNTER 2024-07-31 06:25 | Inpatient (IN) | payer MEDICARE ==
--- NOTE | 2024-07-31 06:56 | ED ---
Abdominal Pain HPI - General Chief Complaint: Abdominal Pain Stated Complaint: abd pain Time Seen by Provider: 07/31/24 06:39 Source: patient, family, RN notes reviewed Mode of arrival: wheelchair - History of Present Illness Initial Comments: This is a 74-year-old female with multiple comorbid conditions including COPD, history of CVA, DVT (on eliquis) presenting to the emergency department with daughter for complaints of abdominal pain. Patient states that she has been experiencing diffuse abdominal pain most notable over the lower abdomen that started yesterday evening. She states that she has not had a bowel movement since Sunday however since patient was recently admitted to the hospital this has been normal for her to go every other day. She denies associated nausea, vomiting, fevers, chills. Of note, patient was recently admitted to the hospital and discharged yesterday for COPD exacerbation and bilateral pneumonia in addition to DVT of the LLE and started on eliquis. Daughter at bedside states that the patient has been unable to fruit or nut picker her prescribed medications since discharge yesterday. - Related Data Home Medications Medication Instructions Recorded Confirmed Aspirin 81 mg PO DAILY 09/09/21 07/25/24 Atorvastatin [Lipitor] 40 mg PO DAILY 09/09/21 07/25/24 Clopidogrel [Plavix] 75 mg PO DAILY 09/09/21 07/25/24 Latanoprost/Pf [Latanoprost 0.005% 1 drop BOTH EYES HS 09/09/21 07/25/24 Eye Drop] Midodrine HCl [ProAmantine] 2.5 mg PO DAILY 09/09/21 07/25/24 Calcium Carbonate/Vitamin D3 2 tab PO DAILY 07/25/24 07/25/24 [Calcium 600 mg-Vit D3 5 mcg (200 unit)] Ubidecarenone [Coenzyme Q10] 200 mg PO DAILY 07/25/24 07/25/24 Previous Rx's Medication Instructions Recorded Apixaban [Eliquis Starter Pack 5 - 10 mg PO DIRECTED 30 Days 07/29/24 (for VTE)] #1 each Albuterol Inhaler [Ventolin Hfa 2 puff INHALATION RT-QID PRN 30 07/30/24 Inhaler] Days #1 each Budesonide-Formot 160-4.5 Mcg 2 puff INHALATION RT-BID 30 Days 07/30/24 [Symbicort 160-4.5 Mcg Inhaler] #1 each Ipratropium-Albuterol Nebulize 3 ml INHALATION QID #360 ml 07/30/24 [Duoneb 0.5 mg-3 mg/3 ml Soln] Nicotine 14Mg/24Hr Patch [Habitrol] 1 patch TRANSDERM DAILY #30 patch 07/30/24 Pantoprazole [Protonix] 40 mg PO BID 15 Days #30 tab 07/30/24 cefuroxime axetiL [Ceftin] 500 mg PO BID 7 Days #14 tab 07/30/24 predniSONE See Taper PO DIRECTED #30 tab 07/30/24 Allergies Allergy/AdvReac Type Severity Reaction Status Date / Time Penicillins Allergy throat Verified 07/31/24 06:36 swelling Review of Systems ROS Statement: Those systems with pertinent positive or pertinent negative responses have been documented in the HPI. ROS Other: All systems not noted in ROS Statement are negative. Past Medical History Past Medical History: COPD, CVA/TIA, Deep Vein Thrombosis (DVT), Hyperlipidemia, Renal Disease, Seizure Disorder Additional Past Medical History / Comment(s): 2017 cva right side weakness and slow responses at times, short term memory impairment s/p stroke. osteoporosis, low BP, glaucoma, stage 3 chronic kidney disease, chronic sinusitis, left hand fracture s/p fall, stomach ulcers, syncope, dehydration, epilepsy over 25 years ago from last seizures, small hole in heart, 3 small brain aneurysms History of Any Multi-Drug Resistant Organisms: None Reported Past Surgical History: Adenoidectomy, Hysterectomy, Tonsillectomy Additional Past Surgical History / Comment(s): left hand surgey, Past Anesthesia/Blood Transfusion Reactions: No Reported Reaction Past Psychological History: No Psychological Hx Reported Smoking Status: Current every day smoker Past Alcohol Use History: None Reported Past Drug Use History: None Reported - Past Family History Mother Family Medical History: No Reported History Brother(s) Family Medical History: Cancer Additional Family Medical History / Comment(s): Lung CA, TB General Exam General appearance: alert, in no apparent distress ENT exam: Present: normal exam, mucous membranes moist Neck exam: Present: normal inspection. Absent: tenderness, meningismus, lymphadenopathy Respiratory exam: Present: normal lung sounds bilaterally. Absent: respiratory distress, wheezes, rales, rhonchi, stridor Cardiovascular Exam: Present: regular rate, normal rhythm, normal heart sounds. Absent: systolic murmur, diastolic murmur, rubs, gallop, clicks GI/Abdominal exam: Present: soft, tenderness (diffuse, most noteable over suprapubic and left lower), rebound, normal bowel sounds. Absent: distended, guarding, rigid Extremities exam: Present: normal inspection, full ROM, normal capillary refill. Absent: tenderness, pedal edema, joint swelling, calf tenderness Back exam: Present: normal inspection. Absent: CVA tenderness (R), CVA tenderness (L) Neurological exam: Present: alert, oriented X3, CN II-XII intact Course Vital Signs 07/31/24 07/31/24 07/31/24 06:33 07:25 07:38 Temperature 97.5 F L Pulse Rate 87 88 86 Respiratory 18 22 Rate Blood Pressure 126/73 132/65 O2 Sat by Pulse 95 97 Oximetry 07/31/24 07/31/24 07/31/24 07:47 09:43 12:08 Temperature Pulse Rate 88 92 83 Respiratory 22 16 Rate Blood Pressure 134/81 128/63 O2 Sat by Pulse 94 L 95 Oximetry Medical Decision Making - Medical Decision Making Was pt. sent in by a medical professional or institution (, PA, RECREATION THERAPIST, urgent care, hospital, or senior living...) When possible be specific @ -No Did you speak to anyone other than the patient for history (EMS, parent, family, police, friend...)? What history was obtained from this source @ -Spoke to patient's daughter at bedside who is patient's guardian states that she was unable to fruit or nut picker his medications after discharge from hospital yesterday due to pharmacy not having medications in stock. She states the medications have been sent this morning. Did you review nursing and triage notes (agree or disagree)? Why? @ -I reviewed and agree with nursing and triage notes Were old charts reviewed (outside hosp., previous admission, EMS record, old EKG, old radiological studies, urgent care reports/EKG's, senior living records)? Report findings @ -Reviewed patient's recent hospital admission where he noted to have a acute on chronic left lower extremity DVT and started on Eliquis anticoagulation for 3 months with plan for hypercoagulable workup outpatient. Additionally, patient was admitted COPD exacerbation. Differential Diagnosis (chest pain, altered mental status, abdominal pain women, abdominal pain men, vaginal bleeding, weakness, fever, dyspnea, syncope, headache, dizziness, GI bleed, back pain, seizure, CVA, palpatations, mental health, musculoskeletal)? @ -Differential Abdominal Pain Women: Appendicitis, Cholecystitis, diverticulosis, ischemic bowel, pancreatitis, hepatitis, UTI, gastroenteritis, AAA, incarcerated hernia, bowel obstruction, constipation, inflammatory bowel, hepatitis, peptic ulcer disease, splenic infarction, perforated viscus, vulvitis, ovarian torsion, PID, kidney stone, placenta abruption, this is not meant to be an all-inclusive list EKG interpreted by me (3pts min.). @ -none X-rays interpreted by me (1pt min.). @ -None done CT interpreted by me (1pt min.). @ -CT of the abdomen pelvis with IV contrast is concerning for a left rectus abdominis muscle acute hematoma anterior to the pelvic wall with a small amount of subcutaneous air present, incidental finding of 1.9 cm hypodensity within the body of the pancreas. U/S interpreted by me (1pt. min.). @ -None done What testing was considered but not performed or refused? (CT, X-rays, U/S, labs)? Why? @ -None What meds were considered but not given or refused? Why? @ -None Did you discuss the management of the patient with other professionals (professionals i.e. , PA, RECREATION THERAPIST, lab, RT, psych nurse, professor of social work, batch tester, teacher, school services officer, onsite case manager)? Give summary @ -Spoke with on-call physician, Dr. Beck, and regard to the patient's presentation and CT scan concerning for rectus abdominis acute hematoma. Patient has been accepted for admission and recommend general surgery and GI consult. Was smoking cessation discussed for >3mins.? @ -No Was critical care preformed (if so, how long)? @ -No Were there social determinants of health that impacted care today? How? (Homelessness, low income, unemployed, alcoholism, drug addiction, transportation, low edu. Level, literacy, decrease access to med. care, nursing home, rehab)? @ -No Was there de-escalation of care discussed even if they declined (Discuss DNR or withdrawal of care, Hospice)? DNR status @ -No What co-morbidities impacted this encounter? (DM, HTN, Smoking, COPD, CAD, Cancer, CVA, ARF, Chemo, Hep., AIDS, mental health diagnosis, sleep apnea, morbid obesity)? @ -None Was patient admitted / discharged? Hospital course, mention meds given and route, prescriptions, significant lab abnormalities, going to OR and other pertinent info. @ -admitted. 74 year old female presenting to emergency department for complaints of abdominal pain. Patient noted to be in mild distress on evaluation clutching her abdomen. Initial vitals are stable. Abdominal pain is reproducible palpation with mild rebound tenderness however abdomen is soft and nonrigid. She is provided with pain medication. Laboratory testing remarkable for leukocytosis of 15.27 with left shift neutrophils at 10.23 likely secondary to pneumonia and current corticosteroid use. CMP with mild elevation in LFTs. Urinalysis no signs of infection, patient had to be straight cathed as she was unable to provide a urine sample and bladder scan revealed over [address] imaging of the abdomen pelvis with IV contrast concerning for left rectus abdominis muscle acute hematoma anterior to the pelvic wall with small amount of subcutaneous air present and is reported to me by radiologist at 0933. Patient was personally evaluated by my attending, Dr. Watts, who recommends the patient be admitted for pain management. I spoke with on-call physician who is excepted admission and recommended general surgery and GI consult. Patient will have an as needed pain medication. Consult orders placed. Undiagnosed new problem with uncertain prognosis? @ -No Drug Therapy requiring intensive monitoring for toxicity (Heparin, Nitro, Insulin, Cardizem)? @ -No Were any procedures done? @ -No Diagnosis/symptom? @ -Abdominal pain, rectus abdominis muscle hematoma Acute, or Chronic, or Acute on Chronic? @ -Acute Uncomplicated (without systemic symptoms) or Complicated (systemic symptoms)? @ -Complicated Side effects of treatment? @ -No Exacerbation, Progression, or Severe Exacerbation? @ -No Poses a threat to life or bodily function? How? (Chest pain, [place], [place], pneumonia, PE, COPD, DKA, ARF, appy, cholecystitis, CVA, Diverticulitis, Homicidal, S uicidal, threat to staff... and all critical care pts) @ -No - Lab Data Result diagrams: 07/31/24 06:58 07/31/24 06:58 Lab Results 0407/31/24 07/31/24 Range/Units 06:58 06:58 06:58 WBC 15.27 H (4.50-10.00) 10*3/uL RBC 3.74 L (4.10-5.20) 10*6/uL Hgb 11.6 L (12.0-15.0) g/dL Hct 35.0 L (37.2-46.3) % MCV 93.6 (80.0-97.0) fL MCH 31.0 (27.0-32.0) pg MCHC 33.1 (32.0-37.0) g/dL Plt Count 260 (140-440) 10*3/uL MPV 9.6 (9.5-12.2) fL Immature Gran % (Auto) 11.3 % Neutrophils % (Manual) 66 % Band Neuts % (Manual) 1 % Lymphocytes % (Manual) 23 % Monocytes % (Manual) 10 % Eosinophils % (Manual) 1 % Immature Gran # 1.74 H (0.00-0.04) 10*3/uL Neutrophils # (Manual) 10.23 H (1.3-7.7) k/uL Lymphocytes # (Manual) 3.51 (1.0-4.8) k/uL Monocytes # (Manual) 1.53 H (0-1.0) k/uL Eosinophils # (Manual) 0.15 (0-0.7) k/uL Nucleated RBCs 1 H (0-0) /100 WBC Manual Slide Review Performed Poikilocytosis (manual Present Sodium 138 (137-145) mmol/L Potassium 3.5 (3.5-5.1) mmol/L Chloride 106 (98-107) mmol/L Carbon Dioxide 27 (22-30) mmol/L Anion Gap 5 mmol/L BUN 23 H (7-17) mg/dL Creatinine 0.75 (0.52-1.04) mg/dL Est GFR (CKD-EPI)AfAm >90 (>60 ml/min/1.73 sqM) Est GFR (CKD-EPI)NonAf 79 (>60 ml/min/1.73 sqM) Glucose 109 H (74-99) mg/dL Plasma Lactic Acid Sam 1.9 (0.7-2.0) mmol/L Calcium 8.0 L (8.4-10.2) mg/dL Total Bilirubin 1.1 (0.2-1.3) mg/dL AST 40 H (14-36) U/L ALT 60 H (4-34) U/L Alkaline Phosphatase 137 H (38-126) U/L Total Protein 5.7 L (6.3-8.2) g/dL Albumin 3.3 L (3.5-5.0) g/dL Amylase 102 (30-110) U/L Lipase 187 (23-300) U/L Urine Color Urine Appearance (Clear) Urine pH (5.0-8.0) Ur Specific [place] (1.001-1.035) Urine Protein (Negative) Urine Glucose (UA) (Negative) Urine Ketones (Negative) Urine Blood (Negative) Urine Nitrite (Negative) Urine Bilirubin (Negative) Urine Urobilinogen (<2.0) mg/dL Ur Leukocyte Esterase (Negative) Urine RBC (0-5) /hpf Urine WBC (0-5) /hpf Ur Squamous Epith Cells (0-4) /hpf Urine Mucus (None) /hpf 04/02/14 Range/Units 10:15 WBC (4.50-10.00) 10*3/uL RBC (4.10-5.20) 10*6/uL Hgb (12.0-15.0) g/dL Hct (37.2-46.3) % MCV (80.0-97.0) fL MCH (27.0-32.0) pg MCHC (32.0-37.0) g/dL Plt Count (140-440) 10*3/uL MPV (9.5-12.2) fL Immature Gran % (Auto) % Neutrophils % (Manual) % Band Neuts % (Manual) % Lymphocytes % (Manual) % Monocytes % (Manual) % Eosinophils % (Manual) % Immature Gran # (0.00-0.04) 10*3/uL Neutrophils # (Manual) (1.3-7.7) k/uL Lymphocytes # (Manual) (1.0-4.8) k/uL Monocytes # (Manual) (0-1.0) k/uL Eosinophils # (Manual) (0-0.7) k/uL Nucleated RBCs (0-0) /100 WBC Manual Slide Review Poikilocytosis (manual Sodium (137-145) mmol/L Potassium (3.5-5.1) mmol/L Chloride (98-107) mmol/L Carbon Dioxide (22-30) mmol/L Anion Gap mmol/L BUN (7-17) mg/dL Creatinine (0.52-1.04) mg/dL Est GFR (CKD-EPI)AfAm (>60 ml/min/1.73 sqM) Est GFR (CKD-EPI)NonAf (>60 ml/min/1.73 sqM) Glucose (74-99) mg/dL Plasma Lactic Acid Sam (0.7-2.0) mmol/L Calcium (8.4-10.2) mg/dL Total Bilirubin (0.2-1.3) mg/dL AST (14-36) U/L ALT (4-34) U/L Alkaline Phosphatase (38-126) U/L Total Protein (6.3-8.2) g/dL Albumin (3.5-5.0) g/dL Amylase (30-110) U/L Lipase (23-300) U/L Urine Color Colorless Urine Appearance Clear (Clear) Urine pH 6.5 (5.0-8.0) Ur Specific [place] 1.023 (1.001-1.035) Urine Protein Trace H (Negative) Urine Glucose (UA) Negative (Negative) Urine Ketones Negative (Negative) Urine Blood Trace H (Negative) Urine Nitrite Negative (Negative) Urine Bilirubin Negative (Negative) Urine Urobilinogen <2.0 (<2.0) mg/dL Ur Leukocyte Esterase Negative (Negative) Urine RBC 4 (0-5) /hpf Urine WBC 1 (0-5) /hpf Ur Squamous Epith Cells <1 (0-4) /hpf Urine Mucus Rare H (None) /hpf Disposition Clinical Impression: Abdominal pain, Hematoma of abdominal wall Disposition: ADMITTED IP TO THIS HOSP Condition: Stable Referrals: Travon Marc DO [Primary Care Provider] - 1-2 days Decision to Admit Reason: Admit from EC Decision Date: 07/31/24 Decision Time: 12:09
[2024-07-31] MEDS: MORPHINE SULFATE 4 MG/ML SYRINGE IVP STA (07:21)
[2024-07-31] MEDS: IPRATROPIUM-ALBUTEROL 3 ML NEB INHALATION STA (07:37)
[2024-07-31 08:03] LABS: HGB 11.6 g/dL (12.0-15.0); MCHC 33.1 g/dL (32.0-37.0); MCV 93.6 fL (80.0-97.0); Mean Platelet Volume 9.6 fL (9.5-12.2); Platelet Count 260 10*3/uL (140-440); RBC 3.74 10*6/uL (4.10-5.20); RDW 13.9 % (11.5-14.5)
[2024-07-31 08:27] LABS: ALT 60 U/L (4-34); AST 40 U/L (14-36); African American GFR (CKD) >90 (>60 ml/min/1.73 sqM); Albumin 3.3 g/dL (3.5-5.0); Alkaline Phosphatase 137 U/L (38-126); Amylase 102 U/L (30-110); Anion Gap 5 mmol/L; Blood Urea Nitrogen 23 mg/dL (7-17); Carbon Dioxide 27 mmol/L (22-30); Chloride 106 mmol/L (98-107); Glucose 109 mg/dL (74-99); Lipase 187 U/L (23-300); Non-African American GFR(CKD) 79 (>60 ml/min/1.73 sqM); Potassium 3.5 mmol/L (3.5-5.1); Sodium 138 mmol/L (137-145); Total Bilirubin 1.1 mg/dL (0.2-1.3); Total Protein 5.7 g/dL (6.3-8.2)
--- NOTE | 2024-07-31 09:33 | CT ---
EXAMINATION TYPE: CT abdomen pelvis w con DATE OF EXAM: 07/31/2024 9:13 AM COMPARISON: None. CLINICAL INDICATION: Female, 74 years old with history of abdominal pain, Abdominal pain TECHNIQUE: Axial images were obtained from above the diaphragm to the pubic rami in the axial plane a t 5 mm thick sections. Reconstructed images are reviewed on the computer in the coronal plane. CONTRAST: 100 ml mL of Isovue 300. Study performed without Oral Contrast DLP: 754.2 mGycm, Automated exposure control for dose reduction was used. FINDINGS: Limited CT sections are obtained the lung bases. There is consolidation in the posterior medial righ t lung base. Correlate for pneumonia. Follow-up to clearing is recommended. There is milder infiltrat es in the left lung base. Small bilateral pleural effusions are present.. CT ABDOMEN: Liver: Normal Spleen: Normal Pancreas: There is a 1.9 cm hypodensity within the posterior body of the pancreas. Additional workup is recommended. Cyst and cystadenoma could be considered. Cystadenocarcinoma should be considered as well. MRI with contrast can be performed. Adrenal glands: The adrenal glands are normal. Gallbladder: Normal Kidneys: No masses are evident. No hydronephrosis is present. Small cortical renal cysts are presen t on the left kidney. A few cortical renal cysts are on the right kidney. Aorta: Vascular calcification is within the aorta. Mild fusiform prominence of the abdominal aorta i s present measuring 2.2 cm. Inferior vena cava: Normal. CT PELVIS: Within the left rectus abdominis muscle there is contrast with marked thickening along the anterior left abdomen. An acute intramuscular hematoma is likely present. This may measure up to 5. 1 x 7.7 cm. Small and subcutaneous air is adjacent. Report was called emergency room by Dr. Enriquez b y telephone at the time of interpretation Loops of bowel within the abdomen and pelvis are normal. Diverticular changes are within the sigmoid colon. No acute diverticulitis is evident. This study is without oral contrast limiting bowel eval uation Appendix: Normal as visualized. Urinary bladder: Normal. Genitourinary structures: Uterus and ovaries are not identified. Osseous structures: No suspicious lytic or sclerotic lesions. IMPRESSION: 1. Left rectus abdominis muscle acute hematoma anterior pelvic wall. Small amount of subcutaneous ai r is adjacent. 2. 1.9 cm hypodensity within the body of the pancreas. Additional workup with contrast MRI is recomme nded. Neoplasm is not excluded. 3. Diverticulosis without acute diverticulitis. 4. Bilateral lung base infiltrates. 5. Small bilateral pleural effusions [facility], , 07/31/2024 9:31 AM
[2024-07-31 09:44] LABS: Band Neutrophils % 1 %; Eosinophils # (M) 0.15 k/uL (0-0.7); Neutrophils % (M) 66 %; Nucleated Red Blood Cells 1 /100 WBC (0-0); Total Cells Counted 200
[2024-07-31 09:45] LABS: Lymphocytes # (M) 3.51 k/uL (1.0-4.8); Monocytes # (M) 1.53 k/uL (0-1.0); Neutrophils # (M) 10.23 k/uL (1.3-7.7); WBC 15.27 10*3/uL (4.50-10.00)
[2024-07-31 09:47] LABS: Poikilocytosis (M) Present
[2024-07-31 10:47] LABS: Appearance,Urine Clear (Clear); Bilirubin,Urine Negative (Negative); Blood,Urine Trace (Negative); Color,Urine Colorless; Glucose,Urine (UA) Negative (Negative); Ketones,Urine Negative (Negative); Leukocyte Esterase,Urine Negative (Negative); Mucus,Urine Rare /hpf; Nitrite,Urine Negative (Negative); PH, Urine 6.5 (5.0-8.0); Protein,Urine Trace (Negative); RBC,Urine 4 /hpf (0-5); Specific Gravity,Urine 1.023 (1.001-1.035); Squamous Epithelial Cell,Urine <1 /hpf (0-4); Urobilinogen,Urine <2.0 mg/dL (<2.0); WBC,Urine 1 /hpf (0-5)
[2024-07-31] MEDS ORDERED: MORPHINE SULFATE 4 MG/ML SYRINGE IV PRN (12:09)
[2024-07-31] MEDS ORDERED: NALOXONE 0.4 MG/ML 1 ML VIAL IV PRN (12:09)
[2024-07-31] MEDS ORDERED: ONDANSETRON 4 MG/2 ML VIAL IVP PRN (12:09)
[2024-07-31] MEDS: SODIUM CHLORIDE 0.9% 1,000 ML IV SCH (12:21)
[2024-07-31] MEDS ORDERED: ALBUTEROL NEBULIZED 2.5 MG/3 ML INHALATION PRN (14:17)
--- NOTE | 2024-07-31 14:28 | P.HPIM ---
History of Present Illness This is a pleasant 74 years old female with past medical history of multiple medical problems as below. Was recently discharged from this hospital for bilateral pneumonia and COPD. Also she found to have DVT of the left lower extremity, evaluated by hematology/oncology team without dialysis acute on chronic DVT and patient was started on Eliquis with plan for outpatient hypercoagulable workup and continue to coagulation for 3 months. Presents in 1 day with worsening lower abdominal pain more on the left side it was severe about 10/10. Nonspecific and partially improved with morphine. With no vomiting or diarrhea. Also she has some urinary difficulty and bladder scan showed urine retention was about 680 mL and [place] catheter was placed start Flomax, patient currently feels better She denies chest pain or dyspnea. No headache dizziness weakness or numbness. She still feels very tired and lethargic and pale. Patient used to smoke prior to previous hospitalization and currently she is on nicotine patch. No alcohol or illicit drugs. Patient is hemodynamically stable and afebrile. WBC is elevated at 15 but also she was on steroids. Hemoglobin 11.6. Rest of the BMP is unremarkable. Liver enzymes mildly elevated. Urine analysis is slightly abnormal. Lipase is negative. CT of the abdomen pelvis showing left rectus abdominal hematoma and 1.9 cm hypodensity in the body of the pancreas. Also there is bilateral pulmonary infiltrates of the bases with small bilateral pleural effusion. On reviewing home medication she was on Eliquis aspirin and Plavix which were all placed on hold for now Review of Systems Review of systems CONSTITUTIONAL: No fever, no malaise, no fatigue. HEENT: No recent visual problems or hearing problems. Denied any sore throat. CARDIOVASCULAR: No orthopnea, PND, no palpitations, no syncope. PULMONARY: No shortness of breath, no cough, no hemoptysis. GASTROINTESTINAL: No diarrhea, no nausea, no vomitin. Normoactive bowel sounds. NEUROLOGICAL: No headaches, no weakness, no numbness. HEMATOLOGICAL: Denies any bleeding or petechiae. GENITOURINARY: Denies any burning micturition, frequency, or urgency. MUSCULOSKELETAL/RHEUMATOLOGICAL: Denies any joint pain, swelling, or any muscle pain. ENDOCRINE: Denies any polyuria or polydipsia. Past Medical History Past Medical History: COPD, CVA/TIA, Deep Vein Thrombosis (DVT), Hyperlipidemia, Renal Disease, Seizure Disorder Additional Past Medical History / Comment(s): 2017 cva right side weakness and slow responses at times, short term memory impairment s/p stroke. osteoporosis, low BP, glaucoma, stage 3 chronic kidney disease, chronic sinusitis, left hand fracture s/p fall, stomach ulcers, syncope, dehydration, epilepsy over 25 years ago from last seizures, small hole in heart, 3 small brain aneurysms History of Any Multi-Drug Resistant Organisms: None Reported Past Surgical History: Adenoidectomy, Hysterectomy, Tonsillectomy Additional Past Surgical History / Comment(s): left hand surgey, Past Anesthesia/Blood Transfusion Reactions: No Reported Reaction Past Psychological History: No Psychological Hx Reported Smoking Status: Current every day smoker Past Alcohol Use History: None Reported Past Drug Use History: None Reported - Past Family History Mother Family Medical History: No Reported History Brother(s) Family Medical History: Cancer Additional Family Medical History / Comment(s): Lung CA, TB Medications and Allergies Home Medications Medication Instructions Recorded Confirmed Type Aspirin 81 mg PO DAILY 09/09/21 07/31/24 History Atorvastatin [Lipitor] 40 mg PO DAILY 09/09/21 07/31/24 History Clopidogrel [Plavix] 75 mg PO DAILY 09/09/21 07/31/24 History Latanoprost/Pf [Latanoprost 0.005% 1 drop BOTH EYES HS 09/09/21 07/31/24 History Eye Drop] Midodrine HCl [ProAmantine] 2.5 mg PO DAILY 09/09/21 07/31/24 History Calcium Carbonate/Vitamin D3 2 tab PO DAILY 07/25/24 07/31/24 History [Calcium 600 mg-Vit D3 5 mcg (200 unit)] Ubidecarenone [Coenzyme Q10] 200 mg PO DAILY 07/25/24 07/31/24 History Albuterol Inhaler [Ventolin Hfa 2 puff INHALATION RT-QID PRN 30 07/30/24 07/31/24 Rx Inhaler] Days #1 each Budesonide-Formot 160-4.5 Mcg 2 puff INHALATION RT-BID 30 Days 07/30/24 07/31/24 Rx [Symbicort 160-4.5 Mcg Inhaler] #1 each Ipratropium-Albuterol Nebulize 3 ml INHALATION QID #360 ml 04/09/25 04/10/25 Rx [Duoneb 0.5 mg-3 mg/3 ml Soln] Nicotine 14Mg/24Hr Patch [Habitrol] 1 patch TRANSDERM DAILY #30 patch 07/30/24 07/31/24 Rx Pantoprazole [Protonix] 40 mg PO BID 15 Days #30 tab 07/30/24 07/31/24 Rx cefuroxime axetiL [Ceftin] 500 mg PO BID 7 Days #14 tab 07/30/24 07/31/24 Rx predniSONE See Taper PO DIRECTED #30 tab 07/30/24 07/31/24 Rx Apixaban [Eliquis Starter Pack See Taper PO DIRECTED 07/31/24 07/31/24 History (for VTE)] Allergies Allergy/AdvReac Type Severity Reaction Status Date / Time Penicillins Allergy throat Verified 07/31/24 12:53 swelling Physical Exam Vitals: Vital Signs Temp Pulse Resp BP Pulse Ox 07/31/24 12:08 83 16 128/63 95 07/31/24 09:43 92 22 134/81 94 L 07/31/24 07:47 88 07/31/24 07:38 86 07/31/24 07:25 88 22 132/65 97 07/31/24 06:33 97.5 F L 87 18 126/73 95 Intake and Output 07/30/24 07/31/24 07/31/24 22:59 06:59 14:59 Output Total 800 Balance -800 Output: Urine 800 Straight 800 Other: Weight 64.41 kg GENERAL: The patient is alert and oriented x3, not in any acute distress. Well developed, well nourished. HEENT: Pupils are round and equally reacting to light. EOMI. No scleral icterus. No conjunctival pallor. Normocephalic, atraumatic. No pharyngeal erythema. No thyromegaly. CARDIOVASCULAR: S1 and S2 present. No murmurs, rubs, or gallops. PULMONARY: Chest is clear to auscultation, no wheezing , no crackles. -ABDOMEN: Soft, left lower quadrant tenderness with mild fullness er, nondistended, normoactive bowel sounds. No palpable organomegaly. MUSCULOSKELETAL: No joint swelling or deformity. EXTREMITIES: No cyanosis, clubbing, or pedal edema. NEUROLOGICAL: Gross neurological examination did not reveal any focal deficits. SKIN: No rashes. no petechiae. Results CBC & Chem 7: 07/31/24 06:58 07/31/24 06:58 Labs: Abnormal Lab Results - Last 24 Hours (Table) 07/31/24 07/31/24 07/31/24 Range/Units 06:58 06:58 10:15 WBC 15.27 H (4.50-10.00) 10*3/uL RBC 3.74 L (4.10-5.20) 10*6/uL Hgb 11.6 L (12.0-15.0) g/dL Hct 35.0 L (37.2-46.3) % Immature Gran # 1.74 H (0.00-0.04) 10*3/uL Neutrophils # (Manual) 10.23 H (1.3-7.7) k/uL Monocytes # (Manual) 1.53 H (0-1.0) k/uL Nucleated RBCs 1 H (0-0) /100 WBC BUN 23 H (7-17) mg/dL Glucose 109 H (74-99) mg/dL Calcium 8.0 L (8.4-10.2) mg/dL AST 40 H (14-36) U/L ALT 60 H (4-34) U/L Alkaline Phosphatase 137 H (38-126) U/L Total Protein 5.7 L (6.3-8.2) g/dL Albumin 3.3 L (3.5-5.0) g/dL Urine Protein Trace H (Negative) Urine Blood Trace H (Negative) Urine Mucus Rare H (None) /hpf Assessment and Plan Assessment: Left rectal sheath hematoma 1.9 cm hypodensity in the body of the pancreas Abdominal pain secondary to above Recent history of acute on chronic left DVT. Recent history of bilateral lower lobe pneumonia Recent history of acute COPD exacerbation currently there is no exacerbation and breathing is quiet. Generalized weakness and lethargy Chronic kidney disease stage III History of seizure disorder History of CVA in 2017 History of [employer] aneurysm Glaucoma Osteoporosis Plan: Hold Eliquis and aspirin and Plavix Consult hematology/oncology team. Continue with pain medication. Surgery team consult GI team consult Patient and daughter at bedside were informed about the problems including the possible pancreatic mass. Labs and medication were reviewed.. Continue same treatment. Continue with symptomatic treatment. Resume home medication. Monitor labs and vitals. DVT and GI prophylaxis. Further recommendations as per clinical course of the patient DVT prophylaxis: No anticoagulation in view of acute hematoma GI Prophylaxis: Pepcid PT/OT: Pending Prognosis is guarded
[2024-07-31] MEDS: predniSONE 10 MG TAB PO SCH (14:42)
[2024-07-31] MEDS: IPRATROPIUM-ALBUTEROL 3 ML NEB INHALATION SCH (15:33)
--- NOTE | 2024-07-31 18:10 | P.CONS ---
History of Present Illness - Reason for Consult Consult date: 07/31/24 abdominal wall hematoma Requesting physician: Neris Engle - Chief Complaint Abdominal pain - History of Present Illness This is a pleasant 74-year-old female with past medical history including COPD, CVA/TIA with memory impairment, DVT, hyperlipidemia, chronic kidney disease, seizure disorder, history of brain aneurysm and recent admission for pneumonia. Patient was also recently diagnosed with DVT started on Eliquis. Apparently patient was at home and was coughing followed by complaints of lower abdominal pain was a severe onset. Patient was brought in for further evaluation. Patient is currently lethargic secondary to IV pain medication. Her daughter is at the bedside. General surgery has been consulted for abdominal hematoma as well as gastroenterology however patient was also noted to have 1.9 hypodensity within the body of the pancreas. Likely gastroenterology was called salted actually for this reason. Patient's daughter states that she believes that she has had known hypodense lesion and had been seen in the outpatient setting with no further required workup. This was likely incidental finding. Patient does have some mild LFT elevation as well noted. Review of Systems REVIEW OF SYSTEMS: CARDIOPULMONARY: No chest pain or shortness of breath. Cough. Gastrointestinal: Abdominal pain, mostly left lower abdomen. No nausea or vomiting. No hematemesis, coffee-ground emesis. No rectal bleeding, or melena. GENITOURINARY: No dysuria or hematuria. MUSCULOSKELETAL: Reports normal range of motion., Joint pain. SKIN: No rashes. No jaundice. ENDOCRINE: No chills, fevers. No excessive weight gain or loss. No polydipsia or polyuria. PSYCHIATRIC: Unremarkable. NEUROLOGY: No change in mental status. Denies dizziness, headache. ENT: Vision unremarkable. CONSTITUTIONAL: No recent weight loss. No fever, chills, night sweats. Past Medical History Past Medical History: COPD, CVA/TIA, Deep Vein Thrombosis (DVT), Hyperlipidemia, Renal Disease, Seizure Disorder Additional Past Medical History / Comment(s): 2017 cva right side weakness and slow responses at times, short term memory impairment s/p stroke. osteoporosis, low BP, glaucoma, stage 3 chronic kidney disease, chronic sinusitis, left hand fracture s/p fall, stomach ulcers, syncope, dehydration, epilepsy over 25 years ago from last seizures, small hole in heart, 3 small brain aneurysms History of Any Multi-Drug Resistant Organisms: None Reported Past Surgical History: Adenoidectomy, Hysterectomy, Tonsillectomy Additional Past Surgical History / Comment(s): left hand surgey, Past Anesthesia/Blood Transfusion Reactions: No Reported Reaction Past Psychological History: No Psychological Hx Reported Smoking Status: Current every day smoker Past Alcohol Use History: None Reported Past Drug Use History: None Reported - Past Family History Mother Family Medical History: No Reported History Brother(s) Family Medical History: Cancer Additional Family Medical History / Comment(s): Lung CA, TB Medications and Allergies Home Medications Medication Instructions Recorded Confirmed Type Aspirin 81 mg PO DAILY 09/09/21 07/31/24 History Atorvastatin [Lipitor] 40 mg PO DAILY 09/09/21 07/31/24 History Clopidogrel [Plavix] 75 mg PO DAILY 09/09/21 07/31/24 History Latanoprost/Pf [Latanoprost 0.005% 1 drop BOTH EYES HS 09/09/21 07/31/24 History Eye Drop] Midodrine HCl [ProAmantine] 2.5 mg PO DAILY 09/09/21 07/31/24 History Calcium Carbonate/Vitamin D3 2 tab PO DAILY 07/25/24 07/31/24 History [Calcium 600 mg-Vit D3 5 mcg (200 unit)] Ubidecarenone [Coenzyme Q10] 200 mg PO DAILY 07/25/24 07/31/24 History Albuterol Inhaler [Ventolin Hfa 2 puff INHALATION RT-QID PRN 30 07/30/24 5 Rx Inhaler] Days #1 each Budesonide-Formot 160-4.5 Mcg 2 puff INHALATION RT-BID 30 Days 07/30/24 07/31/24 Rx [Symbicort 160-4.5 Mcg Inhaler] #1 each Ipratropium-Albuterol Nebulize 3 ml INHALATION QID #360 ml 07/30/24 07/31/24 Rx [Duoneb 0.5 mg-3 mg/3 ml Soln] Nicotine 14Mg/24Hr Patch [Habitrol] 1 patch TRANSDERM DAILY #30 patch 07/30/24 07/31/24 Rx Pantoprazole [Protonix] 40 mg PO BID 15 Days #30 tab 07/30/24 07/31/24 Rx cefuroxime axetiL [Ceftin] 500 mg PO BID 7 Days #14 tab 07/30/24 07/31/24 Rx predniSONE See Taper PO DIRECTED #30 tab 07/30/24 07/31/24 Rx Apixaban [Eliquis Starter Pack See Taper PO DIRECTED 07/31/24 07/31/24 History (for VTE)] Allergies Allergy/AdvReac Type Severity Reaction Status Date / Time Penicillins Allergy throat Verified 07/31/24 12:53 swelling Physical Exam Vitals: Vital Signs Temp Pulse Resp BP Pulse Ox 07/31/24 12:08 83 16 128/63 95 07/31/24 09:43 92 22 134/81 94 L 07/31/24 07:47 88 07/31/24 07:38 86 07/31/24 07:25 88 22 132/65 97 07/31/24 06:33 97.5 F L 87 18 126/73 95 Intake and Output 07/30/24 07/31/24 07/31/24 22:59 06:59 14:59 Output Total 800 Balance -800 Output: Urine 800 Straight 800 Other: Weight 64.41 kg General appearance: The patient is alert, drowsy but arousable, appears in no acute distress. HET: Head is normocephalic and atraumatic. Conjunctiva pink. Sclera anicteric. Neck: Supple without lymphadenopathy. Trachea midline. Heart: Regular. Lungs: Equal expansion, normal respiratory effort. Abdomen: Soft, lower abdominal tenderness, nondistended. Skin: No rashes. No jaundice. Extremities: Normal skin color and turgor. No pedal edema. Neurological: Very drowsy secondary to medication likely. But arousable. Results CBC & Chem 7: 07/31/24 06:58 07/31/24 06:58 Labs: Abnormal Lab Results - Last 24 Hours (Table) 07/31/24 07/31/24 07/31/24 Range/Units 06:58 06:58 10:15 WBC 15.27 H (4.50-10.00) 10*3/uL RBC 3.74 L (4.10-5.20) 10*6/uL Hgb 11.6 L (12.0-15.0) g/dL Hct 35.0 L (37.2-46.3) % Immature Gran # 1.74 H (0.00-0.04) 10*3/uL Neutrophils # (Manual) 10.23 H (1.3-7.7) k/uL Monocytes # (Manual) 1.53 H (0-1.0) k/uL Nucleated RBCs 1 H (0-0) /100 WBC BUN 23 H (7-17) mg/dL Glucose 109 H (74-99) mg/dL Calcium 8.0 L (8.4-10.2) mg/dL AST 40 H (14-36) U/L ALT 60 H (4-34) U/L Alkaline Phosphatase 137 H (38-126) U/L Total Protein 5.7 L (6.3-8.2) g/dL Albumin 3.3 L (3.5-5.0) g/dL Urine Protein Trace H (Negative) Urine Blood Trace H (Negative) Urine Mucus Rare H (None) /hpf Comments: CT abdomen pelvis with contrast reports left rectus abdominis muscle acute hematoma anterior pelvic wall. Small amount of subcutaneous air is adjacent. 1.9 cm hypodensity within the body of the pancreas. Additional workup with contrast MRI is recommended. Neoplasm is not excluded. Diverticulosis without acute diverticulitis. Bilateral lung base infiltrates. Small bilateral pleural effusions. Assessment and Plan (1) Lesion of pancreas Narrative/Plan: 74-year-old female with multiple comorbidities recently put on Eliquis for DVT and treated for pneumonia was coughing and started with acute lower abdominal pain mostly on the left side. Presented to the emergency department found to have . Left rectus abdominis muscle acute hematoma. Also finding on's CAT scan of the abdomen was a 1.9 cm hypodensity within the body of the pancreas. This is likely incidental finding and sounds to be known finding that patient has had worked up in the past according to the daughter. No further workup at this time. Recommend treatment for current abdominal wall hematoma with re commendations from general surgery. Recommend outpatient follow-up with gastroenterology can further investigate pancreas at that time. Patient and daughter agreeable. Current Visit: Yes Status: Acute Code(s): K86.9 - DISEASE OF PANCREAS, UNSPECIFIED SNOMED Code(s): 4986110 (2) Abdominal pain Narrative/Plan: Abdominal pain in lower abdomen mostly left lower abdomen likely secondary to abdominal wall hematoma. Current Visit: Yes Status: Acute Code(s): R10.9 - UNSPECIFIED ABDOMINAL PAIN SNOMED Code(s): 85048545 (3) Hematoma of abdominal wall Narrative/Plan: General Surgery following for abdominal wall hematoma. Continue with their recommendations. Current Visit: Yes Status: Acute Code(s): S30.1XXA - CONTUSION OF ABDOMINAL WALL, INITIAL ENCOUNTER SNOMED Code(s): 240468356 (4) Deep vein thrombosis (DVT) of popliteal vein of left lower extremity Current Visit: No Status: Acute Priority: High Code(s): I82.432 - ACUTE EMBOLISM AND THROMBOSIS OF LEFT POPLITEAL VEIN SNOMED Code(s): 878149599 (5) Pneumonia Current Visit: No Status: Acute Code(s): J18.9 - PNEUMONIA, UNSPECIFIED ORGANISM SNOMED Code(s): 714667690 (6) Elevated LFTs Narrative/Plan: Mild elevation of LFTs. Recommend outpatient follow-up Current Visit: Yes Status: Acute Code(s): R79.89 - OTHER SPECIFIED ABNORMAL FINDINGS OF BLOOD CHEMISTRY SNOMED Code(s): 355482130 Plan: 1. Continue symptomatic and supportive care 2. Continue with recommendations from general surgery for abdominal wall hematoma 3. According to patient's daughter has history of known workup for the pancreas in the past with no recommendation for further testing 4. No further workup from gastroenterology at this time. Recommend outpatient follow-up and will further investigate pancreas at that time 5. Continue with pain management 6. Rest of medical management per primary medical team Thank you for this consultation, we will sign off at this time. Dr. Andres Sousa I agree with the dictator's note, documented as a scribe by Keyona Olivares.
[2024-07-31] MEDS: KETOROLAC 15 MG/ML 1 ML VIAL IVP PRN (20:13)
[2024-07-31] MEDS: SYMBICORT 160-4.5 MCG INHALER INHALATION SCH (20:14)
[2024-07-31] MEDS: PANTOPRAZOLE 40 MG TABLET PO SCH (20:16)
[2024-07-31] MEDS: LATANOPROST 0.005% OPHTH DROPS 2.5 ML BTL BOTH EYES SCH (22:14)
[2024-08-01 03:36] LABS: ALT 47 U/L (4-34); AST 27 U/L (14-36); African American GFR (CKD) 81 (>60 ml/min/1.73 sqM); Albumin 2.9 g/dL (3.5-5.0); Alkaline Phosphatase 75 U/L (38-126); Anion Gap 7 mmol/L; Blood Urea Nitrogen 32 mg/dL (7-17); Calcium 7.7 mg/dL (8.4-10.2); Carbon Dioxide 25 mmol/L (22-30); Chloride 105 mmol/L (98-107); Glucose 123 mg/dL (74-99); Non-African American GFR(CKD) 71 (>60 ml/min/1.73 sqM); Potassium 3.4 mmol/L (3.5-5.1); Sodium 137 mmol/L (137-145); Total Bilirubin 0.7 mg/dL (0.2-1.3)
[2024-08-01 04:56] LABS: MCH 30.9 pg (27.0-32.0); MCHC 32.7 g/dL (32.0-37.0); MCV 94.4 fL (80.0-97.0); Mean Platelet Volume 10.1 fL (9.5-12.2); Platelet Count 209 10*3/uL (140-440); RBC 2.33 10*6/uL (4.10-5.20); RDW 14.1 % (11.5-14.5); WBC 14.23 10*3/uL (4.50-10.00)
[2024-08-01 05:28] LABS: HGB 7.2 g/dL (12.0-15.0)
[2024-08-01 06:48] LABS: Anisocytosis (M) Present; Band Neutrophils % 3 %; Lymphocytes # (M) 1.57 k/uL (1.0-4.8); Monocytes # (M) 0.14 k/uL (0-1.0); Neutrophils # (M) 12.52 k/uL (1.3-7.7); Neutrophils % (M) 85 %; Nucleated Red Blood Cells 0 /100 WBC (0-0); Total Cells Counted 100
[2024-08-01 06:49] LABS: Polychromasia Present
[2024-08-01] MEDS: MIDODRINE 5 MG TAB PO SCH (09:06)
[2024-08-01] MEDS: POTASSIUM CHLORIDE ER 20 MEQ TAB.ER PO STA (09:06)
[2024-08-01] MEDS: ATORVASTATIN 40 MG TAB PO SCH (09:07)
[2024-08-01] MEDS: CALCIUM CARB-VIT D 500 MG-5 MCG TAB PO SCH (09:07)
--- NOTE | 2024-08-01 12:26 | P.GSCN ---
History of Present Illness Consult date: 08/01/24 Reason for Consult: IVC filter placement Requesting physician: Swapnil Stephens History of present illness: This a pleasant 74-year-old female who is recent hospitalized for pneumonia and provoked acute left lower extremity deep vein thrombosis. Vascular surgery had actually seen her during her last hospitalization for her left lower extremity DVT. She was also being followed by hematology who had started her on Eliquis starter pack for lower extremity DVT. Patient had been taking her anticoagulation. She was discharged home and was coughing followed by acute onset lower abdominal pain greatest on the left side. She came into the emergency department and had a CT of the abdomen pelvis noted with a left rectus muscle acute hematoma. Initial hemoglobin on admission was 11.7 with a drop to 7.2 today. General surgery following for abdominal hematoma and are recommending anticoagulation be held and IVC filter be placed secondary to acute lower extremity DVT with inability to tolerate anticoagulation. Vascular surgery consulted for IVC filter placement. Patient currently denies any shortness of breath chest pain or nausea or vomiting. Abdominal pain is better controlled. She has 2 units of blood ordered. Does have a history of a previous left lower extremity DVT and pulmonary embolism. Review of Systems A 14 point review systems was completed all pertinent positives and negatives as stated in the HPI. Past Medical History Past Medical History: COPD, CVA/TIA, Deep Vein Thrombosis (DVT), Hyperlipidemia, Renal Disease, Seizure Disorder Additional Past Medical History / Comment(s): 2017 cva right side weakness and slow responses at times, short term memory impairment s/p stroke. osteoporosis, low BP, glaucoma, stage 3 chronic kidney disease, chronic sinusitis, left hand fracture s/p fall, stomach ulcers, syncope, dehydration, epilepsy over 25 years ago from last seizures, small hole in heart, 3 small brain aneurysms History of Any Multi-Drug Resistant Organisms: None Reported Past Surgical History: Adenoidectomy, Hysterectomy, Tonsillectomy Additional Past Surgical History / Comment(s): left hand surgey, Past Anesthesia/Blood Transfusion Reactions: No Reported Reaction Smoking Status: Former smoker - Past Family History Mother Family Medical History: No Reported History Brother(s) Family Medical History: Cancer Additional Family Medical History / Comment(s): Lung CA, TB Medications and Allergies Home Medications Medication Instructions Recorded Confirmed Type Aspirin 81 mg PO DAILY 09/09/21 07/31/24 History Atorvastatin [Lipitor] 40 mg PO DAILY 09/09/21 07/31/24 History Clopidogrel [Plavix] 75 mg PO DAILY 09/09/21 07/31/24 History Latanoprost/Pf [Latanoprost 0.005% 1 drop BOTH EYES HS 09/09/21 07/31/24 History Eye Drop] Midodrine HCl [ProAmantine] 2.5 mg PO DAILY 09/09/21 07/31/24 History Calcium Carbonate/Vitamin D3 2 tab PO DAILY 07/25/24 07/31/24 History [Calcium 600 mg-Vit D3 5 mcg (200 unit)] Ubidecarenone [Coenzyme Q10] 200 mg PO DAILY 07/25/24 07/31/24 History Albuterol Inhaler [Ventolin Hfa 2 puff INHALATION RT-QID PRN 30 07/30/24 07/31/24 Rx Inhaler] Days #1 each Budesonide-Formot 160-4.5 Mcg 2 puff INHALATION RT-BID 30 Days 07/30/24 07/31/24 Rx [Symbicort 160-4.5 Mcg Inhaler] #1 each Ipratropium-Albuterol Nebulize 3 ml INHALATION QID #360 ml 07/30/24 07/31/24 Rx [Duoneb 0.5 mg-3 mg/3 ml Soln] Nicotine 14Mg/24Hr Patch [Habitrol] 1 patch TRANSDERM DAILY #30 patch 07/30/24 07/31/24 Rx Pantoprazole [Protonix] 40 mg PO BID 15 Days #30 tab 07/30/24 07/31/24 Rx cefuroxime axetiL [Ceftin] 500 mg PO BID 7 Days #14 tab 07/30/24 07/31/24 Rx predniSONE See Taper PO DIRECTED #30 tab 07/30/24 07/31/24 Rx Apixaban [Eliquis Starter Pack See Taper PO DIRECTED 07/31/24 07/31/24 History (for VTE)] Allergies Allergy/AdvReac Type Severity Reaction Status Date / Time Penicillins Allergy throat Verified 07/31/24 12:53 swelling Surgical - Exam Vital Signs Temp Pulse Resp BP Pulse Ox 97.5 F L 87 18 126/73 95 07/31/24 06:33 07/31/24 06:33 07/31/24 06:33 07/31/24 06:33 07/31/24 06:33 General appearance: The patient is alert, oriented, appears in no acute distress. HET: Head is normocephalic and atraumatic. Pupils are equal and reactive. Neck: Supple. Heart: Regular. Lungs: Equal expansion, normal respiratory effort. Abdomen: Soft, lower abdominal tenderness, nondistended. Extremities: Normal skin color and turgor. No lower extremity edema. Neurological: No focal deficits. Strength and sensation are grossly intact. Results - Labs 08/01/24 03:47 08/01/24 02:55 Abnormal Lab Results - Last 24 Hours (Table) 08/01/24 08/01/24 08/01/24 Range/Units 02:55 03:47 03:48 WBC 14.23 H (4.50-10.00) 10*3/uL RBC 2.33 L (4.10-5.20) 10*6/uL Hgb 7.2 L D (12.0-15.0) g/dL Hct 22.0 L (37.2-46.3) % Immature Gran # 1.20 H (0.00-0.04) 10*3/uL Neutrophils # (Manual) 12.52 H (1.3-7.7) k/uL Potassium 3.4 L (3.5-5.1) mmol/L BUN 32 H (7-17) mg/dL Glucose 123 H (74-99) mg/dL Calcium 7.7 L (8.4-10.2) mg/dL ALT 47 H (4-34) U/L Total Protein 5.0 L (6.3-8.2) g/dL Albumin 2.9 L (3.5-5.0) g/dL Crossmatch See Detail Diabetes panel 08/01/24 Range/Units 02:55 Sodium 137 (137-145) mmol/L Potassium 3.4 L (3.5-5.1) mmol/L Chloride 105 (98-107) mmol/L Carbon Dioxide 25 (22-30) mmol/L BUN 32 H (7-17) mg/dL Creatinine 0.83 (0.52-1.04) mg/dL Glucose 123 H (74-99) mg/dL Calcium 7.7 L (8.4-10.2) mg/dL AST 27 (14-36) U/L ALT 47 H (4-34) U/L Alkaline Phosphatase 75 (38-126) U/L Total Protein 5.0 L (6.3-8.2) g/dL Albumin 2.9 L (3.5-5.0) g/dL Calcium panel 08/01/24 Range/Units 02:55 Calcium 7.7 L (8.4-10.2) mg/dL Albumin 2.9 L (3.5-5.0) g/dL Pituitary panel 08/01/24 Range/Units 02:55 Sodium 137 (137-145) mmol/L Potassium 3.4 L (3.5-5.1) mmol/L Chloride 105 (98-107) mmol/L Carbon Dioxide 25 (22-30) mmol/L BUN 32 H (7-17) mg/dL Creatinine 0.83 (0.52-1.04) mg/dL Glucose 123 H (74-99) mg/dL Calcium 7.7 L (8.4-10.2) mg/dL Adrenal panel 08/01/24 Range/Units 02:55 Sodium 137 (137-145) mmol/L Potassium 3.4 L (3.5-5.1) mmol/L Chloride 105 (98-107) mmol/L Carbon Dioxide 25 (22-30) mmol/L BUN 32 H (7-17) mg/dL Creatinine 0.83 (0.52-1.04) mg/dL Glucose 123 H (74-99) mg/dL Calcium 7.7 L (8.4-10.2) mg/dL Total Bilirubin 0.7 (0.2-1.3) mg/dL AST 27 (14-36) U/L ALT 47 H (4-34) U/L Alkaline Phosphatase 75 (38-126) U/L Total Protein 5.0 L (6.3-8.2) g/dL Albumin 2.9 L (3.5-5.0) g/dL - Imaging Comments: CAT scan abdomen pelvis with contrast reports left rectus abdominis muscle acute hematoma anterior pelvic wall. Small amount of subcutaneous air is adjacent. 1.9 cm hypodensity within the body of the pancreas. Additional workup with contrast MRI is recommended. Neoplasm is not excluded. Diverticulosis without acute diverticulitis. Bilateral lung base infiltrates. Small bilateral pleural effusions. Assessment and Plan Assessment: 1. Acute left lower extremity popliteal deep vein thrombosis unable to be anticoagulated 2. Left rectus abdominis muscle acute hematoma 3. Acute blood loss anemia 4. Pneumonia 5. History of previous DVT and pulmonary embolism Plan: 1. Agree with holding anticoagulation secondary to abdominal muscle hematoma with acute blood loss anemia 2. Keep n.p.o. 3. IVC filter placement discussed with patient and family at the bedside. They are agreeable to proceed. Tentative plan for IVC filter placement this afternoon 4. Continue with recommendations from general surgery 5. Continue with recommendations from hematology Thank you for this consultation. The impression and plan of care has been dictated as directed. I performed a history and examination of this patient, discussed the same with the dictator. I agree with the dictator's note ,documented as a scribe. Any additional findings or plans will be noted.
[2024-08-01 12:29] LABS: HCT 25.5 % (37.2-46.3); HGB 8.6 g/dL (12.0-15.0); MCH 30.9 pg (27.0-32.0); MCHC 33.7 g/dL (32.0-37.0); MCV 91.7 fL (80.0-97.0); Mean Platelet Volume 9.8 fL (9.5-12.2); Platelet Count 213 10*3/uL (140-440); RBC 2.78 10*6/uL (4.10-5.20); RDW 14.8 % (11.5-14.5); WBC 14.39 10*3/uL (4.50-10.00)
[2024-08-01] MEDS: LIDOCAINE 1% INJ 10MG/ML (20 ML MDV) SQ ONE (13:42)
[2024-08-01] MEDS: MIDAZOLAM 2 MG/2 ML VIAL IVP ONE (13:42)
[2024-08-01] MEDS: IOPAMIDOL-370 100ML BTL INJ ONE (13:53)
--- NOTE | 2024-08-01 14:24 | P.GSCN ---
History of Present Illness Consult date: 08/01/24 History of present illness: CHIEF COMPLAINT: Abdominal pain HISTORY OF PRESENT ILLNESS: This is a 74-year-old female who presented to the hospital with complaints of abdominal pain in the suprapubic area. Patient had recent hospitalization for pneumonia and COPD exacerbation. Patient reports that she was discharged from the hospital and was only able to stay home for about 12 hours before she returned with complaints of suprapubic abdominal pain. Patient had been diagnosed with a DVT in the left leg during that admission and had been receiving Lovenox injections for her DVT. Patient reports that she did not get a chance to start the Eliquis at home. Hemoglobin on admission was 11.6 did drop to 7.2. CT scan abdomen and pelvis had reported a left rectus sheath hematoma. She had been hypotensive and she is to be transfused with 2 units of blood. Patient seen and examined with Dr. Stephens PAST MEDICAL HISTORY: COPD, CVA, Deep Vein Thrombosis (DVT), Hyperlipidemia, Renal Disease, Seizure Disorder, chronic kidney disease PAST SURGICAL HISTORY: Adenoidectomy, Hysterectomy, Tonsillectomy MEDICATIONS: See below ALLERGIES: See below SOCIAL HISTORY: No illicit drug use. REVIEW OF SYSTEMS: CONSTITUTIONAL: Denies fever or chills. HEENT: Denies blurred vision, vision changes, or eye pain. Denies hemoptysis CARDIOVASCULAR: Denies chest pain or pressure. RESPIRATORY: No shortness of breath. GASTROINTESTINAL: See HPI for pertinent findings HEMATOLOGIC: Denies bleeding disorders. GENITOURINARY: Denies any blood in urine or increased urinary frequency. SKIN: Denies pruitis. Denies rash. PHYSICAL EXAM: VITAL SIGNS: Reviewed GENERAL: Well-developed in no acute distress. HEENT: No sclera icterus. Extraocular movements grossly intact. Moist buccal mucosa. Head is atraumatic, normocephalic. No nasal drainage. ABDOMEN: Soft. Nondistended. Tenderness palpation of the suprapubic area. She does have some bruising noted on the left lower abdomen. NEUROLOGIC: Alert and oriented. Cranial nerves II through XII grossly intact. LABORATORY DATA: WBC 14.39 Hgb 11.6 down to 7.2 with repeat hemoglobin 8.6 platelets 213 Sodium 137 potassium 3.4 creatinine 0.83 IMAGING: CT scan abdomen pelvis left rectus abdominis muscle acute hematoma anterior pelvic wall. Small amount of subcutaneous air is adjacent. 1.9 cm hypodensity within the body of the pancreas. Diverticulosis. Bilateral lung base infiltrates. Small bilateral pleural effusions. ASSESSMENT: 1. Left rectus sheath hematoma PLAN: - Keep all anticoagulation on hold - Agree with blood transfusion - Continue to monitor hemoglobin - Consult vascular surgery for IVC filter placement - Agree with hematology consult - Continue supportive care -Replace potassium - No surgical intervention planned Physician Ordnance Artificer Helper note has been reviewed by physician. Signing provider agrees with the documented findings, assessment, and plan of care. Past Medical History Past Medical History: COPD, CVA/TIA, Deep Vein Thrombosis (DVT), Hyperlipidemia, Renal Disease, Seizure Disorder Additional Past Medical History / Comment(s): 2017 cva right side weakness and slow responses at times, short term memory impairment s/p stroke. osteoporosis, low BP, glaucoma, stage 3 chronic kidney disease, chronic sinusitis, left hand fracture s/p fall, stomach ulcers, syncope, dehydration, epilepsy over 25 years ago from last seizures, small hole in heart, 3 small brain aneurysms History of Any Multi-Drug Resistant Organisms: None Reported Past Surgical History: Adenoidectomy, Hysterectomy, Tonsillectomy Additional Past Surgical History / Comment(s): left hand surgey, Past Anesthesia/Blood Transfusion Reactions: No Reported Reaction Smoking Status: Former smoker - Past Family History Mother Family Medical History: No Reported History Brother(s) Family Medical History: Cancer Additional Family Medical History / Comment(s): Lung CA, TB Medications and Allergies Home Medications Medication Instructions Recorded Confirmed Type Aspirin 81 mg PO DAILY 09/09/21 07/31/24 History Atorvastatin [Lipitor] 40 mg PO DAILY 09/09/21 07/31/24 History Clopidogrel [Plavix] 75 mg PO DAILY 09/09/21 07/31/24 History Latanoprost/Pf [Latanoprost 0.005% 1 drop BOTH EYES HS 09/09/21 07/31/24 History Eye Drop] Midodrine HCl [ProAmantine] 2.5 mg PO DAILY 09/09/21 07/31/24 History Calcium Carbonate/Vitamin D3 2 tab PO DAILY 07/25/24 07/31/24 History [Calcium 600 mg-Vit D3 5 mcg (200 unit)] Ubidecarenone [Coenzyme Q10] 200 mg PO DAILY 07/25/24 07/31/24 History Albuterol Inhaler [Ventolin Hfa 2 puff INHALATION RT-QID PRN 30 07/30/24 07/31/24 Rx Inhaler] Days #1 each Budesonide-Formot 160-4.5 Mcg 2 puff INHALATION RT-BID 30 Days 07/30/24 07/31/24 Rx [Symbicort 160-4.5 Mcg Inhaler] #1 each Ipratropium-Albuterol Nebulize 3 ml INHALATION QID #360 ml 07/30/24 07/31/24 Rx [Duoneb 0.5 mg-3 mg/3 ml Soln] Nicotine 14Mg/24Hr Patch [Habitrol] 1 patch TRANSDERM DAILY #30 patch 07/30/24 07/31/24 Rx Pantoprazole [Protonix] 40 mg PO BID 15 Days #30 tab 07/30/24 07/31/24 Rx cefuroxime axetiL [Ceftin] 500 mg PO BID 7 Days #14 tab 07/30/24 07/31/24 Rx predniSONE See Taper PO DIRECTED #30 tab 07/30/24 07/31/24 Rx Apixaban [Eliquis Starter Pack See Taper PO DIRECTED 07/31/24 07/31/24 History (for VTE)] Allergies Allergy/AdvReac Type Severity Reaction Status Date / Time Penicillins Allergy throat Verified 07/31/24 12:53 swelling Surgical - Exam Vital Signs Temp Pulse Resp BP Pulse Ox 97.5 F L 87 18 126/73 95 07/31/24 06:33 07/31/24 06:33 07/31/24 06:33 07/31/24 06:33 07/31/24 06:33 Results - Labs 08/01/24 11:37 08/01/24 02:55 Abnormal Lab Results - Last 24 Hours (Table) 07/31/24 08/01/24 08/01/24 Range/Units 10:15 02:55 03:47 WBC 14.23 H (4.50-10.00) 10*3/uL RBC 2.33 L (4.10-5.20) 10*6/uL Hgb 7.2 L D (12.0-15.0) g/dL Hct 22.0 L (37.2-46.3) % Immature Gran # 1.20 H (0.00-0.04) 10*3/uL Neutrophils # (Manual) 12.52 H (1.3-7.7) k/uL Potassium 3.4 L (3.5-5.1) mmol/L BUN 32 H (7-17) mg/dL Glucose 123 H (74-99) mg/dL Calcium 7.7 L (8.4-10.2) mg/dL ALT 47 H (4-34) U/L Total Protein 5.0 L (6.3-8.2) g/dL Albumin 2.9 L (3.5-5.0) g/dL Urine Protein Trace H (Negative) Urine Blood Trace H (Negative) Urine Mucus Rare H (None) /hpf Crossmatch 08/01/24 Range/Units 03:48 WBC (4.50-10.00) 10*3/uL RBC (4.10-5.20) 10*6/uL Hgb (12.0-15.0) g/dL Hct (37.2-46.3) % Immature Gran # (0.00-0.04) 10*3/uL Neutrophils # (Manual) (1.3-7.7) k/uL Potassium (3.5-5.1) mmol/L BUN (7-17) mg/dL Glucose (74-99) mg/dL Calcium (8.4-10.2) mg/dL ALT (4-34) U/L Total Protein (6.3-8.2) g/dL Albumin (3.5-5.0) g/dL Urine Protein (Negative) Urine Blood (Negative) Urine Mucus (None) /hpf Crossmatch See Detail Diabetes panel 08/01/24 Range/Units 02:55 Sodium 137 (137-145) mmol/L Potassium 3.4 L (3.5-5.1) mmol/L Chloride 105 (98-107) mmol/L Carbon Dioxide 25 (22-30) mmol/L BUN 32 H (7-17) mg/dL Creatinine 0.83 (0.52-1.04) mg/dL Glucose 123 H (74-99) mg/dL Calcium 7.7 L (8.4-10.2) mg/dL AST 27 (14-36) U/L ALT 47 H (4-34) U/L Alkaline Phosphatase 75 (38-126) U/L Total Protein 5.0 L (6.3-8.2) g/dL Albumin 2.9 L (3.5-5.0) g/dL Calcium panel 08/01/24 Range/Units 02:55 Calcium 7.7 L (8.4-10.2) mg/dL Albumin 2.9 L (3.5-5.0) g/dL Pituitary panel 08/01/24 Range/Units 02:55 Sodium 137 (137-145) mmol/L Potassium 3.4 L (3.5-5.1) mmol/L Chloride 105 (98-107) mmol/L Carbon Dioxide 25 (22-30) mmol/L BUN 32 H (7-17) mg/dL Creatinine 0.83 (0.52-1.04) mg/dL Glucose 123 H (74-99) mg/dL Calcium 7.7 L (8.4-10.2) mg/dL Adrenal panel 08/01/24 Range/Units 02:55 Sodium 137 (137-145) mmol/L Potassium 3.4 L (3.5-5.1) mmol/L Chloride 105 (98-107) mmol/L Carbon Dioxide 25 (22-30) mmol/L BUN 32 H (7-17) mg/dL Creatinine 0.83 (0.52-1.04) mg/dL Glucose 123 H (74-99) mg/dL Calcium 7.7 L (8.4-10.2) mg/dL Total Bilirubin 0.7 (0.2-1.3) mg/dL AST 27 (14-36) U/L ALT 47 H (4-34) U/L Alkaline Phosphatase 75 (38-126) U/L Total Protein 5.0 L (6.3-8.2) g/dL Albumin 2.9 L (3.5-5.0) g/dL
--- NOTE | 2024-08-01 14:39 | P.OP ---
Date of Procedure: 08/01/24 Preoperative Diagnosis: Deep venous thrombosis with contraindication to anticoagulation. Postoperative Diagnosis: Same. Procedure(s) Performed: 1: Ultrasound-guided cannulation right femoral vein. 2: Right iliac venogram. 3: Placement of IVC filter. Anesthesia: local Surgeon: Isaak Copeland Estimated Blood Loss (ml): 10 Pathology: none sent Condition: stable Disposition: no change Indications for Procedure: Patient is a 74-year-old female who has a recent diagnosis of deep venous thrombosis. The patient is experiencing some bleeding at this time it is felt the patient would be well served by a retrievable IVC filter. The procedure, risk and benefits were discussed with the patient's daughter who is the power of waste management recycling technician. All questions were answered at daughter's satisfaction. Description of Procedure: Patient was brought to the cardiac catheterization suite. Both groins were sterilely prepped and draped in usual manner. Ultrasound examination of the right common femoral vein was performed which demonstrated the vein to be normally patent, compressible and free of visible thrombus. 1% Xylocaine was utilized for local anesthesia of the tissues overlying this venous segment. Through this anesthetized area with the aid of ultrasound a multipurpose needle was utilized to cannulate the vein. Once cannulated soft a guidewire was advanced into the vein. The needle was withdrawn and a 6 Israeli sheath was placed. Right iliac venogram and inferior venacavogram was performed. This demonstrated no right iliac or vena caval thrombus in the confluence of both renal veins to the cava was identified, occurring at the L1 level. The cava itself measured well less than 28 mm in diameter. The 6 Israeli sheath was exchanged over guidewire for the Emily IVC filter sheath and dilator. This was advanced to the L1-L2 interspace. Dilator and guidewire were withdrawn. The filter was advanced and deployed at the L2-L3 interspace. Completion venogram demonstrated proper position of the filter with no evidence of tilt or other complication. With the above findings noted the sheath was withdrawn and pressure was held at the puncture site until all evidence of bleeding ceased. Patient tolerated procedure well and was returned to her room in satisfactory stable condition. Total fluoroscopy time: 0.4 minutes. Total contrast volume utilized 20 mL of Isovue.
[2024-08-01 15:42] LABS: % Iron Saturation 15.77 (12.00-45.00)
[2024-08-02] MEDS: HYDROmorphone 0.5 MG/0.5 ML SYRINGE IVP PRN (03:53)
[2024-08-02 07:36] LABS: HCT 26.4 % (37.2-46.3); HGB 8.9 g/dL (12.0-15.0); MCHC 33.7 g/dL (32.0-37.0); Mean Platelet Volume 9.8 fL (9.5-12.2); Platelet Count 199 10*3/uL (140-440); RBC 2.87 10*6/uL (4.10-5.20); RDW 15.5 % (11.5-14.5); WBC 12.72 10*3/uL (4.50-10.00)
[2024-08-02 08:22] LABS: African American GFR (CKD) 84 (>60 ml/min/1.73 sqM); Anion Gap 3 mmol/L; Blood Urea Nitrogen 28 mg/dL (7-17); Calcium 7.7 mg/dL (8.4-10.2); Carbon Dioxide 27 mmol/L (22-30); Chloride 108 mmol/L (98-107); Glucose 92 mg/dL (74-99); Non-African American GFR(CKD) 73 (>60 ml/min/1.73 sqM); Potassium 3.6 mmol/L (3.5-5.1); Sodium 138 mmol/L (137-145)
--- NOTE | 2024-08-02 10:19 | P.PN ---
Subjective Progress Note Date: 08/02/24 Principal diagnosis: Left rectus sheath hematoma Patient thinks her pain is slightly improved today. Says she is able to be a little bit more active moving around in bed. Hemoglobin stable. Objective - Vital Signs Vital signs: Vital Signs Temp 98.0 F 08/02/24 03:55 Pulse 77 08/02/24 03:55 Resp 19 08/02/24 03:55 BP 116/70 08/02/24 03:55 Pulse Ox 98 08/02/24 03:55 FiO2 Intake & Output 08/01/24 08/02/24 08/02/24 18:59 06:59 18:59 Intake Total 1773 Output Total 600 Balance 1773 -600 Weight 64.5 kg Intake: Intake, IV Titration 950 Amount Sodium Chloride 0.9% 1, 900 000 ml @ 75 mls/hr IV . [id number] [facility] Rx#:[id number] cefTRIAXone 1 gm In 50 Sodium Chloride 0.9% 50 ml @ 100 mls/hr IVPB Q24HR [facility] Rx#:[id number] Blood Product 823 Rc Pheresis As-3 Unit 273 [id number] Rc Pheresis As-3 Unit 275 [id number] Output: Urine 600 Other: Voiding Method Diaper Diaper External Catheter # Voids 2 # Bowel Movements 0 - Exam Abdomen: Soft, nondistended, left lower quadrant tenderness with fullness present, mild ecchymosis laterally - Labs CBC & Chem 7: 08/02/24 06:24 08/02/24 06:24 Labs: Abnormal Lab Results - Last 24 Hours (Table) 08/01/24 08/01/24 08/01/24 Range/Units 02:55 03:48 11:37 WBC 14.39 H (4.50-10.00) 10*3/uL RBC 2.78 L (4.10-5.20) 10*6/uL Hgb 8.6 L (12.0-15.0) g/dL Hct 25.5 L (37.2-46.3) % Chloride (98-107) mmol/L BUN (7-17) mg/dL Calcium (8.4-10.2) mg/dL Iron 38 L (50-170) UG/DL Transferrin 172.0 L (204.0-354.0) mg/dL Ferritin 354.0 H (10.0-291.0) ng/mL Crossmatch See Detail 08/02/24 08/02/24 Range/Units 06:24 06:24 WBC 12.72 H (4.50-10.00) 10*3/uL RBC 2.87 L (4.10-5.20) 10*6/uL Hgb 8.9 L (12.0-15.0) g/dL Hct 26.4 L (37.2-46.3) % Chloride 108 H (98-107) mmol/L BUN 28 H (7-17) mg/dL Calcium 7.7 L (8.4-10.2) mg/dL Iron (50-170) UG/DL Transferrin (204.0-354.0) mg/dL Ferritin (10.0-291.0) ng/mL Crossmatch Assessment and Plan (1) Hematoma of abdominal wall Narrative/Plan: 74-year-old female with left rectus sheath hematoma secondary to anticoagulant use. Continue monitoring hemoglobin. Gradually increase activity. Will follow. Current Visit: Yes Status: Acute Code(s): S30.1XXA - CONTUSION OF ABDOMINAL WALL, INITIAL ENCOUNTER SNOMED Code(s): 557288793
--- NOTE | 2024-08-02 17:09 | P.CONS ---
History of Present Illness - Reason for Consult Consult date: 08/02/24 hematoma, recent DVT Requesting physician: Ugo E Sheet - Chief Complaint abd pain - History of Present Illness Consult note from 07/27/24 The patient is a 74-year-old white female, with multiple medical problems. She had come into the emergency room, because of progressive shortness of breath, chest discomfort, and cough. The patient did go to the urgent care 7 to 8 days ago, because of respiratory symptoms as well as fever. She was diagnosed with influenza A, and was placed on Tamiflu. She states that she improved on the same initially, but then developed the above-mentioned symptoms, which were progressive causing her to come to the ER. In the ER her D-dimer was elevated leading to a CT angiogram. This was negative for PE but showed significant right lower lobe consolidation, as well as scattered infiltrates in the left lung. It was therefore felt that the patient likely had developed superimposed bacterial pneumonia. She was admitted, and placed on antibiotics. She is being followed by pulmonary medicine and ID The patient had Dopplers of bilateral lower extremities done, presumably for the elevated D-dimer. She states that she does get nocturnal leg cramps but has not noticed any change in pattern of her chronic complaints. Dopplers were negative on the right but on the left showed a popliteal DVT. Report unfortunately does not mention if this appears to be chronic or acute, or defines specifically if this is occlusive or nonocclusive. The wording of the report appears to indicate that it is nonocclusive The patient's labs showed a mild anemia and leukocytosis, consistent with the fact of infection. The patient states that she had DVT and PE many years ago. She does not recall details but feels that it may have been associated with a hospitalization. She believes that she was treated with warfarin for several months at the time. She has not been on any anticoagulation since but has been taking aspirin. Daughter confirmed patient had DVTs and possible PE, but this was at least 15 years ago. On further review of case by Vascular and Radiology felt acute component to DVT. Clot was felt to be provoked due to acute infection/immobilization. It was recommended full dose anticoagulation for minimum 3 months for provoked thrombus. She was started on Lovenox while inpt, and was transitioned to Eliquis prior to discharge. Plan was for outpt workup to r/o hypercoagulable state. Patient presented to the hospital for abdominal pain. Upon admit CT AP with contrast showed left rectus abdominis muscle acute hematoma anterior pelvic wall. Small amount of subcutaneous air is adjacent. 1.9cm hypodensity within the pancreas. Eliquis has been held. Vascular surgery consulted for IVC filter placement. Hgb was noted at 11.6, today 7.2. 2 units PRBCs ordered. WBC 14.2, plt 209,000. Bilirubin 0.7. Amylase and lipase WNL. AST 40, ALT 60, ALP 137. Daughter states, pt previously was told she had a pancreatic mass, was seen by a specialist years ago and was told it was a benign finding. Unsure of doctors name or hospital system the specialist worked out of. Review of Systems 10 point ROS is negative except as stated in the HPI Past Medical History Past Medical History: COPD, CVA/TIA, Deep Vein Thrombosis (DVT), Hyperlipidemia, Renal Disease, Seizure Disorder Additional Past Medical History / Comment(s): 2017 cva right side weakness and slow responses at times, short term memory impairment s/p stroke. osteoporosis, low BP, glaucoma, stage 3 chronic kidney disease, chronic sinusitis, left hand fracture s/p fall, stomach ulcers, syncope, dehydration, epilepsy over 25 years ago from last seizures, small hole in heart, 3 small brain aneurysms History of Any Multi-Drug Resistant Organisms: None Reported Past Surgical History: Adenoidectomy, Hysterectomy, Tonsillectomy Additional Past Surgical History / Comment(s): left hand surgey, Past Anesthesia/Blood Transfusion Reactions: No Reported Reaction Smoking Status: Former smoker - Past Family History Mother Family Medical History: No Reported History Brother(s) Family Medical History: Cancer Additional Family Medical History / Comment(s): Lung CA, TB Medications and Allergies Home Medications Medication Instructions Recorded Confirmed Type Aspirin 81 mg PO DAILY 09/09/21 07/31/24 History Atorvastatin [Lipitor] 40 mg PO DAILY 09/09/21 07/31/24 History Clopidogrel [Plavix] 75 mg PO DAILY 09/09/21 07/31/24 History Latanoprost/Pf [Latanoprost 0.005% 1 drop BOTH EYES HS 09/09/21 07/31/24 History Eye Drop] Midodrine HCl [ProAmantine] 2.5 mg PO DAILY 09/09/21 07/31/24 History Calcium Carbonate/Vitamin D3 2 tab PO DAILY 07/25/24 07/31/24 History [Calcium 600 mg-Vit D3 5 mcg (200 unit)] Ubidecarenone [Coenzyme Q10] 200 mg PO DAILY 07/25/24 07/31/24 History Albuterol Inhaler [Ventolin Hfa 2 puff INHALATION RT-QID PRN 30 07/30/24 07/31/24 Rx Inhaler] Days #1 each Budesonide-Formot 160-4.5 Mcg 2 puff INHALATION RT-BID 30 Days 07/30/24 07/31/24 Rx [Symbicort 160-4.5 Mcg Inhaler] #1 each Ipratropium-Albuterol Nebulize 3 ml INHALATION QID #360 ml 07/30/24 07/31/24 Rx [Duoneb 0.5 mg-3 mg/3 ml Soln] Nicotine 14Mg/24Hr Patch [Habitrol] 1 patch TRANSDERM DAILY #30 patch 07/30/24 07/31/24 Rx Pantoprazole [Protonix] 40 mg PO BID 15 Days #30 tab 07/30/24 07/31/24 Rx cefuroxime axetiL [Ceftin] 500 mg PO BID 7 Days #14 tab 07/30/24 07/31/24 Rx predniSONE See Taper PO DIRECTED #30 tab 07/30/24 07/31/24 Rx Apixaban [Eliquis Starter Pack See Taper PO DIRECTED 07/31/24 07/31/24 History (for VTE)] Allergies Allergy/AdvReac Type Severity Reaction Status Date / Time Penicillins Allergy throat Verified 07/31/24 12:53 swelling Physical Exam Vitals: Vital Signs Temp Pulse Pulse Resp BP BP Pulse Ox 08/01/24 08:51 98.9 F 93 16 98/61 95 08/01/24 08:31 98.9 F 92 16 95/61 93 L 08/01/24 08:21 98.9 F 96 16 95/55 90 L 08/01/24 05:16 111/50 08/01/24 02:52 99/44 08/01/24 02:00 98.4 F 98 15 86/53 07/31/24 20:23 83 20 07/31/24 20:15 81 20 07/31/24 20:00 97.4 F L 101 H 16 106/66 07/31/24 18:06 98.5 F 90 18 113/62 94 L 07/31/24 15:44 86 07/31/24 15:34 91 07/31/24 12:08 83 16 128/63 95 07/31/24 09:43 92 22 134/81 94 L Intake and Output 07/31/24 08/01/24 08/01/24 22:59 06:59 14:59 Intake Total 0 Output Total 102 Balance -102 0 Intake: Blood Product 0 Unit 0 Output: Urine 101 Stool 1 Other: Voiding Method Bedside Commode # Voids 1 # Bowel Movements 1 Weight 64.41 kg - Constitutional General appearance: average body habitus, no acute distress - EENT Eyes: anicteric sclerae, EOMI ENT: hearing grossly normal - Respiratory breathing even and unlabored - Cardiovascular skin warm and dry - Gastrointestinal lower abd tender and firmness General gastrointestinal: tenderness - Integumentary mild bruising to abdomen, r/t anticoagulant injections Integumentary: no cyanotic, no jaundiced Results CBC & Chem 7: 08/02/24 06:24 08/02/24 06:24 Labs: Abnormal Lab Results - Last 24 Hours (Table) 07/31/24 07/31/24 08/01/24 Range/Units 06:58 10:15 02:55 WBC 15.27 H (4.50-10.00) 10*3/uL RBC (4.10-5.20) 10*6/uL Hgb (12.0-15.0) g/dL Hct (37.2-46.3) % Immature Gran # (0.00-0.04) 10*3/uL Neutrophils # (Manual) 10.23 H (1.3-7.7) k/uL Monocytes # (Manual) 1.53 H (0-1.0) k/uL Nucleated RBCs 1 H (0-0) /100 WBC Potassium 3.4 L (3.5-5.1) mmol/L BUN 32 H (7-17) mg/dL Glucose 123 H (74-99) mg/dL Calcium 7.7 L (8.4-10.2) mg/dL ALT 47 H (4-34) U/L Total Protein 5.0 L (6.3-8.2) g/dL Albumin 2.9 L (3.5-5.0) g/dL Urine Protein Trace H (Negative) Urine Blood Trace H (Negative) Urine Mucus Rare H (None) /hpf Crossmatch 08/01/24 08/01/24 Range/Units 03:47 03:48 WBC 14.23 H (4.50-10.00) 10*3/uL RBC 2.33 L (4.10-5.20) 10*6/uL Hgb 7.2 L D (12.0-15.0) g/dL Hct 22.0 L (37.2-46.3) % Immature Gran # 1.20 H (0.00-0.04) 10*3/uL Neutrophils # (Manual) 12.52 H (1.3-7.7) k/uL Monocytes # (Manual) (0-1.0) k/uL Nucleated RBCs (0-0) /100 WBC Potassium (3.5-5.1) mmol/L BUN (7-17) mg/dL Glucose (74-99) mg/dL Calcium (8.4-10.2) mg/dL ALT (4-34) U/L Total Protein (6.3-8.2) g/dL Albumin (3.5-5.0) g/dL Urine Protein (Negative) Urine Blood (Negative) Urine Mucus (None) /hpf Crossmatch See Detail Chest x-ray: report reviewed CT scan - abdomen: report reviewed CT scan - pelvis: report reviewed Assessment and Plan (1) Abdominal pain Current Visit: Yes Status: Acute Priority: High Code(s): R10.9 - UNSPECIFIED ABDOMINAL PAIN SNOMED Code(s): 26213818 (2) Hematoma of abdominal wall Current Visit: Yes Status: Acute Priority: High Code(s): S30.1XXA - CONTUSION OF ABDOMINAL WALL, INITIAL ENCOUNTER SNOMED Code(s): 846954083 (3) Deep vein thrombosis (DVT) of popliteal vein of left lower extremity Current Visit: No Status: Acute Priority: High Code(s): I82.432 - ACUTE EMBOLISM AND THROMBOSIS OF LEFT POPLITEAL VEIN SNOMED Code(s): 315116899 (4) Anemia Current Visit: Yes Status: Acute Priority: Medium Code(s): D64.9 - ANEMIA, UNSPECIFIED SNOMED Code(s): 470526245 Plan: Abdominal wall hematoma r/t anticoagulation: Presented to the hospital for abdominal pain. -Upon admit CT AP with contrast showed left rectus abdominis muscle acute hematoma anterior pelvic wall. Small amount of subcutaneous air is adjacent. 1.9cm hypodensity within the pancreas. -Eliquis has been held -Vascular surgery consulted for IVC filter placement. -Hgb was 11.6 on admit, today 7.2. 2 units PRBCs ordered. Pt denies hematochezia and melena -Bilirubin 0.7. Amylase and lipase WNL. AST 40, ALT 60, ALP 137. -Continue to monitor CBC. Transfuse for hgb less than 7 or if symptomatic -Daughter states, pt previously was told she had a pancreatic mass, and was seen by a specialist years ago and was told it was a benign finding. Unsure of doctors name or hospital system the specialist worked out of. Recommend outpt MRCP to further evaluate Cased discussed with vascular team. Will plan to place IVC filter placement. Once patient can be placed back on AC, will plan for IVC filter removal Acute on chronic LLE DVT -Diagnosed during previous admission. [place] to be provoked due to acute infectio n/illness. -Recommended full dose anticoagulation for minimum 3 months for provoked thrombus. -Due to history of recurrent thrombus, plan was for f/u in office for hypercoagulable workup
[2024-08-02] MEDS: NYSTATIN 100,000 UNIT/ML SUSP 500,000 UNIT/5 ML CUP PO PRN (17:23)
--- NOTE | 2024-08-02 18:21 | P.PN ---
Subjective Progress Note Date: 08/01/24 74 years old female with past medical history of multiple medical problems as below. Was recently discharged from this hospital for bilateral pneumonia and COPD. Also she found to have DVT of the left lower extremity, evaluated by hematology/oncology team without dialysis acute on chronic DVT and patient was started on Eliquis with plan for outpatient hypercoagulable workup and continue to coagulation for 3 months. Presents in 1 day with worsening lower abdominal pain more on the left side it was severe about 10/10. Nonspecific and partially improved with morphine. With no vomiting or diarrhea. Also she has some urinary difficulty and bladder scan showed urine retention was about 680 mL and [place] catheter was placed start Flomax, patient currently feels better She denies chest pain or dyspnea. No headache dizziness weakness or numbness. She still feels very tired and lethargic and pale. Patient used to smoke prior to previous hospitalization and currently she is on nicotine patch. No alcohol or illicit drugs. Patient is hemodynamically stable and afebrile. WBC is elevated at 15 but also she was on steroids. Hemoglobin 11.6. Rest of the BMP is unremarkable. Liver enzymes mildly elevated. Urine analysis is slightly abnormal. Lipase is negative. CT of the abdomen pelvis showing left rectus abdominal hematoma and 1.9 cm hypodensity in the body of the pancreas. Also there is bilateral pulmonary infiltrates of the bases with small bilateral pleural effusion. On reviewing home medication she was on Eliquis aspirin and Plavix which were all placed on hold for now Objective - Vital Signs Vital signs: Vital Signs Temp 97.9 F 08/01/24 11:12 Pulse 92 08/01/24 11:12 Resp 16 08/01/24 11:12 BP 120/71 08/01/24 11:12 Pulse Ox 94 L 08/01/24 11:12 FiO2 Intake & Output 07/31/24 08/01/24 08/01/24 18:59 06:59 18:59 Intake Total 275 Output Total 800 102 Balance -800 -102 275 Weight 64.41 kg Intake: Blood Product 275 Rc Pheresis As-3 Unit 275 [id number] Output: Urine 800 101 Straight 800 Stool 1 Other: Voiding Method Bedside Commode # Voids 1 # Bowel Movements 1 - Exam GENERAL: The patient is alert and oriented x3, not in any acute distress. Well developed, well nourished. HEENT: Pupils are round and equally reacting to light. EOMI. No scleral icterus. No conjunctival pallor. Normocephalic, atraumatic. No pharyngeal erythema. No thyromegaly. CARDIOVASCULAR: S1 and S2 present. No murmurs, rubs, or gallops. PULMONARY: Chest is clear to auscultation, no wheezing , no crackles. -ABDOMEN: Soft, left lower quadrant tenderness with mild fullness er, nondistended, normoactive bowel sounds. No palpable organomegaly. MUSCULOSKELETAL: No joint swelling or deformity. EXTREMITIES: No cyanosis, clubbing, or pedal edema. NEUROLOGICAL: Gross neurological examination did not reveal any focal deficits. SKIN: No rashes. no petechiae. - Labs CBC & Chem 7: 08/02/24 06:24 08/02/24 06:24 Labs: Abnormal Lab Results - Last 24 Hours (Table) 08/01/24 08/01/24 08/01/24 Range/Units 02:55 03:47 03:48 WBC 14.23 H (4.50-10.00) 10*3/uL RBC 2.33 L (4.10-5.20) 10*6/uL Hgb 7.2 L D (12.0-15.0) g/dL Hct 22.0 L (37.2-46.3) % Immature Gran # 1.20 H (0.00-0.04) 10*3/uL Neutrophils # (Manual) 12.52 H (1.3-7.7) k/uL Potassium 3.4 L (3.5-5.1) mmol/L BUN 32 H (7-17) mg/dL Glucose 123 H (74-99) mg/dL Calcium 7.7 L (8.4-10.2) mg/dL ALT 47 H (4-34) U/L Total Protein 5.0 L (6.3-8.2) g/dL Albumin 2.9 L (3.5-5.0) g/dL Crossmatch See Detail Assessment and Plan Assessment: Left rectal sheath hematoma 1.9 cm hypodensity in the body of the pancreas Abdominal pain secondary to above Recent history of acute on chronic left DVT. Recent history of bilateral lower lobe pneumonia Recent history of acute COPD exacerbation currently there is no exacerbation and breathing is quiet. 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 Continue with pain medication. Surgery team consult GI team consult Patient and daughter at bedside were informed about the problems including the possible pancreatic mass. Labs and medication were reviewed.. Continue same treatment. Continue with symptomatic treatment. Resume home medication. Monitor labs and vitals. DVT and GI prophylaxis. Further recommendations as per clinical course of the patient DVT prophylaxis: No anticoagulation in view of acute hematoma GI Prophylaxis: Pepcid PT/OT: Pending Prognosis is guarded
--- NOTE | 2024-08-02 18:25 | P.PN ---
Subjective Progress Note Date: 08/02/24 74 years old female with past medical history of multiple medical problems as below. Was recently discharged from this hospital for bilateral pneumonia and COPD. Also she found to have DVT of the left lower extremity, evaluated by hematology/oncology team without dialysis acute on chronic DVT and patient was started on Eliquis with plan for outpatient hypercoagulable workup and continue to coagulation for 3 months. Presents in 1 day with worsening lower abdominal pain more on the left side it was severe about 10/10. Nonspecific and partially improved with morphine. With no vomiting or diarrhea. Also she has some urinary difficulty and bladder scan showed urine retention was about 680 mL and [place] catheter was placed start Flomax, patient currently feels better She denies chest pain or dyspnea. No headache dizziness weakness or numbness. She still feels very tired and lethargic and pale. Patient used to smoke prior to previous hospitalization and currently she is on nicotine patch. No alcohol or illicit drugs. Patient is hemodynamically stable and afebrile. WBC is elevated at 15 but also she was on steroids. Hemoglobin 11.6. Rest of the BMP is unremarkable. Liver enzymes mildly elevated. Urine analysis is slightly abnormal. Lipase is negative. CT of the abdomen pelvis showing left rectus abdominal hematoma and 1.9 cm hypodensity in the body of the pancreas. Also there is bilateral pulmonary infiltrates of the bases with small bilateral pleural effusion. On reviewing home medication she was on Eliquis aspirin and Plavix which were all placed on hold for now 08/02/2024 Patient is seen and evaluated with family at bedside; patient is status post IVC filter placement yesterday; reports improvement in abdominal pain Vital signs reviewed reveal temperature of 98, pulse 77, respiration 19 and blood pressure 116/70, O2 saturation 98% Lab review shows WBC of 12.7, hemoglobin stable at 8.9 after 2 units of packed RBCs, platelet count of 199, sodium 138, potassium 3.6, BUNs/creatinine of 28/0.81 and blood glucose of 92 --Abdominal wall hematoma; general surgery on board and recommending to continue to monitor H&H - Acute lower extremity DVT; aspirin, Plavix and Eliquis have been placed on hold; patient is status post IVC filter placement Objective - Vital Signs Vital signs: Vital Signs Temp 97.4 F L 08/02/24 08:50 Pulse 88 08/02/24 11:04 Resp 20 08/02/24 11:04 BP 110/70 08/02/24 08:50 Pulse Ox 89 L 08/02/24 10:52 FiO2 Intake & Output 08/01/24 08/02/24 08/02/24 18:59 06:59 18:59 Intake Total 1773 Output Total 600 1 Balance 1773 -600 -1 Weight 64.5 kg Intake: Intake, IV Titration 950 Amount Sodium Chloride 0.9% 1, 900 000 ml @ 75 mls/hr IV . [id number] [facility] Rx#:[id number] cefTRIAXone 1 gm In 50 Sodium Chloride 0.9% 50 ml @ 100 mls/hr IVPB Q24HR [facility] Rx#:[id number] Blood Product 823 Rc Pheresis As-3 Unit 273 [id number] Rc Pheresis As-3 Unit 275 [id number] Output: Urine 600 Stool 1 Other: Voiding Method Diaper Diaper Bedside Commode External Catheter Diaper Incontinent External Catheter # Voids 2 # Bowel Movements 0 - Exam GENERAL: The patient is alert and oriented x3, not in any acute distress. Well developed, well nourished. HEENT: Pupils are round and equally reacting to light. EOMI. No scleral icterus. No conjunctival pallor. Normocephalic, atraumatic. No pharyngeal erythema. No thyromegaly. CARDIOVASCULAR: S1 and S2 present. No murmurs, rubs, or gallops. PULMONARY: Chest is clear to auscultation, no wheezing , no crackles. -ABDOMEN: Soft, left lower quadrant tenderness with mild fullness er, nondiste nded, normoactive bowel sounds. No palpable organomegaly. MUSCULOSKELETAL: No joint swelling or deformity. EXTREMITIES: No cyanosis, clubbing, or pedal edema. NEUROLOGICAL: Gross neurological examination did not reveal any focal deficits. SKIN: No rashes. no petechiae. - Labs CBC & Chem 7: 08/02/24 06:24 08/02/24 06:24 Labs: Abnormal Lab Results - Last 24 Hours (Table) 08/01/24 08/01/24 08/01/24 Range/Units 02:55 03:48 11:37 WBC 14.39 H (4.50-10.00) 10*3/uL RBC 2.78 L (4.10-5.20) 10*6/uL Hgb 8.6 L (12.0-15.0) g/dL Hct 25.5 L (37.2-46.3) % Chloride (98-107) mmol/L BUN (7-17) mg/dL Calcium (8.4-10.2) mg/dL Iron 38 L (50-170) UG/DL Transferrin 172.0 L (204.0-354.0) mg/dL Ferritin 354.0 H (10.0-291.0) ng/mL Crossmatch See Detail 08/02/24 08/02/24 Range/Units 06:24 06:24 WBC 12.72 H (4.50-10.00) 10*3/uL RBC 2.87 L (4.10-5.20) 10*6/uL Hgb 8.9 L (12.0-15.0) g/dL Hct 26.4 L (37.2-46.3) % Chloride 108 H (98-107) mmol/L BUN 28 H (7-17) mg/dL Calcium 7.7 L (8.4-10.2) mg/dL Iron (50-170) UG/DL Transferrin (204.0-354.0) mg/dL Ferritin (10.0-291.0) ng/mL Crossmatch Assessment and Plan Assessment: Left rectal sheath hematoma 1.9 cm hypodensity in the body of the pancreas Abdominal pain secondary to above Recent history of acute on chronic left DVT. Recent history of bilateral lower lobe pneumonia Recent history of acute COPD exacerbation currently there is no exacerbation and breathing is quiet. 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 Continue with pain medication. Surgery team consult GI team consult Patient and daughter at bedside were informed about the problems including the possible pancreatic mass. Labs and medication were reviewed.. Continue same treatment. Continue with symptomatic treatment. Resume home medication. Monitor labs and vitals. DVT and GI prophylaxis. Further recommendations as per clinical course of the patient DVT prophylaxis: No anticoagulation in view of acute hematoma GI Prophylaxis: Pepcid PT/OT: Pending Prognosis is guarded
[2024-08-03 07:26] LABS: Basophils # (A) 0.02 10*3/uL (0.00-0.10); Basophils % (A) 0.1 %; Eosinophils # (A) 0.12 10*3/uL (0.04-0.35); Eosinophils % (A) 0.8 %; HCT 25.5 % (37.2-46.3); HGB 8.3 g/dL (12.0-15.0); Lymphocytes # (A) 2.11 10*3/uL (0.90-5.00); Lymphocytes % (A) 13.8 %; MCH 30.3 pg (27.0-32.0); MCHC 32.5 g/dL (32.0-37.0); MCV 93.1 fL (80.0-97.0); Mean Platelet Volume 9.3 fL (9.5-12.2); Monocytes # (A) 0.76 10*3/uL (0.20-1.00); Neutrophils # (A) 11.84 10*3/uL (1.80-7.70); Neutrophils % (A) 77.7 %; Platelet Count 216 10*3/uL (140-440); RBC 2.74 10*6/uL (4.10-5.20); RDW 15.2 % (11.5-14.5); WBC 15.24 10*3/uL (4.50-10.00)
[2024-08-03 07:45] LABS: Prothrombin Time 10.7 sec (10.0-12.5)
[2024-08-03 07:57] LABS: African American GFR (CKD) >90 (>60 ml/min/1.73 sqM); Anion Gap 4 mmol/L; Blood Urea Nitrogen 19 mg/dL (7-17); Calcium 8.4 mg/dL (8.4-10.2); Carbon Dioxide 27 mmol/L (22-30); Chloride 106 mmol/L (98-107); Glucose 85 mg/dL (74-99); Non-African American GFR(CKD) 88 (>60 ml/min/1.73 sqM); Potassium 3.7 mmol/L (3.5-5.1); Sodium 137 mmol/L (137-145)
--- NOTE | 2024-08-03 10:32 | P.PN ---
Subjective Progress Note Date: 08/03/24 Principal diagnosis: Left rectus sheath hematoma Patient doing better today. Says her pain is improved. She is sitting up in the chair today. Says it was easier to get in and out of bed. Hemoglobin today 8.3. Objective - Vital Signs Vital signs: Vital Signs Temp 98.4 F 08/03/24 08:00 Pulse 88 08/03/24 08:46 Resp 18 08/03/24 08:46 BP 115/56 08/03/24 08:00 Pulse Ox 94 L 08/03/24 08:34 FiO2 Intake & Output 08/02/24 08/03/24 08/03/24 18:59 06:59 18:59 Intake Total 960 Output Total 2 550 Balance 958 -550 Intake: Oral 960 Output: Urine 550 Stool 2 Other: Voiding Method Bedside Commode Diaper Diaper External Catheter Incontinent External Catheter # Bowel Movements 1 - Exam Abdomen: Soft, slightly less tenderness left lower quadrant, some bruising again present - Labs CBC & Chem 7: 08/03/24 06:31 08/03/24 06:31 Labs: Abnormal Lab Results - Last 24 Hours (Table) 08/03/24 08/03/24 Range/Units 06:31 06:31 WBC 15.24 H (4.50-10.00) 10*3/uL RBC 2.74 L (4.10-5.20) 10*6/uL Hgb 8.3 L (12.0-15.0) g/dL Hct 25.5 L (37.2-46.3) % MPV 9.3 L (9.5-12.2) fL Immature Gran # 0.39 H (0.00-0.04) 10*3/uL Neutrophils # 11.84 H (1.80-7.70) 10*3/uL BUN 19 H (7-17) mg/dL Assessment and Plan (1) Hematoma of abdominal wall Narrative/Plan: Patient doing slightly better. Continue to follow hemoglobin. If doing well tomorrow may discharge from our point of view. Current Visit: Yes Status: Acute Priority: High Code(s): S30.1XXA - CONTUSION OF ABDOMINAL WALL, INITIAL ENCOUNTER SNOMED Code(s): 798923618
--- NOTE | 2024-08-03 15:06 | P.PN ---
Subjective Progress Note Date: 08/03/24 74 years old female with past medical history of multiple medical problems as below. Was recently discharged from this hospital for bilateral pneumonia and COPD. Also she found to have DVT of the left lower extremity, evaluated by hematology/oncology team without dialysis acute on chronic DVT and patient was started on Eliquis with plan for outpatient hypercoagulable workup and continue to coagulation for 3 months. Presents in 1 day with worsening lower abdominal pain more on the left side it was severe about 10/10. Nonspecific and partially improved with morphine. With no vomiting or diarrhea. Also she has some urinary difficulty and bladder scan showed urine retention was about 680 mL and [place] catheter was placed start Flomax, patient currently feels better She denies chest pain or dyspnea. No headache dizziness weakness or numbness. She still feels very tired and lethargic and pale. Patient used to smoke prior to previous hospitalization and currently she is on nicotine patch. No alcohol or illicit drugs. Patient is hemodynamically stable and afebrile. WBC is elevated at 15 but also she was on steroids. Hemoglobin 11.6. Rest of the BMP is unremarkable. Liver enzymes mildly elevated. Urine analysis is slightly abnormal. Lipase is negative. CT of the abdomen pelvis showing left rectus abdominal hematoma and 1.9 cm hypodensity in the body of the pancreas. Also there is bilateral pulmonary infiltrates of the bases with small bilateral pleural effusion. On reviewing home medication she was on Eliquis aspirin and Plavix which were all placed on hold for now 08/02/2024 Patient is seen and evaluated with family at bedside; patient is status post IVC filter placement yesterday; reports improvement in abdominal pain Vital signs reviewed reveal temperature of 98, pulse 77, respiration 19 and blood pressure 116/70, O2 saturation 98% Lab review shows WBC of 12.7, hemoglobin stable at 8.9 after 2 units of packed RBCs, platelet count of 199, sodium 138, potassium 3.6, BUNs/creatinine of 28/0.81 and blood glucose of 92 --Abdominal wall hematoma; general surgery on board and recommending to continue to monitor H&H - Acute lower extremity DVT; aspirin, Plavix and Eliquis have been placed on hold; patient is status post IVC filter placement 08/03/2024 Patient is seen and evaluated sitting up in bed; family members at bedside; continues to report improvement in pain Vital signs are reviewed and stable temperature 98.4, pulse 88, respiration 18 and blood pressure of 115/56 O2 saturation 94% Lab review shows WBC 15.2, hemoglobin 8.3 and platelet count of 216 Sodium 137, potassium 3.7, BUNs/creatinine of 19/0.66 -General Surgery on board and clearing patient for discharge in next 24 hours if remains stable - Patient is status post IVC filter placement Objective - Vital Signs Vital signs: Vital Signs Temp 97.9 F 08/03/24 03:42 Pulse 88 08/03/24 08:46 Resp 18 08/03/24 08:46 BP 123/76 08/03/24 03:42 Pulse Ox 94 L 08/03/24 08:34 FiO2 Intake & Output 08/02/24 08/03/24 08/03/24 18:59 06:59 18:59 Intake Total 960 Output Total 2 550 Balance 958 -550 Intake: Oral 960 Output: Urine 550 Stool 2 Other: Voiding Method Bedside Commode Diaper Diaper External Catheter Incontinent External Catheter # Bowel Movements 1 - Exam GENERAL: The patient is alert and oriented x3, not in any acute distress. Well developed, well nourished. HEENT: Pupils are round and equally reacting to light. EOMI. No scleral icterus. No conjunctival pallor. Normocephalic, atraumatic. No pharyngeal erythema. No thyromegaly. CARDIOVASCULAR: S1 and S2 present. No murmurs, rubs, or gallops. PULMONARY: Chest is clear to auscultation, no wheezing , no crackles. -ABDOMEN: Soft, left lower quadrant tenderness with mild fullness er, nondi stended, normoactive bowel sounds. No palpable organomegaly. MUSCULOSKELETAL: No joint swelling or deformity. EXTREMITIES: No cyanosis, clubbing, or pedal edema. NEUROLOGICAL: Gross neurological examination did not reveal any focal deficits. SKIN: No rashes. no petechiae. - Labs CBC & Chem 7: 08/03/24 06:31 08/03/24 06:31 Labs: Abnormal Lab Results - Last 24 Hours (Table) 08/03/24 08/03/24 Range/Units 06:31 06:31 WBC 15.24 H (4.50-10.00) 10*3/uL RBC 2.74 L (4.10-5.20) 10*6/uL Hgb 8.3 L (12.0-15.0) g/dL Hct 25.5 L (37.2-46.3) % MPV 9.3 L (9.5-12.2) fL Immature Gran # 0.39 H (0.00-0.04) 10*3/uL Neutrophils # 11.84 H (1.80-7.70) 10*3/uL BUN 19 H (7-17) mg/dL Assessment and Plan Assessment: Left rectal sheath hematoma 1.9 cm hypodensity in the body of the pancreas Abdominal pain secondary to above Recent history of acute on chronic left DVT. Recent history of bilateral lower lobe pneumonia Recent history of acute COPD exacerbation currently there is no exacerbation and breathing is quiet. 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 Continue with pain medication. Surgery team consult GI team consult Patient and daughter at bedside were informed about the problems including the possible pancreatic mass. Labs and medication were reviewed.. Continue same treatment. Continue with symptomatic treatment. Resume home medication. Monitor labs and vitals. DVT and GI prophylaxis. Further recommendations as per clinical course of the patient DVT prophylaxis: No anticoagulation in view of acute hematoma GI Prophylaxis: Pepcid PT/OT: Pending Prognosis is guarded
[2024-08-03] MEDS: HYDROcodone/APAP 5-325MG 1 EACH TAB PO PRN (17:23)
[2024-08-04 06:38] LABS: Basophils # (A) 0.03 10*3/uL (0.00-0.10); Basophils % (A) 0.2 %; Eosinophils # (A) 0.15 10*3/uL (0.04-0.35); Eosinophils % (A) 1.2 %; HCT 26.2 % (37.2-46.3); HGB 8.8 g/dL (12.0-15.0); Lymphocytes % (A) 15.6 %; MCH 31.4 pg (27.0-32.0); MCHC 33.6 g/dL (32.0-37.0); MCV 93.6 fL (80.0-97.0); Mean Platelet Volume 9.3 fL (9.5-12.2); Monocytes # (A) 0.66 10*3/uL (0.20-1.00); Monocytes % (A) 5.2 %; Neutrophils # (A) 9.65 10*3/uL (1.80-7.70); Neutrophils % (A) 75.4 %; Platelet Count 242 10*3/uL (140-440); RDW 15.2 % (11.5-14.5)
[2024-08-04 07:16] LABS: African American GFR (CKD) >90 (>60 ml/min/1.73 sqM); Anion Gap 2 mmol/L; Blood Urea Nitrogen 17 mg/dL (7-17); Calcium 8.7 mg/dL (8.4-10.2); Carbon Dioxide 30 mmol/L (22-30); Chloride 102 mmol/L (98-107); Glucose 81 mg/dL (74-99); Non-African American GFR(CKD) 88 (>60 ml/min/1.73 sqM); Potassium 3.8 mmol/L (3.5-5.1); Sodium 134 mmol/L (137-145)
--- NOTE | 2024-08-04 11:01 | P.PN ---
Subjective Progress Note Date: 08/04/24 Principal diagnosis: Abdominal wall hematoma, unable to anticoagulate This is a 74-year-old female with recent diagnosis for left lower extremity DVT who had been started on anticoagulation. She presented back to the emergency department with abdominal pain noted to have abdominal wall hematoma. General surgery recommended IVC filter and discontinue anticoagulation. Patient underwent IVC filter placement via right femoral vein. Patient denies any pain in her right groin. No bleeding. Objective - Vital Signs Vital signs: Vital Signs Temp 97.8 F 08/04/24 08:49 Pulse 98 08/04/24 08:49 Resp 16 08/04/24 08:49 BP 104/59 08/04/24 08:49 Pulse Ox 92 L 08/04/24 08:49 FiO2 Intake & Output 08/03/24 08/04/24 08/04/24 18:59 06:59 18:59 Intake Total 480 240 Balance 480 240 Weight 68.1 kg Intake: Oral 480 240 Other: Voiding Method Diaper Bedside Commode Toilet External Catheter Diaper Bedside Commode # Voids 1 1 # Bowel Movements 1 - Exam General appearance: The patient is alert, oriented, appears in no acute distress. HET: Head is normocephalic and atraumatic. Pupils are equal and reactive. Neck: Supple. Heart: Regular. Lungs: Equal expansion, normal respiratory effort. Abdomen: Soft, nontender, nondistended. Extremities: Normal skin color and turgor. Patient has palpable femoral pulse. Right groin access site without any active bleeding, minimal bruise, no hematoma. Neurological: No focal deficits. Strength and sensation are grossly intact. - Labs CBC & Chem 7: 08/04/24 06:18 08/04/24 06:18 Labs: Abnormal Lab Results - Last 24 Hours (Table) 08/04/24 08/04/24 Range/Units 06:18 06:18 WBC 12.80 H (4.50-10.00) 10*3/uL RBC 2.80 L (4.10-5.20) 10*6/uL Hgb 8.8 L (12.0-15.0) g/dL Hct 26.2 L (37.2-46.3) % MPV 9.3 L (9.5-12.2) fL Immature Gran # 0.31 H (0.00-0.04) 10*3/uL Neutrophils # 9.65 H (1.80-7.70) 10*3/uL Sodium 134 L (137-145) mmol/L Assessment and Plan Assessment: 1. Acute left lower extremity popliteal deep vein thrombosis unable to be anticoagulated status post IVC filter placement 2. Left rectus abdominis muscle acute hematoma 3. Acute blood loss anemia 4. Pneumonia 5. History of previous DVT and pulmonary embolism Plan: 1. Patient is status post IVC filter placement 2. Rest of medical management per primary medical team and general surgery 3. Patient to follow-up with hematology in outpatient setting. Discussed patient's case they will refer her to vascular surgery for possible IVC filter removal Thank you for this consultation, vascular surgery will sign off at this time. The impression and plan of care has been dictated as directed. I performed a history and examination of this patient, discussed the same with the dictator. I agree with the dictator's note ,documented as a scribe. Any additional findings or plans will be noted.
--- NOTE | 2024-08-04 12:39 | P.PN ---
Subjective Progress Note Date: 08/04/24 SURGICAL PROGRESS NOTE CHIEF COMPLAINT: Rectus sheath hematoma HISTORY OF PRESENT ILLNESS: Patient reports improvement in her abdominal pain. Hemoglobin is stable at 8.8. She is status post IVC filter. Afebrile. PHYSICAL EXAM: VITAL SIGNS: Reviewed. GENERAL: Well-developed in no acute distress. ABDOMEN: Soft. Nondistended. Mild tenderness left lower quadrant. Ecchymosis noted left lower abdomen. NEUROLOGIC: Alert and oriented. Cranial nerves II through XII grossly intact. ASSESSMENT: 1. Left rectus sheath hematoma PLAN: -No surgical intervention planned -Okay to discharge from surgical standpoint -Surgical service will sign off. Please call with any questions or concerns. Physician Show Host note has been reviewed by physician. Signing provider agrees with the documented findings, assessment, and plan of care. Objective - Vital Signs Vital signs: Vital Signs Temp 97.9 F 08/04/24 11:12 Pulse 78 08/04/24 11:24 Resp 16 08/04/24 11:12 BP 119/77 08/04/24 11:12 Pulse Ox 92 L 08/04/24 11:16 FiO2 Intake & Output 08/03/24 08/04/24 08/04/24 18:59 06:59 18:59 Intake Total 480 240 Balance 480 240 Weight 68.1 kg Intake: Oral 480 240 Other: Voiding Method Diaper Bedside Commode Toilet External Catheter Diaper Bedside Commode # Voids 1 1 # Bowel Movements 1 - Labs CBC & Chem 7: 08/04/24 06:18 08/04/24 06:18 Labs: Abnormal Lab Results - Last 24 Hours (Table) 08/04/24 08/04/24 Range/Units 06:18 06:18 WBC 12.80 H (4.50-10.00) 10*3/uL RBC 2.80 L (4.10-5.20) 10*6/uL Hgb 8.8 L (12.0-15.0) g/dL Hct 26.2 L (37.2-46.3) % MPV 9.3 L (9.5-12.2) fL Immature Gran # 0.31 H (0.00-0.04) 10*3/uL Neutrophils # 9.65 H (1.80-7.70) 10*3/uL Sodium 134 L (137-145) mmol/L
--- NOTE | 2024-08-04 20:36 | P.PN ---
Subjective Progress Note Date: 08/04/24 Principal diagnosis: Bleeding on anticoagulation, new DVT In follow-up today patient is ambulating around the room, no acute complaints, she denies any bleeding. Back cramping and left flank pain is better than it was on admission. Objective - Vital Signs Vital signs: Vital Signs Temp 97.9 F 08/04/24 11:12 Pulse 78 08/04/24 11:24 Resp 16 08/04/24 11:12 BP 119/77 08/04/24 11:12 Pulse Ox 92 L 08/04/24 11:16 FiO2 Intake & Output 08/03/24 08/04/24 08/04/24 18:59 06:59 18:59 Intake Total 480 240 Balance 480 240 Weight 68.1 kg Intake: Oral 480 240 Other: Voiding Method Diaper Bedside Commode Toilet External Catheter Diaper Bedside Commode # Voids 1 1 # Bowel Movements 1 - Constitutional General appearance: Present: average body habitus, cooperative, no acute distress - EENT Eyes: Present: anicteric sclerae, EOMI ENT: Present: hearing grossly normal - Respiratory Details: resp unlabored while ambulating - Cardiovascular Details: skin warm, well perfused - Integumentary Integumentary: Present: normal - Neurologic Neurologic: Present: CNII-XII intact - Musculoskeletal Musculoskeletal: Present: strength equal bilaterally - Psychiatric Psychiatric: Present: A&O x's 3, appropriate affect, intact judgment & insight - Labs CBC & Chem 7: 08/04/24 06:18 08/04/24 06:18 Labs: Abnormal Lab Results - Last 24 Hours (Table) 08/04/24 08/04/24 Range/Units 06:18 06:18 WBC 12.80 H (4.50-10.00) 10*3/uL RBC 2.80 L (4.10-5.20) 10*6/uL Hgb 8.8 L (12.0-15.0) g/dL Hct 26.2 L (37.2-46.3) % MPV 9.3 L (9.5-12.2) fL Immature Gran # 0.31 H (0.00-0.04) 10*3/uL Neutrophils # 9.65 H (1.80-7.70) 10*3/uL Sodium 134 L (137-145) mmol/L Assessment and Plan Plan: Abdominal wall hematoma r/t anticoagulation -On admit CT AP with contrast showed left rectus abdominis muscle acute hematoma anterior pelvic wall. Small amount of subcutaneous air is adjacent. 1.9cm hypodensity within the pancreas. -Eliquis has been held, Vascular placed IVC filter. Once patient can be placed back on AC, if she can be, will plan for IVC filter removal. -Hgb was 11.6 on admit, today 8.8 s/p 2 units PRBCs ordered. No bleeding reported -Continue to monitor CBC. Transfuse for hgb less than 7 or if symptomatic -Daughter states, pt previously was told she had a pancreatic mass, and was seen by a specialist years ago and was told it was a benign finding. Recommend outpt MRCP to further evaluate. F/U with Dr. Sousa is planned Acute on chronic LLE DVT -Diagnosed during previous admission. [place] to be provoked due to acute infection/illness. -Recommended full dose anticoagulation for minimum 3 months for provoked thrombus. -Due to history of recurrent thrombus, plan was for f/u in office for hypercoagulable workup. Pending scheduling of this appt until pt is discharged Doctor attests: I performed a history and physical examination of this patient, developed impression and plan of care. Discussed with dictator. I agree with dictators note, documented as a scribe.
--- NOTE | 2024-08-04 22:07 | P.PN ---
Subjective Progress Note Date: 08/04/24 74 years old female with past medical history of multiple medical problems as below. Was recently discharged from this hospital for bilateral pneumonia and COPD. Also she found to have DVT of the left lower extremity, evaluated by hematology/oncology team without dialysis acute on chronic DVT and patient was started on Eliquis with plan for outpatient hypercoagulable workup and continue to coagulation for 3 months. Presents in 1 day with worsening lower abdominal pain more on the left side it was severe about 10/10. Nonspecific and partially improved with morphine. With no vomiting or diarrhea. Also she has some urinary difficulty and bladder scan showed urine retention was about 680 mL and [place] catheter was placed start Flomax, patient currently feels better She denies chest pain or dyspnea. No headache dizziness weakness or numbness. She still feels very tired and lethargic and pale. Patient used to smoke prior to previous hospitalization and currently she is on nicotine patch. No alcohol or illicit drugs. Patient is hemodynamically stable and afebrile. WBC is elevated at 15 but also she was on steroids. Hemoglobin 11.6. Rest of the BMP is unremarkable. Liver enzymes mildly elevated. Urine analysis is slightly abnormal. Lipase is negative. CT of the abdomen pelvis showing left rectus abdominal hematoma and 1.9 cm hypodensity in the body of the pancreas. Also there is bilateral pulmonary infiltrates of the bases with small bilateral pleural effusion. On reviewing home medication she was on Eliquis aspirin and Plavix which were all placed on hold for now 08/02/2024 Patient is seen and evaluated with family at bedside; patient is status post IVC filter placement yesterday; reports improvement in abdominal pain Vital signs reviewed reveal temperature of 98, pulse 77, respiration 19 and blood pressure 116/70, O2 saturation 98% Lab review shows WBC of 12.7, hemoglobin stable at 8.9 after 2 units of packed RBCs, platelet count of 199, sodium 138, potassium 3.6, BUNs/creatinine of 28/0.81 and blood glucose of 92 --Abdominal wall hematoma; general surgery on board and recommending to continue to monitor H&H - Acute lower extremity DVT; aspirin, Plavix and Eliquis have been placed on hold; patient is status post IVC filter placement 08/03/2024 Patient is seen and evaluated sitting up in bed; family members at bedside; continues to report improvement in pain Vital signs are reviewed and stable temperature 98.4, pulse 88, respiration 18 and blood pressure of 115/56 O2 saturation 94% Lab review shows WBC 15.2, hemoglobin 8.3 and platelet count of 216 Sodium 137, potassium 3.7, BUNs/creatinine of 19/0.66 -General Surgery on board and clearing patient for discharge in next 24 hours if remains stable - Patient is status post IVC filter placement 08/04/2024 Patient is currently resting in the bed. Awake alert and oriented. On room air. No complaints of chest pain or shortness of breath. Patient is status post IVC filter placement. Anticoagulation is on hold. Denied any groin pain or no active bleeding. Laboratory data showed WBC 12.8 hemoglobin 8.8 and platelets 242 BUN 17 and creatinine 0.67 sodium 134 potassium 3.8 and chloride 102. General surgery and oncology is on board. Current medications reviewed. Objective - Vital Signs Vital signs: Vital Signs Temp 97.8 F 08/04/24 08:49 Pulse 98 08/04/24 08:49 Resp 16 08/04/24 08:49 BP 104/59 08/04/24 08:49 Pulse Ox 92 L 08/04/24 08:49 FiO2 Intake & Output 08/03/24 08/04/24 08/04/24 18:59 06:59 18:59 Intake Total 480 240 Balance 480 240 Weight 68.1 kg Intake: Oral 480 240 Other: Voiding Method Diaper Bedside Commode Toilet External Catheter Diaper Bedside Commode # Voids 1 1 # Bowel Movements 1 - Exam - Exam GENERAL: The patient is alert and oriented x3, not in any acute distress. Well developed, well nourished. HEENT: Pupils are round and equally reacting to light. EOMI. No scleral icterus. No conjunctival pallor. Normocephalic, atraumatic. No pharyngeal erythema. No thyromegaly. CARDIOVASCULAR: S1 and S2 present. No murmurs, rubs, or gallops. PULMONARY: Chest is clear to auscultation, no wheezing , no crackles. -ABDOMEN: Soft, left lower quadrant tenderness with mild fullness er, nondistended, normoactive bowel sounds. No palpable organomegaly. MUSCULOSKELETAL: No joint swelling or deformity. EXTREMITIES: No cyanosis, clubbing, or pedal edema. NEUROLOGICAL: Gross neurological examination did not reveal any focal deficits. SKIN: No rashes. no petechiae. - Labs CBC & Chem 7: 08/05/24 06:13 08/05/24 06:13 Labs: Abnormal Lab Results - Last 24 Hours (Table) 08/04/24 08/04/24 Range/Units 06:18 06:18 WBC 12.80 H (4.50-10.00) 10*3/uL RBC 2.80 L (4.10-5.20) 10*6/uL Hgb 8.8 L (12.0-15.0) g/dL Hct 26.2 L (37.2-46.3) % MPV 9.3 L (9.5-12.2) fL Immature Gran # 0.31 H (0.00-0.04) 10*3/uL Neutrophils # 9.65 H (1.80-7.70) 10*3/uL Sodium 134 L (137-145) mmol/L Assessment and Plan Assessment: Left rectal sheath hematoma. Improving 1.9 cm hypodensity in the body of the pancreas Abdominal pain secondary to above Recent history of acute on chronic left DVT. Recent history of bilateral lower lobe pneumonia Recent history of acute COPD exacerbation currently there is no exacerbation and breathing is quiet. Generalized weakness and lethargy Chronic kidney disease stage III History of seizure disorder History of CVA in 2017 History of PUBLICITY DIRECTOR aneurysm Glaucoma Osteoporosis Hold Eliquis and aspirin and Plavix Consult hematology/oncology team. Continue with pain medication. Surgery recommends no surgical intervention at this time. Patient and daughter at bedside were informed about the problems including the possible pancreatic mass.Recommend outpt MRCP to further evaluate as per oncology. Labs and medication were reviewed. Monitor labs and vitals. DVT and GI prophylaxis. Further recommendations as per clinical course of the patient DVT prophylaxis: No anticoagulation in view of acute hematoma GI Prophylaxis: Pepcid PT/OT: Pending Prognosis is guarded Time with Patient: Greater than 30
[2024-08-05 06:54] LABS: Basophils # (A) 0.01 10*3/uL (0.00-0.10); Basophils % (A) 0.1 %; Eosinophils # (A) 0.12 10*3/uL (0.04-0.35); HCT 27.8 % (37.2-46.3); HGB 9.1 g/dL (12.0-15.0); Lymphocytes # (A) 1.99 10*3/uL (0.90-5.00); Lymphocytes % (A) 17.2 %; MCH 31.2 pg (27.0-32.0); MCHC 32.7 g/dL (32.0-37.0); MCV 95.2 fL (80.0-97.0); Mean Platelet Volume 9.2 fL (9.5-12.2); Monocytes # (A) 0.84 10*3/uL (0.20-1.00); Monocytes % (A) 7.3 %; Neutrophils # (A) 8.38 10*3/uL (1.80-7.70); Neutrophils % (A) 72.3 %; Platelet Count 289 10*3/uL (140-440); RBC 2.92 10*6/uL (4.10-5.20); RDW 15.3 % (11.5-14.5); WBC 11.58 10*3/uL (4.50-10.00)
[2024-08-05 07:09] LABS: African American GFR (CKD) 76 (>60 ml/min/1.73 sqM); Anion Gap 6 mmol/L; Blood Urea Nitrogen 18 mg/dL (7-17); Calcium 9.8 mg/dL (8.4-10.2); Carbon Dioxide 32 mmol/L (22-30); Chloride 98 mmol/L (98-107); Glucose 82 mg/dL (74-99); Non-African American GFR(CKD) 66 (>60 ml/min/1.73 sqM); Sodium 136 mmol/L (137-145)
[2024-08-05] MEDS: NYSTATIN 100,000 UNIT/ML SUSP 500,000 UNIT/5 ML CUP PO SCH (12:15)
[2024-08-05] MEDS: SALT AND SODA MOUTHWASH 1,000 ML PO SCH (12:50)
--- NOTE | 2024-08-05 16:07 | IR ---
EXAMINATION TYPE: IR IVC filter placement Intraoperative/procedural fluoroscopic services were provid ed. CLINICAL INDICATION:Female, 74 years old with history of DVT; , [facility] FINDINGS: Multiple fluoroscopic images for IVC filter placement. Total fluoroscopy time is 0.4 min. DAP: 8.02 Gycm2 Please see the operative/procedural note for further details. [facility], , 08/05/2024 4:05 PM
[2024-08-06 07:33] VITALS: RESP 18
[2024-08-06] MEDS: predniSONE 20 MG TAB PO SCH (08:36)
[2024-08-06 11:24] VITALS: BP 103/63; PULSE 78; TEMP 98.2
--- NOTE | 2024-08-06 13:58 | P.PN ---
Subjective Progress Note Date: 08/06/24 Principal diagnosis: Bleeding on anticoagulation, new DVT In follow-up today patient is anxiously awaiting to go home. Bruising of the left abd is persistent, less tender to the touch, the bruising is healing, no hematoma, no other bleeding to report. She has a harsh cough, congested. Objective - Vital Signs Vital signs: Vital Signs Temp 98.2 F 08/06/24 11:23 Pulse 78 08/06/24 11:23 Resp 18 08/06/24 11:23 BP 103/63 08/06/24 11:23 Pulse Ox 95 08/06/24 11:23 FiO2 Intake & Output 08/05/24 08/06/24 08/06/24 18:59 06:59 18:59 Intake Total 436 10 Balance 436 10 Weight 65.6 kg Intake: IV 10 Invasive Line 3 10 Oral 436 Other: Voiding Method Toilet Toilet Toilet # Voids 1 1 # Bowel Movements 1 - Constitutional General appearance: Present: average body habitus, cooperative, no acute distress - EENT Eyes: Present: anicteric sclerae, EOMI ENT: Present: hearing grossly normal - Respiratory Details: resp unlabored - Cardiovascular Details: skin warm, well perfused - Peripheral edema leg Peripheral Edema: bilateral: Trace - Gastrointestinal General gastrointestinal: Present: normal bowel sounds, soft, tenderness (at the area of bruising left abd). Absent: absent bowel sounds, decreased bowel sounds, distended, hepatomegaly, hyperactive bowel sounds, organomegaly, rigid, scaphoid, splenomegaly, umbilical hernia, ventral hernia - Integumentary Integumentary: Present: normal - Neurologic Neurologic: Present: CNII-XII intact - Musculoskeletal Musculoskeletal: Present: strength equal bilaterally - Psychiatric Psychiatric: Present: A&O x's 3, appropriate affect, intact judgment & insight - Labs CBC & Chem 7: 08/05/24 06:13 08/05/24 06:13 Assessment and Plan (1) Hematoma of abdominal wall Current Visit: Yes Status: Acute Priority: High Code(s): S30.1XXA - CONTUSION OF ABDOMINAL WALL, INITIAL ENCOUNTER SNOMED Code(s): 047462246 (2) Deep vein thrombosis (DVT) of popliteal vein of left lower extremity Current Visit: No Status: Acute Priority: Medium Code(s): I82.432 - ACUTE EMBOLISM AND THROMBOSIS OF LEFT POPLITEAL VEIN SNOMED Code(s): 183695501 Plan: Abdominal wall hematoma r/t anticoagulation -On admit CT AP with contrast showed left rectus abdominis muscle acute hematoma anterior pelvic wall. Small amount of subcutaneous air is adjacent. 1.9cm hypodensity within the pancreas. -Eliquis held, Vascular placed IVC filter. Once patient can be placed back on AC, if she can be, will plan for IVC filter removal. -Hgb was 11.6 on admit, today 9.1 s/p 2 units PRBCs, stable. No bleeding reported, lt abd bruising is slowly healing -Daughter reports pt previously was told she had a pancreatic mass, and was seen by a specialist years ago and was told it was a benign finding. Recommend outpt MRCP to further evaluate. F/U with Dr. Sousa is planned. Acute on chronic LLE DVT -Diagnosed during previous admission. [place] to be provoked due to acute infection/illness. -Recommended full dose anticoagulation for minimum 3 months for provoked thrombus. -Due to history of recurrent thrombus, plan is for f/u in office for hypercoagulable workup. Pending scheduling of this appt until pt is discharged Pt ok from Hem standpoint once cleared by Attending and Consulting MDs
== END 2024-08-06 17:36 | disposition home or self-care (01) | DRG 813 ==
LOC: EC 06:25 → 6NMEDSUR 11:20 → 1SOBS 17:02 → 3SCARD 08-01 15:22 → OBSVTOIN 08-04 10:03
PROVIDERS: ADMIT Internal Medicine; ATTEND Internal Medicine
PROC: 30233N1 Transfusion of Nonautologous Red Blood Cells into Peripheral Vein, Percutaneous Approach (ICD-10-PCS; 2024-08-01)
PROC: 06H03DZ Insertion of Intraluminal Device into Inferior Vena Cava, Percutaneous Approach (ICD-10-PCS; principal; 2024-08-01 19:00)
PROC: B51F1ZZ Fluoroscopy of Right Pelvic (Iliac) Veins using Low Osmolar Contrast (ICD-10-PCS; principal; 2024-08-01 19:00)
DX: D68.32 Hemorrhagic disorder due to extrinsic circulating anticoagulants (principal); J15.9 Unspecified bacterial pneumonia; I82.432 Acute embolism and thrombosis of left popliteal vein; I67.1 Cerebral aneurysm, nonruptured; I69.351 Hemiplegia and hemiparesis following cerebral infarction affecting right dominant side; J44.0 Chronic obstructive pulmonary disease with (acute) lower respiratory infection; I69.311 Memory deficit following cerebral infarction; G40.909 Epilepsy, unspecified, not intractable, without status epilepticus; N18.30 Chronic kidney disease, stage 3 unspecified; I12.9 Hypertensive chronic kidney disease with stage 1 through stage 4 chronic kidney disease, or unspecified chronic kidney disease; D62 Acute posthemorrhagic anemia; E78.5 Hyperlipidemia, unspecified; R74.01 Elevation of levels of liver transaminase levels; M81.0 Age-related osteoporosis without current pathological fracture; H40.9 Unspecified glaucoma; J32.9 Chronic sinusitis, unspecified; F17.200 Nicotine dependence, unspecified, uncomplicated; T45.515A Adverse effect of anticoagulants, initial encounter; M79.81 Nontraumatic hematoma of soft tissue; K86.9 Disease of pancreas, unspecified; I95.9 Hypotension, unspecified; K57.90 Diverticulosis of intestine, part unspecified, without perforation or abscess without bleeding; R33.9 Retention of urine, unspecified; Z88.0 Allergy status to penicillin; Z86.711 Personal history of pulmonary embolism; Z79.51 Long term (current) use of inhaled steroids; Z86.718 Personal history of other venous thrombosis and embolism; Z79.01 Long term (current) use of anticoagulants; Z79.82 Long term (current) use of aspirin; Z79.899 Other long term (current) drug therapy; Z79.02 Long term (current) use of antithrombotics/antiplatelets
CPT/HCPCS: 36415; 37191; 51701; 51798; 74177; 80048; 80053; 81001; 82150; 82728; 83540; 83550; 83605; 83690; 85025; 85027; 85610; 86850; 86900; 86901; 86920; 94640; 94760; 96361; 96365; 96366; 96375; 99285

== ENCOUNTER → 2024-08-28 | Outpatient (CLI) | payer MEDICARE ==
--- NOTE | 2024-08-28 10:01 | MR ---
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 COMPARISON: CT abdomen and pelvis 07/31/2024. TECHNIQUE: Multi planar, T2-weighted imaging with and without fat saturation and chemical shift imag ing was performed of the abdomen. Then, heavily T2 weighted imaging was utilized in order to study th e biliary system. Maximum intensity projection images were reconstructed from the original data of t he biliary tree. No Gadolinium given. FINDINGS: MRCP: The intrahepatic ducts have a normal appearance. The common bile duct at the level of the mesa creatic head measures 6 mm in size. The common hepatic duct measures 3 mm in size. The pancreatic du ct is normal. The gallbladder appears unremarkable. There is a 2.0 cm T2 hyperintense signal lesion without definit [place] mural nodularity within the body the pancreas (series 701, image 27). No definitive communication with the pancreatic duct. Abdomen: The spleen and adrenal glands have a normal noncontrast appearance. Few subcentimeter thin-w alled T2 hyperintense cysts within the liver. Evaluation is limited due to lack of intravenous contra st. No suspicious enhancement on recent CT. Favored to be benign. No follow-up recommended. No hydron ephrosis. Multiple bilateral thin-walled small renal cysts. Mild dextrocurvature of the thoracolumbar spine. Mild cardiomegaly. Bilateral lower lobe patchy opacities with right greater than left. Correl ating to pneumonia IMPRESSION: 1. No evidence to suggest ductal stricture, choledocholithiasis, or biliary ductal dilatation. 2. Pancreatic body 2.0 cm thin-walled cystic lesion without mural nodularity. Corresponds to CT. May represent a pseudocyst versus side branch intraductal papillary mucinous neoplasm versus other etiol ogies. Recommend EUS/FNA versus follow-up MR in 6 months. 3. Bilateral lower lobe patchy opacities with right greater than left. Correlating to pneumonia seen on prior CT. [facility], , 08/28/2024 9:58 AM
== END | disposition home or self-care (01) ==
LOC: RADMRIMAIN 08:32
PROVIDERS: ATTEND Internal Medicine Hematology & Oncology
DX: D13.6 Benign neoplasm of pancreas (principal); K86.2 Cyst of pancreas; J98.4 Other disorders of lung
CPT/HCPCS: 74181

== ENCOUNTER 2024-11-19 08:14 | Day surgery (SDC) | payer MEDICARE ==
[2024-11-19] MEDS: SODIUM CHLORIDE 0.9% 1,000 ML IV SCH (09:04)
[2024-11-19] MEDS: IV FLUID CONTINUATION 1,000 ML IV ONE (09:15)
[2024-11-19 09:30] LABS: Basophils # (A) 0.07 10*3/uL (0.00-0.10); Basophils % (A) 1.3 %; Eosinophils # (A) 0.37 10*3/uL (0.04-0.35); Eosinophils % (A) 6.7 %; HCT 40.9 % (37.2-46.3); HGB 13.2 g/dL (12.0-15.0); Lymphocytes # (A) 1.48 10*3/uL (0.90-5.00); Lymphocytes % (A) 27.0 %; MCH 30.8 pg (27.0-32.0); MCHC 32.3 g/dL (32.0-37.0); MCV 95.6 fL (80.0-97.0); Monocytes # (A) 0.41 10*3/uL (0.20-1.00); Monocytes % (A) 7.5 %; Neutrophils # (A) 3.15 10*3/uL (1.80-7.70); Neutrophils % (A) 57.3 %; Platelet Count 158 10*3/uL (140-440); RBC 4.28 10*6/uL (4.10-5.20); RDW 13.5 % (11.5-14.5); WBC 5.49 10*3/uL (4.50-10.00)
[2024-11-19 09:46] LABS: African American GFR (CKD) 62 (>60 ml/min/1.73 sqM); Anion Gap 8 mmol/L; Blood Urea Nitrogen 24 mg/dL (7-17); Calcium 10.3 mg/dL (8.4-10.2); Carbon Dioxide 26 mmol/L (22-30); Chloride 105 mmol/L (98-107); Glucose 94 mg/dL (74-99); Non-African American GFR(CKD) 54 (>60 ml/min/1.73 sqM); Potassium 5.4 mmol/L (3.5-5.1); Sodium 139 mmol/L (137-145)
[2024-11-19] MEDS: HEPARIN SODIUM,PORCINE 10,000 UNIT in SODIUM CHLORIDE 0.9% 1,000 ML IRRIGATION ONE (09:54)
[2024-11-19] MEDS: MIDAZOLAM 2 MG/2 ML VIAL IVP ONE (09:59)
[2024-11-19] MEDS: fentaNYL (PF) 50 MCG/1 ML VIAL IVP ONE (09:59)
[2024-11-19] MEDS: LIDOCAINE 1% INJ 10MG/ML (20 ML MDV) SQ ONE (10:01)
[2024-11-19] MEDS: IOPAMIDOL-370 100ML BTL INJ ONE (10:19)
--- NOTE | 2024-11-19 10:34 | P.OP ---
Date of Procedure: 11/19/24 Preoperative Diagnosis: Retained IVC filter History of DVT and intra-abdominal bleeding Postoperative Diagnosis: Same Procedure(s) Performed: Ultrasound-guided right internal jugular vein access Intravascular removal of IVC filter Inferior vena cava venogram Conscious sedation x 21 minutes Anesthesia: local Surgeon: Surjit Hua Estimated Blood Loss (ml): 5 Pathology: none sent Condition: stable Disposition: PACU Indications for Procedure: 74-year-old female who previously was admitted to the hospital for DVT and was unable to be anticoagulated at that time due to intra-abdominal bleeding and had an IVC filter placed presents to the hospital for removal of the IVC filter after resolution of her bleeding and current anticoagulation utilization. Description of Procedure: After written and informed consent was obtained for the patient and all risk, benefits and complications were described the patient was brought to the Chief Librarian Extension Department and laid in the supine position. The area of the neck was prepped and draped in usual sterile fashion. Timeout was performed normal fashion with all parties in agreement. Under ultrasound the right internal jugular vein was located and shown to have no thrombus and was compressible. Utilizing a multipurpose needle the vein was accessed and guidewire was placed into the inferior vena cava followed by a snare retrieval sheath which was placed into the inferior vena cava just above the filter. Utilizing the snare the hook was grasped and in normal fashion the retrieval sheath was guided over the IVC filter and it was removed from the inferior vena cava. It was then removed externally and examined and shown to have all portions to be accounted for and no fractures. Final venogram was obtained demonstrating no extravasation or retained filter. All guidewires and catheters were then removed and pressure was held for hemostasis. The patient tolerated the procedure well and was sent to recovery.
[2024-11-19 14:01] VITALS: BP 125/67; PULSE 79; RESP 16
== END 2024-11-19 12:04 | disposition home or self-care (01) ==
LOC: OR 08:14
PROVIDERS: ATTEND Surgery
DX: Z45.2 Encounter for adjustment and management of vascular access device (principal); Q21.12 Patent foramen ovale; N18.9 Chronic kidney disease, unspecified; Z79.01 Long term (current) use of anticoagulants; Z79.02 Long term (current) use of antithrombotics/antiplatelets; Z79.82 Long term (current) use of aspirin; Z79.899 Other long term (current) drug therapy; Z87.891 Personal history of nicotine dependence; Z86.718 Personal history of other venous thrombosis and embolism; Z86.73 Personal history of transient ischemic attack (TIA), and cerebral infarction without residual deficits; Z88.0 Allergy status to penicillin; Z88.8 Allergy status to other drugs, medicaments and biological substances
CPT/HCPCS: 37193; 80048; 85025; J2250; J1644; J2003; Q9967; J3010